=== PATIENT | male | born 1930 | race Caucasian/White ===

== ENCOUNTER 2017-12-05 19:42 | Inpatient (IN) | payer BC, MEDICARE ==
[2017-12-05] MEDS ORDERED: PANTOPRAZOLE 40 MG/10 ML VIAL IVP STA (20:02)
[2017-12-05] MEDS ORDERED: RX INFO: IV CONTRAST WAS GIVEN 1 EACH MISC MISCELLANE PRN (20:02)
[2017-12-05] MEDS ORDERED: ONDANSETRON 4 MG/2 ML VIAL IVP STA (20:02)
[2017-12-05] MEDS ORDERED: SODIUM CHLORIDE 0.9% 1,000 ML IV STA (20:02)
--- NOTE | 2017-12-05 20:20 | ED ---
General Adult HPI <Artemio Alves - Last Filed: 12/06/17 00:14> - General Source: patient, RN notes reviewed, old records reviewed Mode of arrival: EMS Limitations: no limitations <Joel Sanford - Last Filed: 12/09/17 17:50> - General Chief complaint: Abdominal Pain Stated complaint: abd pain Time Seen by Provider: 12/05/17 19:50 - History of Present Illness Initial comments: This is an 87-year-old male the ER for evaluation chest pain epigastric pain substernal pain right lower quadrant pain, pain under his right ribs. Patient has no history of prior pain. No fevers no cough congestion, denies shortness of breath. Patient does have history of CAD, states that this is not feeling his prior heart disease. He has mild nausea but no vomiting. No diarrhea ( Joel Sanford) - Related Data Home Medications Medication Instructions Recorded Confirmed Atorvastatin [Lipitor] 20 mg PO HS 12/06/17 12/06/17 Digoxin [Lanoxin] 125 mcg PO DAILY 12/06/17 12/06/17 Latanoprost [Xalatan 0.005%] 1 drop BOTH EYES HS 12/06/17 12/06/17 Losartan Potassium [Cozaar] 25 mg PO DAILY 12/06/17 12/06/17 Metoprolol Tartrate [Lopressor] 100 mg PO BID 12/06/17 12/06/17 Warfarin [Coumadin] 2 mg PO DAILY 12/06/17 12/06/17 Allergies Allergy/AdvReac Type Severity Reaction Status Date / Time No Known Allergies Allergy Verified 12/05/17 19:55 Review of Systems ROS Other: All systems not noted in ROS Statement are negative. <Artemio Alves - Last Filed: 12/06/17 00:14> ROS Other: All systems not noted in ROS Statement are negative. <Joel Sanford - Last Filed: 12/09/17 17:50> ROS Statement: Those systems with pertinent positive or pertinent negative responses have been documented in the HPI. Past Medical History Past Medical History: Coronary Artery Disease (CAD), Chest Pain / Angina History of Any Multi-Drug Resistant Organisms: None Reported Past Surgical History: Coronary Bypass/CABG Past Psychological History: No Psychological Hx Reported Smoking Status: Former smoker Past Alcohol Use History: None Reported Past Drug Use History: None Reported <Joel Sanford - Last Filed: 12/09/17 17:50> General Exam Limitations: no limitations General appearance: alert, in no apparent distress Head exam: Present: atraumatic, normocephalic, normal inspection Eye exam: Present: normal appearance, PERRL, EOMI. Absent: scleral icterus, conjunctival injection, periorbital swelling ENT exam: Present: normal exam, mucous membranes moist Neck exam: Present: normal inspection. Absent: tenderness, meningismus, lymphadenopathy Respiratory exam: Present: normal lung sounds bilaterally. Absent: respiratory distress, wheezes, rales, rhonchi, stridor Cardiovascular Exam: Present: regular rate, normal rhythm, normal heart sounds. Absent: systolic murmur, diastolic murmur, rubs, gallop, clicks GI/Abdominal exam: Present: soft, normal bowel sounds. Absent: distended, tenderness, guarding, rebound, rigid Extremities exam: Present: normal inspection, full ROM, normal capillary refill. Absent: tenderness, pedal edema, joint swelling, calf tenderness Back exam: Present: normal inspection Neurological exam: Present: alert, oriented X3, CN II-XII intact Psychiatric exam: Present: normal affect, normal mood Skin exam: Present: warm, dry, intact, normal color. Absent: rash <Joel Sanford - Last Filed: 12/09/17 17:50> Vital Signs 12/05/17 12/05/17 12/05/17 19:50 21:25 23:37 Temperature 98.7 F Pulse Rate 111 H 75 90 Respiratory 20 18 20 Rate Blood Pressure 162/74 123/57 122/63 O2 Sat by Pulse 97 98 97 Oximetry 12/06/17 01:07 Temperature Pulse Rate 93 Respiratory Rate Blood Pressure O2 Sat by Pulse Oximetry EKG Findings - EKG Comments: EKG Findings:: EKG shows sinus tach rate of 102, TX 200, QRS 94, QTC 422 <Joel Sanford - Last Filed: 12/09/17 17:50> Medical Decision Making - Lab Data Result diagrams: 12/05/17 20:08 12/05/17 20:08 <Artemio Alves - Last Filed: 12/06/17 00:14> - Lab Data Result diagrams: 12/05/17 20:08 04/07/18 20:08 - Radiology Data Radiology results: report reviewed (CT chest CT abdomen pelvis negative), image reviewed <Joel Sanford - Last Filed: 12/09/17 17:50> - Medical Decision Making I receive this patient as sign out, pending the results of his imaging studies, to have the patient admitted for further evaluation on the acute coronary syndrome pathway. (Artemio Alves) - Lab Data Lab Results 12/05/17 12/05/17 12/05/17 Range/Units 20:08 20:08 20:08 WBC 4.1 (3.8-10.6) k/uL RBC 2.73 L (4.30-5.90) m/uL Hgb 8.9 L (13.0-17.5) gm/dL Hct 27.2 L (39.0-53.0) % MCV 99.6 (80.0-100.0) fL MCH 32.5 (25.0-35.0) pg MCHC 32.6 (31.0-37.0) g/dL RDW 18.8 H (11.5-15.5) % Plt Count 128 L (150-450) k/uL Neutrophils % 82 % Lymphocytes % 9 % Monocytes % 4 % Eosinophils % 0 % Basophils % 0 % Neutrophils # 3.4 (1.3-7.7) k/uL Lymphocytes # 0.4 L (1.0-4.8) k/uL Monocytes # 0.2 (0-1.0) k/uL Eosinophils # 0.0 (0-0.7) k/uL Basophils # 0.0 (0-0.2) k/uL Manual Slide Review Performed Large Platelets Present Hypochromasia Slight Basophilic Stippling Present Anisocytosis Slight Macrocytosis Slight Ovalocytes Present Fragmented RBCs Present Sodium 143 (137-145) mmol/L Potassium 4.2 (3.5-5.1) mmol/L Chloride 106 (98-107) mmol/L Carbon Dioxide 26 (22-30) mmol/L Anion Gap 11 mmol/L BUN 12 (9-20) mg/dL Creatinine 0.60 L (0.66-1.25) mg/dL Est GFR (CKD-EPI)AfAm >90 (>60 ml/min/1.73 sqM) Est GFR (CKD-EPI)NonAf >90 (>60 ml/min/1.73 sqM) Glucose 137 H (74-99) mg/dL Calcium 8.7 (8.4-10.2) mg/dL Total Bilirubin 0.7 (0.2-1.3) mg/dL AST 13 L (17-59) U/L ALT 13 L (21-72) U/L Alkaline Phosphatase 117 (38-126) U/L Troponin I 0.064 H* (0.000-0.034) ng/mL Total Protein 5.9 L (6.3-8.2) g/dL Albumin 3.2 L (3.5-5.0) g/dL Amylase 61 (30-110) U/L Lipase 43 (23-300) U/L Critical Care Time Critical Care Time: Yes Total Critical Care Time: 31 <Joel Sanford - Last Filed: 12/09/17 17:50> Disposition <Artemio Alves - Last Filed: 12/06/17 00:14> <Joel Sanford - Last Filed: 12/09/17 17:50> Clinical Impression: Acute coronary syndrome Disposition: ADMITTED IP TO THIS HOSP Condition: Fair
[2017-12-05 20:22] LABS: Anisocytosis Slight; Basophils % (A) 0 %; Eosinophils % (A) 0 %; HCT 27.2 % (39.0-53.0); HGB 8.9 gm/dL (13.0-17.5); Hypochromasia Slight; Lymphocytes # (A) 0.4 k/uL (1.0-4.8); Lymphocytes % (A) 9 %; MCH 32.5 pg (25.0-35.0); MCHC 32.6 g/dL (31.0-37.0); MCV 99.6 fL (80.0-100.0); Macrocytosis Slight; Mean Platelet Volume 13.7; Monocytes # (A) 0.2 k/uL (0-1.0); Monocytes % (A) 4 %; Neutrophils # (A) 3.4 k/uL (1.3-7.7); Neutrophils % (A) 82 %; Platelet Count 128 k/uL (150-450); RBC 2.73 m/uL (4.30-5.90); RDW 18.8 % (11.5-15.5); WBC 4.1 k/uL (3.8-10.6)
[2017-12-05 20:34] LABS: Albumin 3.2 g/dL (3.5-5.0); Amylase 61 U/L (30-110); Chloride 106 mmol/L (98-107); Glucose 137 mg/dL (74-99); Potassium 4.2 mmol/L (3.5-5.1); Total Protein 5.9 g/dL (6.3-8.2)
[2017-12-05 20:35] LABS: ALT 13 U/L (21-72); AST 13 U/L (17-59); Alkaline Phosphatase 117 U/L (38-126); Anion Gap 11 mmol/L; Blood Urea Nitrogen 12 mg/dL (9-20); Calcium 8.7 mg/dL (8.4-10.2); Carbon Dioxide 26 mmol/L (22-30); Lipase 43 U/L (23-300); Sodium 143 mmol/L (137-145); Total Bilirubin 0.7 mg/dL (0.2-1.3)
[2017-12-05 21:06] LABS: RBC Fragments Present
[2017-12-05 21:08] LABS: Basophilic Stippling Present
[2017-12-05 21:09] LABS: Large Platelets Present; Ovalocytes Present
--- NOTE | 2017-12-05 21:29 | CT ---
EXAMINATION TYPE: CT angio chest DATE OF EXAM: 12/05/2017 COMPARISON: NONE HISTORY: chest pain rule out pulmonary embolism CT DLP: 1005 mGycm. Automated Exposure Control for Dose Reduction was Utilized. CONTRAST: CTA scan of the thorax is performed with IV Contrast, patient injected with 100 mL of Isovue 370, pul monary embolism protocol. MIP Images are created on CT scanner and reviewed. FINDINGS: LUNGS: Exam is suboptimal due to significant respiratory motion artifact limiting evaluation for subc entimeter nodularity. There is mild biapical pleural/parenchymal scarring. Moderate underlying emphys ematous change is present. There are patchy reticulonodular infiltrates predominantly in the lingula of the anterior left midlung. There are small bilateral pleural effusions. There is patchy bibasilar atelectasis and/or scarring. No suspicious masses evident. Mild central peribronchial wall thickening is seen. There is 8mm calcified right lower lobe nodule axial image 104. MEDIASTINUM: There is satisfactory enhancement of the pulmonary artery and its branches, there is no CT evidence for pulmonary embolism. There are no greater than 1 cm noncalcified hilar or mediastinal lymph nodes. There are prominent calcified subcarinal and right hilar lymph nodes. Findings consiste nt with old granulomatous disease given calcified right lower lobe nodule also. Post-CABG changes wit h mediastinal clips and sternal wires is seen. No significant pericardial effusion is seen. There is cardiomegaly with a right-sided dual-lead pacemaker/AICD. OTHER: Exaggerated thoracic kyphosis is seen. There is mild to moderate multilevel anterior and later al spurring. Please refer to same day CT abdomen report for complete details on the upper abdomen. Mo derate-sized hiatal hernia is noted. IMPRESSION: 1. No CT evidence for acute pulmonary embolism. 2. Correlate for CHF exacerbation as there is cardiomegaly with small bilateral pleural effusions. 3. Moderate underlying emphysematous change with suspicious reticulonodular lingular infiltrate. Wally elate for pneumonia.
--- NOTE | 2017-12-05 21:35 | CT ---
EXAMINATION TYPE: CT abdomen pelvis w con DATE OF EXAM: 12/05/2017 COMPARISON: NONE HISTORY: Chest and abdominal pain. CT DLP: 1005 mGycm, Automated Exposure Control for Dose Reduction was Utilized. CONTRAST: CT scan of the abdomen and pelvis is performed without oral but with IV Contrast, patient injected wi th 100 mL of Isovue 370. FINDINGS: LUNG BASES: Please refer to same day CTA chest report for complete details LIVER/GB: Cholecystectomy clips are present. PANCREAS: No significant abnormality is seen. SPLEEN: Numerous calcifications consistent with product of old granulomatous disease. ADRENALS: No significant abnormality is seen. KIDNEYS: Simple parapelvic cyst centrally in the left kidney are identified. There is 1.5 cm cyst med ially in the lower pole level left kidney. There is subcentimeter lesion posteriorly mid to lower ochoa e of the right kidney favoring simple cyst. There are renal calculi present bilaterally at upper pole level, largest right kidney measures 6 mm coronal image 61. There is lobulated contour to the bladde r with several outpouchings or diverticulum. BOWEL: Evaluation bowel suboptimal secondary to lack of enteric contrast. There is no suspicious smal l or large bowel dilatation. Moderate size hiatal hernia is noted. PROSTATE/SEMINAL VESICLES: Prostate gland is markedly heterogeneous and felt upper limits of normal i n size. Scattered pelvic phleboliths are seen. LYMPH NODES: No greater than 1cm abdominal or pelvic lymph nodes are appreciated. OSSEOUS STRUCTURES: There is exaggerated lumbar lordosis. There is grade 1 anterolisthesis L4 on L5. There is fairly moderate to advanced disc space narrowing and spurring L1-L2 level. There is prominen t facet arthropathy lower lumbar levels. OTHER: The abdominal aorta is ectatic measuring up to 2.8 cm in diameter. There is moderate periphera l calcified plaque extending into branch vessels. IMPRESSION: No bowel obstruction is seen. No significant acute finding is seen to account for patien t's clinical symptoms.
--- NOTE | 2017-12-05 21:59 | US ---
EXAMINATION TYPE: US gallbladder DATE OF EXAM: 12/05/2017 COMPARISON: CT abdomen and pelvis earlier today. CLINICAL HISTORY: Pain. Abdominal cramping, nausea, cholecystectomy 10 years ago EXAM MEASUREMENTS: Liver Length: 15.8 cm Gallbladder Wall: Surgically absent CBD: 0.6 cm Right Kidney: 10.8 x 4.4 x 5.6 cm Pancreas: Obscured by bowel gas Liver: appears wnl Gallbladder: Surgically absent Evidence for sonographic Jean-Baptiste's sign: no CBD: appears wnl Right Kidney: cystic area mid = 0.7 x 0.6 x 0.8cm. Dense echogenic area mid = 0.7cm, possible stone IMPRESSION: Postcholecystectomy changes. Redemonstration of nonobstructing right renal calculus.
[2017-12-06] MEDS ORDERED: NITROGLYCERIN SL TABS 0.4 MG TAB SUBLINGUAL PRN (00:09)
[2017-12-06] MEDS ORDERED: HEPARIN SODIUM,PORCINE 5,000 UNIT/ML 1 ML VIAL IV ONE (00:09)
[2017-12-06] MEDS: HEPARIN SOD,PORK IN 0.45% NACL 25,000 UNIT in 0.45% NACL 1 500ML.BAG IV SCH (00:45)
[2017-12-06 01:11] LABS: Glucose,Whole Blood 95 mg/dL (75-99)
[2017-12-06 02:34] LABS: Creatine Kinase MB 3.8 ng/mL (0.0-2.4); Troponin I 1.19 ng/mL (0.000-0.034)
[2017-12-06 03:55] LABS: Appearance,Urine Clear (Clear); Bilirubin,Urine Negative (Negative); Blood,Urine Negative (Negative); Color,Urine Yellow; Glucose,Urine (UA) Negative (Negative); Ketones,Urine Negative (Negative); Leukocyte Esterase,Urine Negative (Negative); Nitrite,Urine Negative (Negative); PH, Urine 5.5 (5.0-8.0); Protein,Urine Trace (Negative); Specific Gravity,Urine 1.041 (1.001-1.035)
[2017-12-06] MEDS: ASPIRIN 325 MG TAB PO SCH (08:06)
[2017-12-06 09:03] LABS: Creatine Kinase MB 5.4 ng/mL (0.0-2.4); Troponin I 2.93 ng/mL (0.000-0.034)
--- NOTE | 2017-12-06 12:48 | P.CRDCN ---
History of Present Illness Consult date: 12/06/17 Chief complaint: Chest pain History of present illness: This is a pleasant 87-year-old gentleman who states that he follows with Dr. HAYDER Gilliland in the office as an outpatient with history of coronary artery disease and status post coronary artery bypass grafting with unknown details about the anatomy and the timing of the surgery at this point, obviously severe cardiomyopathy, status post AICD, hypertension, dyslipidemia presented to the emergency room complaining of chest discomfort. The patient was in his usual state of health when he was at home when he suddenly developed chest discomfort and epigastric discomfort as a sharp kind of discomfort with radiation to the left arm and associated shortness of breath with it. No sweating. No dizziness or lightheadedness. And no syncope. The patient was ruled in for acute coronary syndrome. The EKG showed nonspecific changes but the troponin came in to be elevated and continues to be trending up. He has been pain free since he was admitted to the hospital. Currently he is on heparin IV. Also he is on aspirin. Past Medical History Past Medical History: Coronary Artery Disease (CAD), Chest Pain / Angina History of Any Multi-Drug Resistant Organisms: None Reported Past Surgical History: Coronary Bypass/CABG Past Psychological History: No Psychological Hx Reported Smoking Status: Former smoker Past Alcohol Use History: None Reported Past Drug Use History: None Reported Medications and Allergies Home Medications Medication Instructions Recorded Confirmed Type Atorvastatin [Lipitor] 20 mg PO HS 12/06/17 12/06/17 History Digoxin [Lanoxin] 125 mcg PO DAILY 12/06/17 12/06/17 History Latanoprost [Xalatan 0.005%] 1 drop BOTH EYES HS 12/06/17 12/06/17 History Losartan Potassium [Cozaar] 25 mg PO DAILY 12/06/17 12/06/17 History Metoprolol Tartrate [Lopressor] 100 mg PO BID 12/06/17 12/06/17 History Warfarin [Coumadin] 2 mg PO DAILY 12/06/17 12/06/17 History Allergies Allergy/AdvReac Type Severity Reaction Status Date / Time No Known Allergies Allergy Verified 12/05/17 19:55 Physical Exam Vitals: Vital Signs Temp Pulse Resp BP Pulse Ox 12/06/17 08:00 97.7 F 83 16 118/51 99 12/06/17 07:00 85 15 125/66 98 12/06/17 06:00 79 16 125/66 100 12/06/17 05:00 84 16 141/67 97 12/06/17 04:00 98.1 F 84 16 141/67 83 L 12/06/17 03:00 83 15 115/61 98 12/06/17 02:00 81 16 115/61 95 12/06/17 01:07 93 12/05/17 23:37 90 20 122/63 97 12/05/17 21:25 75 18 123/57 98 12/05/17 19:50 98.7 F 111 H 20 162/74 97 Intake and Output 12/05/17 12/06/17 12/06/17 22:59 06:59 14:59 Intake Total 1240 Output Total 650 3200 Balance 590 -3200 Intake: IV 40 Sodium Chloride 0.9% 1, 40 000 ml @ 999 mls/hr IV . Q1H1M STA Rx#:[id number] Amount of Fluid Infused ( 1200 ml) Output: Urine 650 2400 Straight 800 Post Void Residual 800 Other: Voiding Method Bedpan Bedpan Urinal Urinal Weight 65.771 kg 66.7 kg - Constitutional General appearance: no acute distress - Respiratory Respiratory: bilateral: CTA - Cardiovascular Rhythm: regular Heart sounds: normal: S1, S2 Results 12/05/17 20:08 12/05/17 20:08 Cardiac Enzymes 12/05/17 12/05/17 12/06/17 Range/Units 20:08 20:08 01:33 AST 13 L (17-59) U/L CK-MB (CK-2) 3.8 H* (0.0-2.4) ng/mL Troponin I 0.064 H* 1.190 H* (0.000-0.034) ng/mL 12/06/17 Range/Units 07:54 AST (17-59) U/L CK-MB (CK-2) 5.4 H* (0.0-2.4) ng/mL Troponin I 2.930 H* (0.000-0.034) ng/mL Coagulation 12/06/17 Range/Units 07:54 APTT 60.9 H (22.0-30.0) sec CBC 12/05/17 Range/Units 20:08 WBC 4.1 (3.8-10.6) k/uL RBC 2.73 L (4.30-5.90) m/uL Hgb 8.9 L (13.0-17.5) gm/dL Hct 27.2 L (39.0-53.0) % Plt Count 128 L (150-450) k/uL Comprehensive Metabolic Panel 12/05/17 Range/Units 20:08 Sodium 143 (137-145) mmol/L Potassium 4.2 (3.5-5.1) mmol/L Chloride 106 (98-107) mmol/L Carbon Dioxide 26 (22-30) mmol/L BUN 12 (9-20) mg/dL Creatinine 0.60 L (0.66-1.25) mg/dL Glucose 137 H (74-99) mg/dL Calcium 8.7 (8.4-10.2) mg/dL AST 13 L (17-59) U/L ALT 13 L (21-72) U/L Alkaline Phosphatase 117 (38-126) U/L Total Protein 5.9 L (6.3-8.2) g/dL Albumin 3.2 L (3.5-5.0) g/dL Current Medications Generic Name Dose Route Start Last Admin Trade Name Freq PRN Reason Stop Dose Admin Aspirin 325 mg 12/06/17 09:00 12/06/17 08:06 Aspirin PO Not Given DAILY MARCIA Heparin Sodium/Sodium Chloride 500 mls @ 15.78 mls/hr 12/06/17 00:15 00:45 25,000 unit/ Sodium Chloride IV 12 units/kg/hr .Q24H MARCIA 15.78 mls/hr Protocol Administration 12 UNITS/KG/HR Miscellaneous Information 1 each 12/05/17 20:02 Rx Info: Iv Contrast Was Given MISCELLANE 12/07/17 20:03 DAILY PRN Per Protocol Nitroglycerin 0.4 mg 12/06/17 00:09 Nitrostat SUBLINGUAL Q5M PRN Chest Pain Intake and Output 12/05/17 12/06/17 12/06/17 22:59 06:59 14:59 Intake Total 1240 Output Total 650 3200 Balance 590 -3200 Intake: IV 40 Sodium Chloride 0.9% 1, 40 000 ml @ 999 mls/hr IV . Q1H1M STA Rx#:[id number] Amount of Fluid Infused ( 1200 ml) Output: Urine 650 2400 Straight 800 Post Void Residual 800 Other: Voiding Method Bedpan Bedpan Urinal Urinal Weight 65.771 kg 66.7 kg 12/05/17 20:08 12/05/17 20:08 Assessment and Plan Assessment: Assessment #1 acute non-ST elevation myocardial infarction #2 known CAD and status post CABG #3 status post AICD #4 hypertension #5 dyslipidemia Plan #1 continue the aspirin and heparin #2 restart the patient back on beta dacia, NASIMA inhibitor, and statin #3 I will check the AICD #4 obtained the previous medical records from the office #5 obtain an echocardiogram was Doppler #6 follow-up with the patient Thank you for allowing us participate in his care and we'll continue following up with the patient
[2017-12-06 15:07] LABS: INR 2.3 (<1.2); Prothrombin Time 20.9 sec (9.0-12.0)
[2017-12-06] MEDS ORDERED: HEPARIN SODIUM,PORCINE 5,000 UNIT/ML 1 ML VIAL IV PRN (15:47)
--- NOTE | 2017-12-06 17:02 | P.HPIM ---
History of Present Illness H&P Date: 12/06/17 Chief Complaint: Chest pain This is a pleasant 87-year-old gentleman who states that he follows with Dr. HAYDER Gilliland in the office as an outpatient with history of coronary artery disease and status post coronary artery bypass grafting with unknown details about the anatomy and the timing of the surgery at this point, obviously severe cardiomyopathy, status post AICD, hypertension, dyslipidemia presented to the emergency room complaining of chest discomfort. The patient was in his usual state of health when he was at home when he suddenly developed chest discomfort and epigastric discomfort as a sharp kind of discomfort with radiation to the left arm and associated shortness of breath with it. No sweating. No dizziness or lightheadedness. And no syncope. The patient was ruled in for acute coronary syndrome. The EKG showed nonspecific changes but the troponin came in to be elevated and continues to be trending up. He has been pain free since he was admitted to the hospital. Currently he is on heparin IV. Also he is on aspirin. Review of Systems Constitutional: Denies as per HPI, Denies anorexia, Denies chills, Denies chronic headaches, Denies chronic pain, Denies daytime sleepiness, Denies fatigue, Denies fever, Denies lethargy, Denies malaise, Denies night sweats, Denies poor appetite, Denies sweats, Denies weakness, Denies weight gain, Denies weight loss Eyes: denies blurred vision, denies decreased vision, denies loss of vision Ears: deny: decreased hearing Ears, nose, mouth and throat: Denies dysphagia, Denies headache, Denies nasal congestion Cardiovascular: Reports chest pain, Reports palpitations, Reports shortness of breath Respiratory: Reports dyspnea, Denies cough, Denies hemoptysis, Denies snoring, Denies wheezing Gastrointestinal: Denies abdominal pain, Denies diarrhea, Denies nausea, Denies vomiting Genitourinary: Denies dysuria, Denies hematuria, Denies polyuria Musculoskeletal: Denies frequent falls, Denies gait dysfunction, Denies leg numbness/tingling Integumentary: Denies darkening of skin, Denies depigmentation, Denies rash, Denies wounds Neurological: Denies double vision, Denies headaches, Denies syncope, Denies visual changes Psychiatric: Denies anxiety, Denies depression Endocrine: Denies cold intolerance, Denies heat intolerance, Denies polydipsia, Denies polyuria Hematologic/Lymphatic: Denies easy bleeding, Denies easy bruising, Denies lymphedema Past Medical History Past Medical History: Coronary Artery Disease (CAD), Chest Pain / Angina Additional Past Medical History / Comment(s): [place] in 1991 with two stents placed. Last Myocardial Infarction Date:: 1991 History of Any Multi-Drug Resistant Organisms: None Reported Past Surgical History: Coronary Bypass/CABG Additional Past Surgical History / Comment(s): CABG x3. Past Anesthesia/Blood Transfusion Reactions: No Reported Reaction Past Psychological History: No Psychological Hx Reported Smoking Status: Former smoker Past Alcohol Use History: None Reported Past Drug Use History: None Reported Medications and Allergies Home Medications Medication Instructions Recorded Confirmed Type Atorvastatin [Lipitor] 20 mg PO HS 12/06/17 12/06/17 History Digoxin [Lanoxin] 125 mcg PO DAILY 12/06/17 12/06/17 History Latanoprost [Xalatan 0.005%] 1 drop BOTH EYES HS 12/06/17 12/06/17 History Losartan Potassium [Cozaar] 25 mg PO DAILY 12/06/17 12/06/17 History Metoprolol Tartrate [Lopressor] 100 mg PO BID 12/06/17 12/06/17 History Warfarin [Coumadin] 2 mg PO DAILY 12/06/17 12/06/17 History Allergies Allergy/AdvReac Type Severity Reaction Status Date / Time No Known Allergies Allergy Verified 12/05/17 19:55 Physical Exam Vitals: Vital Signs Temp Pulse Resp BP Pulse Ox 12/06/17 16:00 98.4 F 88 14 99/50 99 12/06/17 12:00 97.9 F 84 14 114/62 100 12/06/17 08:00 97.7 F 83 16 118/51 99 12/06/17 07:00 85 15 125/66 98 12/06/17 06:00 79 16 125/66 100 12/06/17 05:00 84 16 141/67 97 12/06/17 04:00 98.1 F 84 16 141/67 83 L 12/06/17 03:00 83 15 115/61 98 12/06/17 02:00 81 16 115/61 95 12/06/17 01:07 93 12/05/17 23:37 90 20 122/63 97 12/05/17 21:25 75 18 123/57 98 12/05/17 19:50 98.7 F 111 H 20 162/74 97 Intake and Output 12/06/17 12/06/17 12/06/17 06:59 14:59 22:59 Intake Total 1240 Output Total 650 3200 Balance 590 -3200 Intake: IV 40 Sodium Chloride 0.9% 1, 40 000 ml @ 999 mls/hr IV . Q1H1M STA Rx#:[id number] Amount of Fluid Infused ( 1200 ml) Output: Urine 650 2400 Straight 800 Post Void Residual 800 Other: Voiding Method Bedpan Bedpan Bedpan Urinal Urinal Urinal Weight 66.7 kg Results CBC & Chem 7: 12/05/17 20:08 12/05/17 20:08 Labs: Abnormal Lab Results - Last 24 Hours (Table) 12/05/17 12/05/17 12/05/17 Range/Units 20:08 20:08 20:08 RBC 2.73 L (4.30-5.90) m/uL Hgb 8.9 L (13.0-17.5) gm/dL Hct 27.2 L (39.0-53.0) % RDW 18.8 H (11.5-15.5) % Plt Count 128 L (150-450) k/uL Lymphocytes # 0.4 L (1.0-4.8) k/uL PT (9.0-12.0) sec INR (<1.2) APTT (22.0-30.0) sec Creatinine 0.60 L (0.66-1.25) mg/dL Glucose 137 H (74-99) mg/dL AST 13 L (17-59) U/L ALT 13 L (21-72) U/L Total Creatine Kinase (55-170) U/L CK-MB (CK-2) (0.0-2.4) ng/mL Troponin I 0.064 H* (0.000-0.034) ng/mL Total Protein 5.9 L (6.3-8.2) g/dL Albumin 3.2 L (3.5-5.0) g/dL Ur Specific Alexander (1.001-1.035) Urine Protein (Negative) 12/06/17 12/06/17 12/06/17 Range/Units 01:33 03:40 07:54 RBC (4.30-5.90) m/uL Hgb (13.0-17.5) gm/dL Hct (39.0-53.0) % RDW (11.5-15.5) % Plt Count (150-450) k/uL Lymphocytes # (1.0-4.8) k/uL PT (9.0-12.0) sec INR (<1.2) APTT (22.0-30.0) sec Creatinine (0.66-1.25) mg/dL Glucose (74-99) mg/dL AST (17-59) U/L ALT (21-72) U/L Total Creatine Kinase 200 H 311 H (55-170) U/L CK-MB (CK-2) 3.8 H* 5.4 H* (0.0-2.4) ng/mL Troponin I 1.190 H* 2.930 H* (0.000-0.034) ng/mL Total Protein (6.3-8.2) g/dL Albumin (3.5-5.0) g/dL Ur Specific Alexander 1.041 H (1.001-1.035) Urine Protein Trace H (Negative) 12/06/17 12/06/17 12/06/17 Range/Units 07:54 13:56 14:27 RBC (4.30-5.90) m/uL Hgb (13.0-17.5) gm/dL Hct (39.0-53.0) % RDW (11.5-15.5) % Plt Count (150-450) k/uL Lymphocytes # (1.0-4.8) k/uL PT 20.9 H (9.0-12.0) sec INR 2.3 H (<1.2) APTT 60.9 H (22.0-30.0) sec Creatinine (0.66-1.25) mg/dL Glucose (74-99) mg/dL AST (17-59) U/L ALT (21-72) U/L Total Creatine Kinase (55-170) U/L CK-MB (CK-2) (0.0-2.4) ng/mL Troponin I 1.920 H* (0.000-0.034) ng/mL Total Protein (6.3-8.2) g/dL Albumin (3.5-5.0) g/dL Ur Specific Alexander (1.001-1.035) Urine Protein (Negative) Microbiology - Last 24 Hours (Table) 12/06/17 03:40 Urine Culture - Preliminary Urine,Catheterized Thrombosis Risk Factor Assmnt - Choose All That Apply Any of the Below Risk Factors Present?: No Other Risk Factors: Yes Each Risk Factor Represents 2 Points: Age 61-74 years Other congenital or acquired thrombophilia - If yes, enter type in comment: No Thrombosis Risk Factor Assessment Total Risk Factor Score: 2 Thrombosis Risk Factor Assessment Level: Low Risk Assessment and Plan Assessment: 1. Acute non-STEMI - We will admit the patient to ICU - Monitor EKG and trend troponins closely - She does started on IV heparin we will continue per protocol - Patient is started on aspirin and beta blockers and rufina inhibitors along with statin - We will obtain 2-D echocardiogram - Consult cardiology; we appreciate their expertise in management of this patient 2. Coronary artery disease status post CABG; as above 3. Status post AICD; cardiology is consulted and will order AICD check 4. Hypertension - Continue with current home medications - Monitor blood pressure closely and adjust medications as needed 5. Hyperlipidemia - Patient remains on statins and tolerating well DVT prophylaxis; SCDs/IV heparin CODE STATUS; full code Time with Patient: Greater than 30
[2017-12-06] MEDS: LATANOPROST 0.005% OPHTH DROPS 2.5 ML BTL BOTH EYES SCH (21:06)
[2017-12-06] MEDS: METOPROLOL TARTRATE 50 MG TAB PO SCH (21:06)
[2017-12-06] MEDS: ATORVASTATIN 20 MG TAB PO SCH (21:06)
[2017-12-07 07:06] LABS: Cholesterol 61 mg/dL (<200); HDL Cholesterol 28 mg/dL (40-60); LDL Cholesterol,Calculated 19 mg/dL (0-99); Triglycerides 68 mg/dL (<150)
[2017-12-07] MEDS: HEPARIN SOD,PORK IN 0.45% NACL 25,000 UNIT in 0.45% NACL 1 500ML.BAG IV SCH (08:30)
[2017-12-07] MEDS: DIGOXIN 125 MCG TAB PO SCH (08:34)
[2017-12-07] MEDS: LOSARTAN 25 MG TAB PO SCH (08:34)
[2017-12-07] MEDS: METOPROLOL TARTRATE 50 MG TAB PO SCH ×2 (08:34→21:16)
[2017-12-07] MEDS: ASPIRIN 325 MG TAB PO SCH (08:34)
[2017-12-07] MEDS ORDERED: WARFARIN 2 MG TAB PO SCH (09:00)
--- NOTE | 2017-12-07 10:38 | P.PN ---
Subjective Progress Note Date: 12/07/17 This is a pleasant 87-year-old gentleman who follows regularly with Dr. Enrike Gilliland in the office. He has a known history of coronary artery disease with prior bypass surgery, prior PCI's, ischemic cardiomyopathy prior AICD, paroxysmal atrial fibrillation, on Coumadin for anticoagulation, hypertension, hyperlipidemia, who presented to the hospital with symptoms of chest and epigastric discomfort. Patient ruled in for acute coronary syndrome, EKG showed nonspecific changes but troponin came back to be abnormal. Troponins 1.9 , 1.2, 0.9. Since the patient was admitted to the hospital, he has had no further symptoms of chest discomfort. CTA of the chest was performed which did not reveal a pulmonary embolism, it did show small bilateral pleural effusions. Echocardiogram with Doppler study has been performed but is yet pending. Patient was seen and examined this morning, denies any chest discomfort, breathing overall is stable. We did have the AICD. Interrogated this morning, functioning appropriately. Blood pressure this morning 104/50 with a heart rate in the 80s to 90s, afebrile, 95% on room air. INR yesterday 2.3. We will decrease the aspirin 81 mg daily today, discontinue IV heparin. Continue losartan, Lanoxin and metoprolol. Objective - Vital Signs Vital signs: Vital Signs Temp 97.6 F 12/07/17 08:00 Pulse 87 12/07/17 08:00 Resp 18 12/07/17 08:00 BP 104/51 12/07/17 08:00 Pulse Ox 95 12/07/17 08:00 Intake & Output 12/06/17 12/07/17 12/07/17 18:59 06:59 18:59 Output Total 3200 Balance -3200 Weight 71.5 kg Output: Urine 2400 Straight 800 Post Void Residual 800 Other: Voiding Method Bedpan Indwelling Catheter Indwelling Catheter Urinal - Exam PHYSICAL EXAMINATION: HEENT: Head is atraumatic, normocephalic. Pupils equal, round. Neck is supple. There is no elevated jugular venous pressure. HEART EXAMINATION: Heart S1, S2 normal. No murmur or gallop heard. CHEST EXAMINATION: Lungs are clear to auscultation and precussion. No chest wall tenderness is noted on palpation or with deep breathing. ABDOMEN: Soft, nontender. Bowel sounds are heard. No organomegaly noted. EXTREMITIES: 2+ peripheral pulses with no evidence of peripheral edema and no calf tenderness noted. NEUROLOGIC patient is awake, alert and oriented -3. . - Labs CBC & Chem 7: 12/05/17 20:08 12/05/17 20:08 Labs: Abnormal Lab Results - Last 24 Hours (Table) 12/06/17 12/06/17 12/06/17 Range/Units 13:56 14:27 20:19 PT 20.9 H (9.0-12.0) sec INR 2.3 H (<1.2) APTT (22.0-30.0) sec Troponin I 1.920 H* 1.220 H* (0.000-0.034) ng/mL HDL Cholesterol (40-60) mg/dL 12/07/17 12/07/17 12/07/17 Range/Units 01:20 06:25 06:25 PT (9.0-12.0) sec INR (<1.2) APTT 52.8 H (22.0-30.0) sec Troponin I 0.970 H* (0.000-0.034) ng/mL HDL Cholesterol 28 L (40-60) mg/dL Microbiology - Last 24 Hours (Table) 12/06/17 03:40 Urine Culture - Preliminary Urine,Catheterized Assessment and Plan Plan: Assessment and plan #1 non-ST elevation CA, continue maximal medical therapy. #2 known history of coronary artery disease with prior bypass surgery and PCI's. #3 ischemic cardio myopathy status post AICD implant. AICD was interrogated this morning, functioning appropriately. #4 hypertension #5 hyperlipidemia Plan We will review the echocardiogram with Doppler study. Decrease aspirin to 81 mg daily, discontinue IV heparin. Continue Lanoxin, beta dacia, and angiotensin dacia. Further recommendations to follow. DNP note has been reviewed, I agree with a documented findings and plan of care. Patient was seen and examined.
[2017-12-07 11:57] LABS: INR 2.1 (<1.2); Prothrombin Time 18.6 sec (9.0-12.0)
--- NOTE | 2017-12-07 18:40 | ECHOF ---
Referral Reason:acs MEASUREMENTS -------- HEIGHT: 182.9 cm WEIGHT: 71.2 kg BP: 102/52 IVSd: 0.8 cm (0.6 - 1.1) LVIDd: 4.7 cm (3.9 - 5.3) LVPWd: 1.0 cm (0.6 - 1.1) IVSs: 0.8 cm LVIDs: 4.6 cm LVPWs: 1.7 cm LAESV Index (A-L): 30.20 ml/m Ao Diam: 3.3 cm (2.0 - 3.7) LA Diam: 3.3 cm (2.7 - 3.8) AV Cusp: 1.5 cm (1.5 - 2.6) EPSS: 2.0 cm MV E Yoni: 0.54 m/s MV DecT: 174 ms MV A Yoni: 0.72 m/s MV E/A Ratio: 0.75 AR PHT: 1167 ms RAP: 5.00 mmHg RVSP: 21.57 mmHg MV EF SLOPE: 52.94 mm/s (70 - 150) MV EXCURSION: 14.58 mm (> 18.000) FINDINGS -------- Sinus rhythm. Pacerwire seen in RV and RA. This was a technically difficult study with suboptimal views. The left ventricular size is normal. Left ventricular wall thickness is normal. There is severe g lobal hypokinesis of LV . Overall left ventricular systolic function is severely impaired with, an EF between 20 - 25 %. The right ventricle is normal in size and function. The left atrium is normal in size. The right atrium is normal in size. Aortic valve is trileaflet and is mildly thickened. Trace amount of aortic regurgitation. The mitral valve leaflets are mildly thickened. Mild mitral regurgitation is present. Mild tricuspid regurgitation present. The right ventricular systolic pressure, as measured by Doppl er, is 21.57mmHg. Pulmonic valve appears structurally normal. The aortic root size is normal. The pericardium is normal. CONCLUSIONS -------- 1. Sinus rhythm. 2. Pacerwire seen in RV and RA. 3. This was a technically difficult study with suboptimal views. 4. The left ventricular size is normal. 5. Left ventricular wall thickness is normal. 6. There is severe global hypokinesis of LV . 7. Overall left ventricular systolic function is severely impaired with, an EF between 20 - 25 %. 8. The right ventricle is normal in size and function. 9. The left atrium is normal in size. 10. The right atrium is normal in size. 11. Aortic valve is trileaflet and is mildly thickened. 12. Trace amount of aortic regurgitation. 13. The mitral valve leaflets are mildly thickened. 14. Mild mitral regurgitation is present. 15. Mild tricuspid regurgitation present. 16. The right ventricular systolic pressure, as measured by Doppler, is 21.57mmHg. 17. Pulmonic valve appears structurally normal. 18. The aortic root size is normal. 19. The pericardium is normal. SURGERY NURSE: Carmen Cardenas RDCS
[2017-12-07] MEDS: ATORVASTATIN 20 MG TAB PO SCH (21:15)
[2017-12-07] MEDS: LATANOPROST 0.005% OPHTH DROPS 2.5 ML BTL BOTH EYES SCH (21:15)
[2017-12-08 06:42] LABS: INR 1.7 (<1.2)
[2017-12-08] MEDS: ASPIRIN 81 MG PO SCH (08:32)
[2017-12-08] MEDS: DIGOXIN 125 MCG TAB PO SCH (08:32)
[2017-12-08] MEDS: METOPROLOL TARTRATE 50 MG TAB PO SCH ×2 (08:41→21:15)
[2017-12-08] MEDS: LOSARTAN 25 MG TAB PO SCH (12:32)
--- NOTE | 2017-12-08 14:25 | P.PN ---
Subjective Progress Note Date: 12/08/17 This is a pleasant 87-year-old gentleman who follows regularly with Dr. Enrike Gilliland in the office. He has a known history of coronary artery disease with prior bypass surgery, prior PCI's, ischemic cardiomyopathy prior AICD, paroxysmal atrial fibrillation, on Coumadin for anticoagulation, hypertension, hyperlipidemia, who presented to the hospital with symptoms of chest and epigastric discomfort. Patient ruled in for acute coronary syndrome, EKG showed nonspecific changes but troponin came back to be abnormal. Troponins 1.9 , 1.2, 0.9. Since the patient was admitted to the hospital, he has had no further symptoms of chest discomfort. CTA of the chest was performed which did not reveal a pulmonary embolism, it did show small bilateral pleural effusions. Echocardiogram with Doppler study has been performed but is yet pending. Patient was seen and examined this morning, denies any chest discomfort, breathing overall is stable. We did have the AICD. Interrogated this morning, functioning appropriately. Blood pressure this morning 104/50 with a heart rate in the 80s to 90s, afebrile, 95% on room air. INR yesterday 2.3. We will decrease the aspirin 81 mg daily today, discontinue IV heparin. Continue losartan, Lanoxin and metoprolol. 12/08/2017 Patient seen and examined this morning, blood pressure this morning 88/43, heart rate in the 90s, 94% on room air. Patient was on 100 mg of metoprolol twice a day, we'll decrease this to 50 twice a day today. INR is 1.6. We will give the patient 5 mg of Coumadin today, from tomorrow resume home dose of 2 mg daily Objective - Vital Signs Vital signs: Vital Signs Temp 97.3 F L 12/08/17 12:00 Pulse 95 12/08/17 12:00 Resp 18 12/08/17 12:00 BP 129/59 12/08/17 12:00 Pulse Ox 97 12/08/17 12:00 Intake & Output 12/07/17 12/08/17 12/08/17 18:59 06:59 18:59 Intake Total 240 360 Output Total 425 650 Balance -185 -650 360 Weight 72.5 kg Intake: Oral 240 360 Output: Urine 425 650 Other: Voiding Method Indwelling Catheter Indwelling Catheter Indwelling Catheter # Voids 1 - Exam PHYSICAL EXAMINATION: HEENT: Head is atraumatic, normocephalic. Pupils equal, round. Neck is supple. There is no elevated jugular venous pressure. HEART EXAMINATION: Heart S1, S2 normal. No murmur or gallop heard. CHEST EXAMINATION: Lungs are clear to auscultation and precussion. No chest wall tenderness is noted on palpation or with deep breathing. ABDOMEN: Soft, nontender. Bowel sounds are heard. No organomegaly noted. EXTREMITIES: 2+ peripheral pulses with no evidence of peripheral edema and no calf tenderness noted. NEUROLOGIC patient is awake, alert and oriented -3. . - Labs CBC & Chem 7: 12/05/17 20:08 12/05/17 20:08 Labs: Abnormal Lab Results - Last 24 Hours (Table) 12/08/17 Range/Units 05:41 PT 16.0 H (9.0-12.0) sec INR 1.7 H (<1.2) Microbiology - Last 24 Hours (Table) 12/06/17 03:40 Urine Culture - Final Urine,Catheterized Assessment and Plan Plan: Assessment and plan #1 non-ST elevation ND, continue maximal medical therapy. #2 known history of coronary artery disease with prior bypass surgery and PCI's. #3 ischemic cardio myopathy status post AICD implant. AICD was interrogated this morning, functioning appropriately. #4 hypertension #5 hyperlipidemia Plan Echocardiogram with Doppler study revealed an ejection fraction of 20-25%. Because of low blood pressure this morning we will decrease the dose of beta dacia to 50 mg twice a day, add Aldactone to the patient's medication regime , continue losartan, Lipitor, baby aspirin, and Lanoxin. DNP note has been reviewed, I agree with a documented findings and plan of care. Patient was seen and examined.
[2017-12-08] MEDS: SPIRONOLACTONE 25 MG TAB PO SCH (16:35)
[2017-12-08] MEDS ORDERED: WARFARIN 2 MG TAB PO SCH (18:00)
[2017-12-08] MEDS: ATORVASTATIN 20 MG TAB PO SCH (21:15)
[2017-12-08] MEDS: LATANOPROST 0.005% OPHTH DROPS 2.5 ML BTL BOTH EYES SCH (21:15)
[2017-12-09] MEDS: ASPIRIN 81 MG PO SCH (08:40)
[2017-12-09] MEDS: DIGOXIN 125 MCG TAB PO SCH (08:40)
[2017-12-09] MEDS: METOPROLOL TARTRATE 50 MG TAB PO SCH ×2 (08:40→21:17)
[2017-12-09] MEDS: SPIRONOLACTONE 25 MG TAB PO SCH (08:40)
[2017-12-09 11:31] LABS: INR 1.5 (<1.2); Prothrombin Time 13.6 sec (9.0-12.0)
--- NOTE | 2017-12-09 12:24 | P.PN ---
Subjective Progress Note Date: 12/09/17 This is a pleasant 87-year-old gentleman who follows regularly with Dr. Enrike Gilliland in the office. He has a known history of coronary artery disease with prior bypass surgery, prior PCI's, ischemic cardiomyopathy prior AICD, paroxysmal atrial fibrillation, on Coumadin for anticoagulation, hypertension, hyperlipidemia, who presented to the hospital with symptoms of chest and epigastric discomfort. Patient ruled in for acute coronary syndrome, EKG showed nonspecific changes but troponin came back to be abnormal. Troponins 1.9 , 1.2, 0.9. Since the patient was admitted to the hospital, he has had no further symptoms of chest discomfort. CTA of the chest was performed which did not reveal a pulmonary embolism, it did show small bilateral pleural effusions. Echocardiogram with Doppler study has been performed but is yet pending. Patient was seen and examined this morning, denies any chest discomfort, breathing overall is stable. We did have the AICD. Interrogated this morning, functioning appropriately. Blood pressure this morning 104/50 with a heart rate in the 80s to 90s, afebrile, 95% on room air. INR yesterday 2.3. We will decrease the aspirin 81 mg daily today, discontinue IV heparin. Continue losartan, Lanoxin and metoprolol. 12/08/2017 Patient seen and examined this morning, blood pressure this morning 88/43, heart rate in the 90s, 94% on room air. Patient was on 100 mg of metoprolol twice a day, we'll decrease this to 50 twice a day today. INR is 1.6. We will give the patient 5 mg of Coumadin today, from tomorrow resume home dose of 2 mg daily. 12/09/2017 Patient seen and examined this morning, feeling well overall, eager to get up ambulating. Blood pressure 112/50, heart rate in the 90s. Objective - Vital Signs Vital signs: Vital Signs Temp 99.4 F 12/09/17 08:00 Pulse 102 H 12/09/17 08:00 Resp 18 12/09/17 08:00 BP 94/50 12/09/17 08:00 Pulse Ox 94 L 12/09/17 08:00 Intake & Output 12/08/17 12/09/17 12/09/17 18:59 06:59 18:59 Intake Total 360 300 240 Output Total 300 475 Balance 60 -175 240 Weight 72.5 kg Intake: IV 60 .9 60 Oral 360 240 240 Output: Urine 300 475 Other: Voiding Method Indwelling Catheter - Exam PHYSICAL EXAMINATION: HEENT: Head is atraumatic, normocephalic. Pupils equal, round. Neck is supple. There is no elevated jugular venous pressure. HEART EXAMINATION: Heart S1, S2 normal. No murmur or gallop heard. CHEST EXAMINATION: Lungs are clear to auscultation and precussion. No chest wall tenderness is noted on palpation or with deep breathing. ABDOMEN: Soft, nontender. Bowel sounds are heard. No organomegaly noted. EXTREMITIES: 2+ peripheral pulses with no evidence of peripheral edema and no calf tenderness noted. NEUROLOGIC patient is awake, alert and oriented -3. . - Labs CBC & Chem 7: 12/05/17 20:08 12/05/17 20:08 Labs: Abnormal Lab Results - Last 24 Hours (Table) 12/09/17 Range/Units 10:20 PT 13.6 H (9.0-12.0) sec INR 1.5 H (<1.2)
[2017-12-09] MEDS: LOSARTAN 25 MG TAB PO SCH (12:54)
--- NOTE | 2017-12-09 17:40 | P.PN ---
Subjective Progress Note Date: 12/07/17 Principal diagnosis: Acute non-ST elevated [place] This is a pleasant 87-year-old gentleman who states that he follows with Dr. HAYDER Gilliland in the office as an outpatient with history of coronary artery disease and status post coronary artery bypass grafting with unknown details about the anatomy and the timing of the surgery at this point, obviously severe cardiomyopathy, status post AICD, hypertension, dyslipidemia presented to the emergency room complaining of chest discomfort. The patient was in his usual state of health when he was at home when he suddenly developed chest discomfort and epigastric discomfort as a sharp kind of discomfort with radiation to the left arm and associated shortness of breath with it. No sweating. No dizziness or lightheadedness. And no syncope. The patient was ruled in for acute coronary syndrome. The EKG showed nonspecific changes but the troponin came in to be elevated and continues to be trending up. He has been pain free since he was admitted to the hospital. Currently he is on heparin IV. Also he is on aspirin. 12/07/2017 Patient denied any complaints of chest discomfort or shortness of breath. Patient did have AICD interrogation this morning. Otherwise blood pressure is slightly low with SBP and 100s. CT chest showed no evidence of pulmonary embolism. 2-D echo was done and report is pending. Aspirin has been discontinued. Patient is being continued on metoprolol and Lanoxin and losartan. Otherwise patient is a poor historian. No fever no chills. No commerce of nausea vomiting or abdominal pain. Discussed with Family at bedside. All other review of systems negative except the above Current medications reviewed. Objective - Vital Signs Vital signs: Vital Signs Temp 97.6 F 12/07/17 12:00 Pulse 87 12/07/17 12:00 Resp 18 12/07/17 12:00 BP 89/43 12/07/17 12:00 Pulse Ox 97 12/07/17 12:00 Intake & Output 12/06/17 12/07/17 12/07/17 18:59 06:59 18:59 Output Total 3200 Balance -3200 Weight 71.5 kg Output: Urine 2400 Straight 800 Post Void Residual 800 Other: Voiding Method Bedpan Indwelling Catheter Indwelling Catheter Urinal - Exam PHYSICAL EXAMINATION: Patient is lying in the bed comfortably, no acute distress, awake alert and oriented 1 with underlying dementia.. HEENT: Normocephalic. Neck is supple. Pupils reactive. Nostrils clear. Oral cavity is moist. Ears reveal no drainage. Neck reveals no JVD, carotid bruits, or thyromegaly. CHEST EXAMINATION: Trachea is central. Symmetrical expansion. Lung salter clear to auscultation and percussion. CARDIAC: Normal S1, S2 with no gallops. No murmurs ABDOMEN: Soft. Bowel sounds normal. No organomegaly. No abdominal bruits. Extremities: reveal no edema. No clubbing or cyanosis Neurologically awake, alert, with well-coordinated movements. No focal deficits noted Skin: No rash or skin lesions. Psychiatric: Cooperative. Could not be assessed completely Musculoskeletal: No joint swelling or deformity. Normal range of motion. - Labs CBC & Chem 7: 12/05/17 20:08 12/05/17 20:08 Labs: Abnormal Lab Results - Last 24 Hours (Table) 12/06/17 12/07/17 12/07/17 Range/Units 20:19 01:20 06:25 PT (9.0-12.0) sec INR (<1.2) APTT (22.0-30.0) sec Troponin I 1.220 H* 0.970 H* (0.000-0.034) ng/mL HDL Cholesterol 28 L (40-60) mg/dL 12/07/17 12/07/17 Range/Units 06:25 06:25 PT 18.6 H (9.0-12.0) sec INR 2.1 H (<1.2) APTT 52.8 H (22.0-30.0) sec Troponin I (0.000-0.034) ng/mL HDL Cholesterol (40-60) mg/dL Microbiology - Last 24 Hours (Table) 12/06/17 03:40 Urine Culture - Final Urine,Catheterized Assessment and Plan Assessment: 1. Acute non-STEMI. Troponin is trending down 2. Coronary artery disease status post CABG; as above 3. Ischemic cardiopathy Status post AICD; interrogation 4. Hypertension 5. Hyperlipidemia DVT prophylaxis; SC heparin CODE STATUS; full code Plan: Patient be continued on aspirin and statin and metoprolol. IV heparin has been discontinued. Awaiting 2-D echo report. Otherwise patient is improving clinically, chest pain. cardiology is following. recommended conservative management. further recommendations based on the clinical course. Time with Patient: Greater than 30
--- NOTE | 2017-12-09 17:42 | P.PN ---
Subjective Progress Note Date: 12/08/17 Principal diagnosis: Acute non-ST elevated [place] This is a pleasant 87-year-old gentleman who states that he follows with Dr. HAYDER Gilliland in the office as an outpatient with history of coronary artery disease and status post coronary artery bypass grafting with unknown details about the anatomy and the timing of the surgery at this point, obviously severe cardiomyopathy, status post AICD, hypertension, dyslipidemia presented to the emergency room complaining of chest discomfort. The patient was in his usual state of health when he was at home when he suddenly developed chest discomfort and epigastric discomfort as a sharp kind of discomfort with radiation to the left arm and associated shortness of breath with it. No sweating. No dizziness or lightheadedness. And no syncope. The patient was ruled in for acute coronary syndrome. The EKG showed nonspecific changes but the troponin came in to be elevated and continues to be trending up. He has been pain free since he was admitted to the hospital. Currently he is on heparin IV. Also he is on aspirin. 12/07/2017 Patient denied any complaints of chest discomfort or shortness of breath. Patient did have AICD interrogation this morning. Otherwise blood pressure is slightly low with SBP and 100s. CT chest showed no evidence of pulmonary embolism. 2-D echo was done and report is pending. Aspirin has been discontinued. Patient is being continued on metoprolol and Lanoxin and losartan. Otherwise patient is a poor historian. No fever no chills. No complaints of nausea vomiting or abdominal pain. Discussed with Family at bedside. 12/08/2017 Patient denied any, soft chest pain or shortness of breath. Blood pressure is low and beta dacia dose has been decreased. 2-D echo showed ejection fraction 20%. Patient is being continued on current management and cardiology is following. All other review of systems negative except the above Current medications reviewed. Objective - Vital Signs Vital signs: Vital Signs Temp 99.1 F 12/08/17 20:00 Pulse 91 12/08/17 20:00 Resp 18 12/08/17 20:00 BP 124/65 12/08/17 20:00 Pulse Ox 97 12/08/17 20:00 Intake & Output 12/08/17 12/08/17 12/09/17 06:59 18:59 06:59 Intake Total 360 240 Output Total 650 300 Balance -650 60 240 Weight 72.5 kg Intake: Oral 360 240 Output: Urine 650 300 Other: Voiding Method Indwelling Catheter Indwelling Catheter Indwelling Catheter - Exam PHYSICAL EXAMINATION: Patient is lying in the bed comfortably, no acute distress, awake alert and oriented 1 with underlying dementia.. HEENT: Normocephalic. Neck is supple. Pupils reactive. Nostrils clear. Oral cavity is moist. Ears reveal no drainage. Neck reveals no JVD, carotid bruits, or thyromegaly. CHEST EXAMINATION: Trachea is central. Symmetrical expansion. Lung salter clear to auscultation and percussion. CARDIAC: Normal S1, S2 with no gallops. No murmurs ABDOMEN: Soft. Bowel sounds normal. No organomegaly. No abdominal bruits. Extremities: reveal no edema. No clubbing or cyanosis Neurologically awake, alert, with well-coordinated movements. No focal deficits noted Skin: No rash or skin lesions. Psychiatric: Cooperative. Could not be assessed completely Musculoskeletal: No joint swelling or deformity. Normal range of motion. - Labs CBC & Chem 7: 12/05/17 20:08 12/05/17 20:08 Labs: Abnormal Lab Results - Last 24 Hours (Table) 12/08/17 Range/Units 05:41 PT 16.0 H (9.0-12.0) sec INR 1.7 H (<1.2) Assessment and Plan Assessment: 1. Acute non-STEMI. Troponin is trending down 2. Coronary artery disease with history of CABG and PCI; 3. Ischemic cardiopathy Status post AICD; interrogation . Ejection fraction 20 -20% 4. Hypertension 5. Hyperlipidemia 6. Dementia DVT prophylaxis; SC heparin CODE STATUS; full code Plan: Patient be continued on aspirin and statin and metoprolol. IV heparin has been discontinued. Reviewed 2-D echo report. Otherwise patient is improving clinically, chest pain. cardiology is following. recommended conservative management. further recommendations based on the clinical course. Time with Patient: Greater than 30
--- NOTE | 2017-12-09 17:45 | P.PN ---
Subjective Progress Note Date: 12/09/17 Principal diagnosis: Acute non-ST elevated [place] This is a pleasant 87-year-old gentleman who states that he follows with Dr. HAYDER Gilliland in the office as an outpatient with history of coronary artery disease and status post coronary artery bypass grafting with unknown details about the anatomy and the timing of the surgery at this point, obviously severe cardiomyopathy, status post AICD, hypertension, dyslipidemia presented to the emergency room complaining of chest discomfort. The patient was in his usual state of health when he was at home when he suddenly developed chest discomfort and epigastric discomfort as a sharp kind of discomfort with radiation to the left arm and associated shortness of breath with it. No sweating. No dizziness or lightheadedness. And no syncope. The patient was ruled in for acute coronary syndrome. The EKG showed nonspecific changes but the troponin came in to be elevated and continues to be trending up. He has been pain free since he was admitted to the hospital. Currently he is on heparin IV. Also he is on aspirin. 12/07/2017 Patient denied any complaints of chest discomfort or shortness of breath. Patient did have AICD interrogation this morning. Otherwise blood pressure is slightly low with SBP and 100s. CT chest showed no evidence of pulmonary embolism. 2-D echo was done and report is pending. Aspirin has been discontinued. Patient is being continued on metoprolol and Lanoxin and losartan. Otherwise patient is a poor historian. No fever no chills. No complaints of nausea vomiting or abdominal pain. Discussed with Family at bedside. 12/08/2017 Patient denied any complaints of chest pain or shortness of breath. Blood pressure is low and beta dacia dose has been decreased. 2-D echo showed ejection fraction 20%. Patient is being continued on current management and cardiology is following. 12/09/2017 Patient denied any complains of chest pain or worsening shortness of breath. Otherwise patient is able to ambulate but is desaturating on room air. Blood pressure is fairly controlled today. Otherwise PT OT is following. Coumadin has been restarted. No fever no chills. No cough or sputum production. All other review of systems negative except the above Current medications reviewed. Active Medications Generic Name Dose Route Start Last Admin Trade Name Freq PRN Reason Stop Dose Admin Aspirin 81 mg 12/08/17 09:00 12/09/17 08:40 Aspirin PO 81 mg DAILY MARCIA Administration Atorvastatin Calcium 20 mg 12/06/17 21:00 12/08/17 21:15 Lipitor PO 20 mg HS MARCIA Administration Digoxin 125 mcg 12/07/17 09:00 12/09/17 08:40 Lanoxin PO 125 mcg DAILY MARCIA Administration Latanoprost 1 drops 12/06/17 21:00 12/08/17 21:15 Xalatan 0.005% BOTH EYES 1 drops HS MARCIA Administration Losartan Potassium 25 mg 12/07/17 09:00 12/09/17 12:54 Cozaar PO 25 mg DAILY MARCIA Administration Metoprolol Tartrate 50 mg 12/08/17 09:00 12/09/17 08:40 Lopressor PO 50 mg BID MARCIA Administration Nitroglycerin 0.4 mg 12/06/17 00:09 Nitrostat SUBLINGUAL Q5M PRN Chest Pain Spironolactone 25 mg 12/08/17 14:30 12/09/17 08:40 Aldactone PO 25 mg DAILY MARCIA Administration Warfarin Sodium 5 mg 12/09/17 18:00 12/09/17 17:35 Coumadin PO 12/09/17 18:01 5 mg ONCE@1800 ONE Administration Objective - Vital Signs Vital signs: Vital Signs Temp 98.9 F 12/09/17 16:00 Pulse 106 H 12/09/17 16:05 Resp 22 12/09/17 16:05 BP 111/46 12/09/17 16:05 Pulse Ox 78 L 12/09/17 16:05 Intake & Output 12/08/17 12/09/17 12/09/17 18:59 06:59 18:59 Intake Total 360 300 640 Output Total 300 475 Balance 60 -175 640 Weight 72.5 kg Intake: IV 60 .9 60 Oral 360 240 640 Output: Urine 300 475 Other: Voiding Method Indwelling Catheter Indwelling Catheter - Exam PHYSICAL EXAMINATION: Patient is lying in the bed comfortably, no acute distress, awake alert and oriented 1 with underlying dementia.. HEENT: Normocephalic. Neck is supple. Pupils reactive. Nostrils clear. Oral cavity is moist. Ears reveal no drainage. Neck reveals no JVD, carotid bruits, or thyromegaly. CHEST EXAMINATION: Trachea is central. Symmetrical expansion. Lung salter clear to auscultation and percussion. CARDIAC: Normal S1, S2 with no gallops. No murmurs ABDOMEN: Soft. Bowel sounds normal. No organomegaly. No abdominal bruits. Extremities: reveal no edema. No clubbing or cyanosis Neurologically awake, alert, with well-coordinated movements. No focal deficits noted Skin: No rash or skin lesions. Psychiatric: Cooperative. Could not be assessed completely Musculoskeletal: No joint swelling or deformity. Normal range of motion. - Labs CBC & Chem 7: 12/05/17 20:08 12/05/17 20:08 Labs: Abnormal Lab Results - Last 24 Hours (Table) 12/09/17 Range/Units 10:20 PT 13.6 H (9.0-12.0) sec INR 1.5 H (<1.2) Assessment and Plan Assessment: 1. Acute non-STEMI. Troponin is trending down 2. Coronary artery disease with history of CABG and PCI; 3. Ischemic cardiopathy Status post AICD; interrogation . Ejection fraction 20 -20% 4. Hypertension 5. Hyperlipidemia 6. Dementia 7. Paroxysmal atrial fibrillation on anticoagulation. Coumadin has been restarted. DVT prophylaxis; on Coumadin CODE STATUS; full code Plan: Patient be continued on aspirin and statin and metoprolol. IV heparin has been discontinued. Reviewed 2-D echo report. Coumadin dosing. Otherwise patient is improving clinically. cardiology is following. recommended conservative management. further recommendations based on the clinical course. Time with Patient: Greater than 30
[2017-12-09] MEDS ORDERED: WARFARIN 5 MG TAB PO ONE (18:00)
[2017-12-09] MEDS: LATANOPROST 0.005% OPHTH DROPS 2.5 ML BTL BOTH EYES SCH (21:17)
[2017-12-09] MEDS: ATORVASTATIN 20 MG TAB PO SCH (21:17)
[2017-12-10 06:06] LABS: INR 1.6 (<1.2); Prothrombin Time 14.4 sec (9.0-12.0)
[2017-12-10] MEDS: METOPROLOL TARTRATE 50 MG TAB PO SCH ×2 (07:54→20:26)
[2017-12-10] MEDS: ASPIRIN 81 MG PO SCH (07:54)
[2017-12-10] MEDS: SPIRONOLACTONE 25 MG TAB PO SCH (07:55)
[2017-12-10] MEDS: LOSARTAN 25 MG TAB PO SCH (07:55)
[2017-12-10] MEDS: DIGOXIN 125 MCG TAB PO SCH (07:55)
--- NOTE | 2017-12-10 12:48 | P.PN ---
Subjective Progress Note Date: 12/10/17 This is a pleasant 87-year-old gentleman who follows regularly with Dr. Enrike Gilliland in the office. He has a known history of coronary artery disease with prior bypass surgery, prior PCI's, ischemic cardiomyopathy prior AICD, paroxysmal atrial fibrillation, on Coumadin for anticoagulation, hypertension, hyperlipidemia, who presented to the hospital with symptoms of chest and epigastric discomfort. Patient ruled in for acute coronary syndrome, EKG showed nonspecific changes but troponin came back to be abnormal. Troponins 1.9 , 1.2, 0.9. Since the patient was admitted to the hospital, he has had no further symptoms of chest discomfort. CTA of the chest was performed which did not reveal a pulmonary embolism, it did show small bilateral pleural effusions. Echocardiogram with Doppler study has been performed but is yet pending. Patient was seen and examined this morning, denies any chest discomfort, breathing overall is stable. We did have the AICD. Interrogated this morning, functioning appropriately. Blood pressure this morning 104/50 with a heart rate in the 80s to 90s, afebrile, 95% on room air. INR yesterday 2.3. We will decrease the aspirin 81 mg daily today, discontinue IV heparin. Continue losartan, Lanoxin and metoprolol. 12/08/2017 Patient seen and examined this morning, blood pressure this morning 88/43, heart rate in the 90s, 94% on room air. Patient was on 100 mg of metoprolol twice a day, we'll decrease this to 50 twice a day today. INR is 1.6. We will give the patient 5 mg of Coumadin today, from tomorrow resume home dose of 2 mg daily. 12/09/2017 Patient seen and examined this morning, feeling well overall, eager to get up ambulating. Blood pressure 112/50, heart rate in the 90s. 12/10/2017 Patient seen and examined this morning, blood pressure 122/57 after he received his medications, at noon today blood pressure 86/40. Asymptomatic, not dizzy or lightheaded. PT 14.4, INR 1.6. We will give an additional Coumadin 5 today. Objective - Vital Signs Vital signs: Vital Signs Temp 97.7 F 12/10/17 11:53 Pulse 82 12/10/17 11:53 Resp 18 12/10/17 11:53 BP 86/49 12/10/17 11:53 Pulse Ox 94 L 12/10/17 11:53 Intake & Output 12/09/17 12/10/17 12/10/17 18:59 06:59 18:59 Intake Total 740 180 180 Output Total 1032 Balance 740 -852 180 Weight 61 kg Intake: IV 180 .9 180 Oral 740 180 Output: Urine 600 Straight 600 Post Void Residual 432 Other: Voiding Method Indwelling Catheter Incontinent Incontinent - Exam PHYSICAL EXAMINATION: HEENT: Head is atraumatic, normocephalic. Pupils equal, round. Neck is supple. There is no elevated jugular venous pressure. HEART EXAMINATION: Heart S1, S2 normal. No murmur or gallop heard. CHEST EXAMINATION: Lungs are clear to auscultation and precussion. No chest wall tenderness is noted on palpation or with deep breathing. ABDOMEN: Soft, nontender. Bowel sounds are heard. No organomegaly noted. EXTREMITIES: 2+ peripheral pulses with no evidence of peripheral edema and no calf tenderness noted. NEUROLOGIC patient is awake, alert and oriented -3. . - Labs CBC & Chem 7: 12/05/17 20:08 12/05/17 20:08 Labs: Abnormal Lab Results - Last 24 Hours (Table) 12/10/17 Range/Units 05:36 PT 14.4 H (9.0-12.0) sec INR 1.6 H (<1.2) Assessment and Plan Plan: Assessment and plan #1 non-ST elevation CT, continue maximal medical therapy. #2 known history of coronary artery disease with prior bypass surgery and PCI's. #3 ischemic cardio myopathy status post AICD implant. AICD was interrogated this morning, functioning appropriately. #4 hypertension #5 hyperlipidemia Plan We will continue current medications, we will change the dose time of the Cozaar to noon daily. Arrangements are being made for possible discharge to [facility]. We will make a follow-up appointment on discharge. DNP note has been reviewed, I agree with a documented findings and plan of care. Patient was seen and examined.
[2017-12-10 15:59] LABS: Glucose,Whole Blood 101 mg/dL (75-99)
[2017-12-10] MEDS ORDERED: WARFARIN 5 MG TAB PO ONE (18:00)
[2017-12-10] MEDS: ATORVASTATIN 20 MG TAB PO SCH (20:26)
[2017-12-10] MEDS: LATANOPROST 0.005% OPHTH DROPS 2.5 ML BTL BOTH EYES SCH (20:26)
--- NOTE | 2017-12-10 23:13 | P.PN ---
Subjective Progress Note Date: 12/10/17 Principal diagnosis: Acute non-ST elevated [place] This is a pleasant 87-year-old gentleman who states that he follows with Dr. HAYDER Gilliland in the office as an outpatient with history of coronary artery disease and status post coronary artery bypass grafting with unknown details about the anatomy and the timing of the surgery at this point, obviously severe cardiomyopathy, status post AICD, hypertension, dyslipidemia presented to the emergency room complaining of chest discomfort. The patient was in his usual state of health when he was at home when he suddenly developed chest discomfort and epigastric discomfort as a sharp kind of discomfort with radiation to the left arm and associated shortness of breath with it. No sweating. No dizziness or lightheadedness. And no syncope. The patient was ruled in for acute coronary syndrome. The EKG showed nonspecific changes but the troponin came in to be elevated and continues to be trending up. He has been pain free since he was admitted to the hospital. Currently he is on heparin IV. Also he is on aspirin. 12/07/2017 Patient denied any complaints of chest discomfort or shortness of breath. Patient did have AICD interrogation this morning. Otherwise blood pressure is slightly low with SBP and 100s. CT chest showed no evidence of pulmonary embolism. 2-D echo was done and report is pending. Aspirin has been discontinued. Patient is being continued on metoprolol and Lanoxin and losartan. Otherwise patient is a poor historian. No fever no chills. No complaints of nausea vomiting or abdominal pain. Discussed with Family at bedside. 12/08/2017 Patient denied any complaints of chest pain or shortness of breath. Blood pressure is low and beta dacia dose has been decreased. 2-D echo showed ejection fraction 20%. Patient is being continued on current management and cardiology is following. 12/09/2017 Patient denied any complains of chest pain or worsening shortness of breath. Otherwise patient is able to ambulate but is desaturating on room air. Blood pressure is fairly controlled today. Otherwise PT OT is following. Coumadin has been restarted. No fever no chills. No cough or sputum production. 12/10/2017 Patient denied any complaints of chest pain or shortness of breath. Saturating well with nausea cannula. Blood pressure is stable today. PT OT is following. Patient was given another 5 mg of Coumadin today. No fever no chills. Patient has been retaining urine and was placed back on Escudero catheter. All other review of systems negative except the above Current medications reviewed. Active Medications Generic Name Dose Route Start Last Admin Trade Name Rachel PRN Reason Stop Dose Admin Aspirin 81 mg 12/08/17 09:00 12/09/17 08:40 Aspirin PO 81 mg DAILY MARCIA Administration Atorvastatin Calcium 20 mg 12/06/17 21:00 12/08/17 21:15 Lipitor PO 20 mg HS MARCIA Administration Digoxin 125 mcg 12/07/17 09:00 12/09/17 08:40 Lanoxin PO 125 mcg DAILY MARCIA Administration Latanoprost 1 drops 12/06/17 21:00 12/08/17 21:15 Xalatan 0.005% BOTH EYES 1 drops HS MARCIA Administration Losartan Potassium 25 mg 12/07/17 09:00 12/09/17 12:54 Cozaar PO 25 mg DAILY MARCIA Administration Metoprolol Tartrate 50 mg 12/08/17 09:00 12/09/17 08:40 Lopressor PO 50 mg BID MARCIA Administration Nitroglycerin 0.4 mg 12/06/17 00:09 Nitrostat SUBLINGUAL Q5M PRN Chest Pain Spironolactone 25 mg 12/08/17 14:30 12/09/17 08:40 Aldactone PO 25 mg DAILY MARCIA Administration Warfarin Sodium 5 mg 12/09/17 18:00 12/09/17 17:35 Coumadin PO 12/09/17 18:01 5 mg ONCE@1800 ONE Administration Objective - Vital Signs Vital signs: Vital Signs Temp 97.6 F 12/10/17 17:00 Pulse 111 H 12/10/17 17:00 Resp 18 12/10/17 17:00 BP 126/56 12/10/17 17:00 Pulse Ox 93 L 12/10/17 17:00 Intake & Output 12/09/17 12/10/17 12/10/17 18:59 06:59 18:59 Intake Total 740 180 402 Output Total 1032 400 Balance 740 -852 2 Weight 61 kg Intake: IV 180 .9 180 Oral 740 402 Output: Urine 600 400 Straight 600 Post Void Residual 432 Other: Voiding Method Indwelling Catheter Incontinent Indwelling Catheter # Voids 0 - Exam PHYSICAL EXAMINATION: Patient is lying in the bed comfortably, no acute distress, awake alert and oriented 1 with underlying dementia.. HEENT: Normocephalic. Neck is supple. Pupils reactive. Nostrils clear. Oral cavity is moist. Ears reveal no drainage. Neck reveals no JVD, carotid bruits, or thyromegaly. CHEST EXAMINATION: Trachea is central. Symmetrical expansion. Lung salter clear to auscultation and percussion. CARDIAC: Normal S1, S2 with no gallops. No murmurs ABDOMEN: Soft. Bowel sounds normal. No organomegaly. No abdominal bruits. Extremities: reveal no edema. No clubbing or cyanosis Neurologically awake, alert, with well-coordinated movements. No focal deficits noted Skin: No rash or skin lesions. Psychiatric: Cooperative. Could not be assessed completely Musculoskeletal: No joint swelling or deformity. Normal range of motion. - Labs CBC & Chem 7: 12/05/17 20:08 12/05/17 20:08 Labs: Abnormal Lab Results - Last 24 Hours (Table) 12/10/17 12/10/17 Range/Units 05:36 15:38 PT 14.4 H (9.0-12.0) sec INR 1.6 H (<1.2) POC Glucose (mg/dL) 101 H (75-99) mg/dL Assessment and Plan Assessment: 1. Acute non-STEMI. Troponin is trending down. Continue with medical management as per cardiology. 2. Coronary artery disease with history of CABG and PCI; 3. Ischemic cardiopathy Status post AICD; interrogation . Ejection fraction 20 -20% 4. Hypertension 5. Hyperlipidemia 6. Dementia 7. Paroxysmal atrial fibrillation on anticoagulation. Coumadin has been restarted. DVT prophylaxis; on Coumadin CODE STATUS; full code Plan: Patient be continued on aspirin and statin and metoprolol. IV heparin has been discontinued. Reviewed 2-D echo report. Coumadin dosing. Otherwise patient is improving clinically. cardiology is following. recommended conservative management. further recommendations based on the clinical course. Time with Patient: Greater than 30
[2017-12-11] MEDS: SPIRONOLACTONE 25 MG TAB PO SCH (08:02)
[2017-12-11] MEDS: METOPROLOL TARTRATE 50 MG TAB PO SCH ×2 (08:02→21:43)
[2017-12-11] MEDS: ASPIRIN 81 MG PO SCH (08:02)
[2017-12-11] MEDS: DIGOXIN 125 MCG TAB PO SCH (08:02)
[2017-12-11 11:30] LABS: Calcium 8.2 mg/dL (8.4-10.2); Potassium 4.4 mmol/L (3.5-5.1)
[2017-12-11 11:40] LABS: Anisocytosis Slight; HCT 21.9 % (39.0-53.0); Hypochromasia Slight; MCH 32.7 pg (25.0-35.0); MCHC 32.8 g/dL (31.0-37.0); MCV 99.6 fL (80.0-100.0); Macrocytosis Slight; Mean Platelet Volume 13.4; Poikilocytosis Slight; RDW 18.7 % (11.5-15.5); WBC 2.3 k/uL (3.8-10.6)
[2017-12-11 11:41] LABS: HGB 7.2 gm/dL (13.0-17.5)
[2017-12-11] MEDS: LOSARTAN 25 MG TAB PO SCH (12:01)
[2017-12-11 12:26] LABS: Lymphocytes # (M) 0.25 k/uL (1.0-4.8); Monocytes # (M) 0.07 k/uL (0-1.0); Neutrophils # (M) 1.98 k/uL (1.3-7.7); Neutrophils % (M) 86 %; Nucleated Red Blood Cells 0 /100 WBC (0-0); Total Cells Counted 100
[2017-12-11 12:27] LABS: Ovalocytes Present; RBC Fragments Present
[2017-12-11 12:28] LABS: Large Platelets Present; Platelet Count 80 k/uL (150-450); Spherocytes Present
[2017-12-11] MEDS: DOCUSATE 100 MG CAP PO SCH ×2 (16:37→21:43)
[2017-12-11 19:34] LABS: Appearance,Urine Turbid (Clear); Bacteria,Urine Many /hpf; Bilirubin,Urine Negative (Negative); Blood,Urine Trace (Negative); Color,Urine Light Red; Glucose,Urine (UA) Negative (Negative); Ketones,Urine Negative (Negative); Leukocyte Esterase,Urine Large (Negative); Mucus,Urine Many /hpf; Nitrite,Urine Positive (Negative); PH, Urine 8.5 (5.0-8.0); Protein,Urine 4+ (Negative); RBC,Urine 182 /hpf (0-5); Triple Phosphate Crystal,Urine Few /hpf; WBC,Urine 51 /hpf (0-5)
[2017-12-11 20:02] LABS: INR 2.2 (<1.2); Prothrombin Time 20.1 sec (9.0-12.0)
[2017-12-11] MEDS ORDERED: WARFARIN 3 MG TAB PO ONE ×2 (20:45→21:00)
[2017-12-11] MEDS: ATORVASTATIN 20 MG TAB PO SCH (21:43)
[2017-12-11] MEDS: LATANOPROST 0.005% OPHTH DROPS 2.5 ML BTL BOTH EYES SCH (21:44)
[2017-12-11] MEDS: cefTRIAXone IN SWFI 1,000 MG/10 ML SYRINGE IVP SCH (22:35)
[2017-12-12 06:36] LABS: Anisocytosis Slight; HCT 22.5 % (39.0-53.0); HGB 7.1 gm/dL (13.0-17.5); Hypochromasia Moderate; MCH 31.5 pg (25.0-35.0); MCHC 31.4 g/dL (31.0-37.0); MCV 100.1 fL (80.0-100.0); Macrocytosis Slight; Mean Platelet Volume 15.3; Poikilocytosis Slight; RBC 2.24 m/uL (4.30-5.90); WBC 2.2 k/uL (3.8-10.6)
[2017-12-12 06:40] LABS: INR 2.6 (<1.2); Prothrombin Time 23.2 sec (9.0-12.0)
[2017-12-12 06:46] LABS: Anion Gap 8 mmol/L; Blood Urea Nitrogen 21 mg/dL (9-20); Carbon Dioxide 27 mmol/L (22-30); Chloride 102 mmol/L (98-107); Glucose 86 mg/dL (74-99); Sodium 137 mmol/L (137-145)
[2017-12-12 06:53] LABS: Platelet Count 75 k/uL (150-450)
[2017-12-12 07:10] LABS: Large Platelets Present; Lymphocytes # (M) 0.22 k/uL (1.0-4.8); Monocytes # (M) 0.07 k/uL (0-1.0); Neutrophils # (M) 1.91 k/uL (1.3-7.7); Neutrophils % (M) 87 %; Nucleated Red Blood Cells 0 /100 WBC (0-0); Total Cells Counted 100
[2017-12-12 07:11] LABS: Ovalocytes Present; RBC Fragments Present
[2017-12-12 07:12] LABS: Target Cells Present
[2017-12-12] MEDS: METOPROLOL TARTRATE 50 MG TAB PO SCH (08:06)
[2017-12-12] MEDS: DOCUSATE 100 MG CAP PO SCH ×2 (08:06→19:31)
[2017-12-12] MEDS: DIGOXIN 125 MCG TAB PO SCH (08:06)
[2017-12-12] MEDS: SPIRONOLACTONE 25 MG TAB PO SCH (08:06)
[2017-12-12] MEDS: ASPIRIN 81 MG PO SCH (08:06)
[2017-12-12] MEDS: cefTRIAXone IN SWFI 1,000 MG/10 ML SYRINGE IVP SCH (11:21)
[2017-12-12] MEDS: LOSARTAN 25 MG TAB PO SCH (11:27)
--- NOTE | 2017-12-12 13:59 | P.PN ---
Subjective Progress Note Date: 12/12/17 This is a pleasant 87-year-old gentleman who follows regularly with Dr. Enrike Gilliland in the office. He has a known history of coronary artery disease with prior bypass surgery, prior PCI's, ischemic cardiomyopathy prior AICD, paroxysmal atrial fibrillation, on Coumadin for anticoagulation, hypertension, hyperlipidemia, who presented to the hospital with symptoms of chest and epigastric discomfort. Patient ruled in for acute coronary syndrome, EKG showed nonspecific changes but troponin came back to be abnormal. Troponins 1.9 , 1.2, 0.9. Since the patient was admitted to the hospital, he has had no further symptoms of chest discomfort. CTA of the chest was performed which did not reveal a pulmonary embolism, it did show small bilateral pleural effusions. Echocardiogram with Doppler study has been performed but is yet pending. Patient was seen and examined this morning, denies any chest discomfort, breathing overall is stable. We did have the AICD. Interrogated this morning, functioning appropriately. Blood pressure this morning 104/50 with a heart rate in the 80s to 90s, afebrile, 95% on room air. INR yesterday 2.3. We will decrease the aspirin 81 mg daily today, discontinue IV heparin. Continue losartan, Lanoxin and metoprolol. 12/08/2017 Patient seen and examined this morning, blood pressure this morning 88/43, heart rate in the 90s, 94% on room air. Patient was on 100 mg of metoprolol twice a day, we'll decrease this to 50 twice a day today. INR is 1.6. We will give the patient 5 mg of Coumadin today, from tomorrow resume home dose of 2 mg daily. 12/09/2017 Patient seen and examined this morning, feeling well overall, eager to get up ambulating. Blood pressure 112/50, heart rate in the 90s. 12/10/2017 Patient seen and examined this morning, blood pressure 122/57 after he received his medications, at noon today blood pressure 86/40. Asymptomatic, not dizzy or lightheaded. PT 14.4, INR 1.6. We will give an additional Coumadin 5 today. 09/13/2017 Patient was seen and examined this morning, had significant drop in blood pressure orthostatically. Hemoglobin down to 7.1 today. INR 2.6. Coumadin is currently on hold. We will decrease the dose of beta dacia and angiotensin dacia. Continue his other medications. Patient may require blood transfusion. We will continue to follow. Objective - Vital Signs Vital signs: Vital Signs Temp 97.0 F L 12/12/17 11:24 Pulse 82 12/12/17 11:36 Resp 18 12/12/17 11:24 BP 98/54 12/12/17 11:24 Pulse Ox 95 12/12/17 11:24 Intake & Output 12/11/17 12/12/17 12/12/17 18:59 06:59 18:59 Intake Total 582 60 Output Total 1200 450 Balance -618 -450 60 Weight 72.5 kg 72.5 kg Intake: Oral 582 60 Output: Urine 1200 450 Other: Voiding Method Indwelling Catheter Indwelling Catheter Indwelling Catheter # Bowel Movements 1 - Exam PHYSICAL EXAMINATION: HEENT: Head is atraumatic, normocephalic. Pupils equal, round. Neck is supple. There is no elevated jugular venous pressure. HEART EXAMINATION: Heart S1, S2 normal. No murmur or gallop heard. CHEST EXAMINATION: Lungs are clear to auscultation and precussion. No chest wall tenderness is noted on palpation or with deep breathing. ABDOMEN: Soft, nontender. Bowel sounds are heard. No organomegaly noted. EXTREMITIES: 2+ peripheral pulses with no evidence of peripheral edema and no calf tenderness noted. NEUROLOGIC patient is awake, alert and oriented -3. . - Labs CBC & Chem 7: 12/12/17 06:09 12/12/17 06:09 Labs: Abnormal Lab Results - Last 24 Hours (Table) 12/11/17 12/11/17 12/12/17 Range/Units 17:00 19:38 06:09 WBC (3.8-10.6) k/uL RBC (4.30-5.90) m/uL Hgb (13.0-17.5) gm/dL Hct (39.0-53.0) % MCV (80.0-100.0) fL RDW (11.5-15.5) % Plt Count (150-450) k/uL Lymphocytes # (Manual) (1.0-4.8) k/uL PT 20.1 H 23.2 H (9.0-12.0) sec INR 2.2 H 2.6 H (<1.2) BUN (9-20) mg/dL Calcium (8.4-10.2) mg/dL Urine pH 8.5 H (5.0-8.0) Urine Protein 4+ H (Negative) Urine Blood Trace H (Negative) Ur Leukocyte Esterase Large H (Negative) Urine RBC 182 H (0-5) /hpf Urine WBC 51 H (0-5) /hpf Triple Phos Crystals Few H (None) /hpf Urine Bacteria Many H (None) /hpf Urine Mucus Many H (None) /hpf 12/12/17 12/12/17 Range/Units 06:09 06:09 WBC 2.2 L (3.8-10.6) k/uL RBC 2.24 L (4.30-5.90) m/uL Hgb 7.1 L (13.0-17.5) gm/dL Hct 22.5 L (39.0-53.0) % MCV 100.1 H (80.0-100.0) fL RDW 19.0 H (11.5-15.5) % Plt Count 75 L (150-450) k/uL Lymphocytes # (Manual) 0.22 L (1.0-4.8) k/uL PT (9.0-12.0) sec INR (<1.2) BUN 21 H (9-20) mg/dL Calcium 8.0 L (8.4-10.2) mg/dL Urine pH (5.0-8.0) Urine Protein (Negative) Urine Blood (Negative) Ur Leukocyte Esterase (Negative) Urine RBC (0-5) /hpf Urine WBC (0-5) /hpf Triple Phos Crystals (None) /hpf Urine Bacteria (None) /hpf Urine Mucus (None) /hpf Microbiology - Last 24 Hours (Table) 12/12/17 01:53 Urine Culture - Preliminary Urine,Catheterized Assessment and Plan Plan: Assessment and plan #1 non-ST elevation NE, continue maximal medical therapy. #2 known history of coronary artery disease with prior bypass surgery and PCI's. #3 ischemic cardio myopathy status post AICD implant. AICD was interrogated this morning, functioning appropriately. #4 hypertension #5 hyperlipidemia #6 anemia with evidence of melena stool Plan Coumadin is currently on hold because of the anemia and black stool this morning. We will decrease the dose of beta dacia to 25 mg twice a day, decrease Cozaar to 12-1/2 mg daily. Continue to monitor blood pressure and heart rate. DNP note has been reviewed, I agree with a documented findings and plan of care. Patient was seen and examined.
[2017-12-12] MEDS: ATORVASTATIN 20 MG TAB PO SCH (19:31)
[2017-12-12] MEDS: LATANOPROST 0.005% OPHTH DROPS 2.5 ML BTL BOTH EYES SCH (19:31)
[2017-12-12] MEDS: METOPROLOL TARTRATE 25 MG TAB PO SCH (19:32)
[2017-12-12 20:58] LABS: Glucose,Whole Blood 100 mg/dL (75-99)
--- NOTE | 2017-12-13 00:11 | P.PN ---
Subjective Progress Note Date: 12/11/17 Principal diagnosis: Acute non-ST elevated [place] This is a pleasant 87-year-old gentleman who states that he follows with Dr. HAYDER Gilliland in the office as an outpatient with history of coronary artery disease and status post coronary artery bypass grafting with unknown details about the anatomy and the timing of the surgery at this point, obviously severe cardiomyopathy, status post AICD, hypertension, dyslipidemia presented to the emergency room complaining of chest discomfort. The patient was in his usual state of health when he was at home when he suddenly developed chest discomfort and epigastric discomfort as a sharp kind of discomfort with radiation to the left arm and associated shortness of breath with it. No sweating. No dizziness or lightheadedness. And no syncope. The patient was ruled in for acute coronary syndrome. The EKG showed nonspecific changes but the troponin came in to be elevated and continues to be trending up. He has been pain free since he was admitted to the hospital. Currently he is on heparin IV. Also he is on aspirin. 12/07/2017 Patient denied any complaints of chest discomfort or shortness of breath. Patient did have AICD interrogation this morning. Otherwise blood pressure is slightly low with SBP and 100s. CT chest showed no evidence of pulmonary embolism. 2-D echo was done and report is pending. Aspirin has been discontinued. Patient is being continued on metoprolol and Lanoxin and losartan. Otherwise patient is a poor historian. No fever no chills. No complaints of nausea vomiting or abdominal pain. Discussed with Family at bedside. 12/08/2017 Patient denied any complaints of chest pain or shortness of breath. Blood pressure is low and beta dacia dose has been decreased. 2-D echo showed ejection fraction 20%. Patient is being continued on current management and cardiology is following. 12/09/2017 Patient denied any complains of chest pain or worsening shortness of breath. Otherwise patient is able to ambulate but is desaturating on room air. Blood pressure is fairly controlled today. Otherwise PT OT is following. Coumadin has been restarted. No fever no chills. No cough or sputum production. 12/10/2017 Patient denied any complaints of chest pain or shortness of breath. Saturating well with nausea cannula. Blood pressure is stable today. PT OT is following. Patient was given another 5 mg of Coumadin today. No fever no chills. Patient has been retaining urine and was placed back on Escudero catheter. 12/11/2017 Patient still feels dizzy with walking. Otherwise patient was having chills morning and 40 have urinary tract infection. Patient was started on antibiotics and urine culture was ordered. Otherwise patient is being continued on Coumadin. Patient is also on Escudero catheter. Started on Colace 100 mg twice a day for constipation. Patient is awake cardiology. All other review of systems negative except the above Current medications reviewed. Active Medications Generic Name Dose Route Start Last Admin Trade Name Freq PRN Reason Stop Dose Admin Aspirin 81 mg 12/08/17 09:00 12/09/17 08:40 Aspirin PO 81 mg DAILY MARCIA Administration Atorvastatin Calcium 20 mg 12/06/17 21:00 12/08/17 21:15 Lipitor PO 20 mg HS MARCIA Administration Digoxin 125 mcg 12/07/17 09:00 12/09/17 08:40 Lanoxin PO 125 mcg DAILY MARCIA Administration Latanoprost 1 drops 12/06/17 21:00 12/08/17 21:15 Xalatan 0.005% BOTH EYES 1 drops HS MARCIA Administration Losartan Potassium 25 mg 12/07/17 09:00 12/09/17 12:54 Cozaar PO 25 mg DAILY MARCIA Administration Metoprolol Tartrate 50 mg 12/08/17 09:00 12/09/17 08:40 Lopressor PO 50 mg BID MARCIA Administration Nitroglycerin 0.4 mg 12/06/17 00:09 Nitrostat SUBLINGUAL Q5M PRN Chest Pain Spironolactone 25 mg 12/08/17 14:30 12/09/17 08:40 Aldactone PO 25 mg DAILY MARCIA Administration Warfarin Sodium 5 mg 12/09/17 18:00 12/09/17 17:35 Coumadin PO 12/09/17 18:01 5 mg ONCE@1800 ONE Administration Objective - Vital Signs Vital signs: Vital Signs Temp 97.2 F L 12/11/17 20:00 Pulse 94 12/11/17 20:00 Resp 16 12/11/17 20:00 BP 102/50 12/11/17 20:00 Pulse Ox 94 L 12/11/17 20:00 Intake & Output 12/11/17 12/11/17 12/12/17 06:59 18:59 06:59 Intake Total 582 Output Total 375 1200 Balance -375 -618 Weight 72 kg Intake: Oral 582 Output: Urine 375 1200 Other: Voiding Method Indwelling Catheter Indwelling Catheter # Voids 1 - Exam PHYSICAL EXAMINATION: Patient is lying in the bed comfortably, no acute distress, awake alert and oriented 1 with underlying dementia.. HEENT: Normocephalic. Neck is supple. Pupils reactive. Nostrils clear. Oral cavity is moist. Ears reveal no drainage. Neck reveals no JVD, carotid bruits, or thyromegaly. CHEST EXAMINATION: Trachea is central. Symmetrical expansion. Lung salter clear to auscultation and percussion. CARDIAC: Normal S1, S2 with no gallops. No murmurs ABDOMEN: Soft. Bowel sounds normal. No organomegaly. No abdominal bruits. Extremities: reveal no edema. No clubbing or cyanosis Neurologically awake, alert, with well-coordinated movements. No focal deficits noted Skin: No rash or skin lesions. Psychiatric: Cooperative. Could not be assessed completely Musculoskeletal: No joint swelling or deformity. Normal range of motion. - Labs CBC & Chem 7: 12/12/17 06:09 12/12/17 06:09 Labs: Abnormal Lab Results - Last 24 Hours (Table) 12/11/17 12/11/17 12/11/17 Range/Units 10:53 10:53 17:00 WBC 2.3 L (3.8-10.6) k/uL RBC 2.20 L (4.30-5.90) m/uL Hgb 7.2 L D (13.0-17.5) gm/dL Hct 21.9 L (39.0-53.0) % RDW 18.7 H (11.5-15.5) % Plt Count 80 L (150-450) k/uL Lymphocytes # (Manual) 0.25 L (1.0-4.8) k/uL PT (9.0-12.0) sec INR (<1.2) BUN 22 H (9-20) mg/dL Glucose 107 H (74-99) mg/dL Calcium 8.2 L (8.4-10.2) mg/dL Urine pH 8.5 H (5.0-8.0) Urine Protein 4+ H (Negative) Urine Blood Trace H (Negative) Ur Leukocyte Esterase Large H (Negative) Urine RBC 182 H (0-5) /hpf Urine WBC 51 H (0-5) /hpf Triple Phos Crystals Few H (None) /hpf Urine Bacteria Many H (None) /hpf Urine Mucus Many H (None) /hpf 12/11/17 Range/Units 19:38 WBC (3.8-10.6) k/uL RBC (4.30-5.90) m/uL Hgb (13.0-17.5) gm/dL Hct (39.0-53.0) % RDW (11.5-15.5) % Plt Count (150-450) k/uL Lymphocytes # (Manual) (1.0-4.8) k/uL PT 20.1 H (9.0-12.0) sec INR 2.2 H (<1.2) BUN (9-20) mg/dL Glucose (74-99) mg/dL Calcium (8.4-10.2) mg/dL Urine pH (5.0-8.0) Urine Protein (Negative) Urine Blood (Negative) Ur Leukocyte Esterase (Negative) Urine RBC (0-5) /hpf Urine WBC (0-5) /hpf Triple Phos Crystals (None) /hpf Urine Bacteria (None) /hpf Urine Mucus (None) /hpf Assessment and Plan Assessment: 1. Acute non-STEMI. Troponin is trending down. Continue with medical management as per cardiology. 2. Urinary retention. Status post Escudero cath placement 2. Acute urinary tract infection. Possible cath related 2. Coronary artery disease with history of CABG and PCI; 3. Ischemic cardiopathy Status post AICD; interrogation . Ejection fraction 20 -20% 4. Hypertension 5. Hyperlipidemia 6. Dementia 7. Paroxysmal atrial fibrillation on anticoagulation. Coumadin has been restarted. DVT prophylaxis; on Coumadin CODE STATUS; full code Plan: Patient be continued on aspirin and statin and metoprolol. IV heparin has been discontinued. Reviewed 2-D echo report. Coumadin dosing. Otherwise patient is improving clinically. cardiology is following. recommended conservative management. further recommendations based on the clinical course. Time with Patient: Greater than 30
--- NOTE | 2017-12-13 00:31 | P.PN ---
Subjective Progress Note Date: 12/12/17 Principal diagnosis: Acute non-ST elevated [place] This is a pleasant 87-year-old gentleman who states that he follows with Dr. HAYDER Gilliland in the office as an outpatient with history of coronary artery disease and status post coronary artery bypass grafting with unknown details about the anatomy and the timing of the surgery at this point, obviously severe cardiomyopathy, status post AICD, hypertension, dyslipidemia presented to the emergency room complaining of chest discomfort. The patient was in his usual state of health when he was at home when he suddenly developed chest discomfort and epigastric discomfort as a sharp kind of discomfort with radiation to the left arm and associated shortness of breath with it. No sweating. No dizziness or lightheadedness. And no syncope. The patient was ruled in for acute coronary syndrome. The EKG showed nonspecific changes but the troponin came in to be elevated and continues to be trending up. He has been pain free since he was admitted to the hospital. Currently he is on heparin IV. Also he is on aspirin. 12/07/2017 Patient denied any complaints of chest discomfort or shortness of breath. Patient did have AICD interrogation this morning. Otherwise blood pressure is slightly low with SBP and 100s. CT chest showed no evidence of pulmonary embolism. 2-D echo was done and report is pending. Aspirin has been discontinued. Patient is being continued on metoprolol and Lanoxin and losartan. Otherwise patient is a poor historian. No fever no chills. No complaints of nausea vomiting or abdominal pain. Discussed with Family at bedside. 12/08/2017 Patient denied any complaints of chest pain or shortness of breath. Blood pressure is low and beta dacia dose has been decreased. 2-D echo showed ejection fraction 20%. Patient is being continued on current management and cardiology is following. 12/09/2017 Patient denied any complains of chest pain or worsening shortness of breath. Otherwise patient is able to ambulate but is desaturating on room air. Blood pressure is fairly controlled today. Otherwise PT OT is following. Coumadin has been restarted. No fever no chills. No cough or sputum production. 12/10/2017 Patient denied any complaints of chest pain or shortness of breath. Saturating well with nausea cannula. Blood pressure is stable today. PT OT is following. Patient was given another 5 mg of Coumadin today. No fever no chills. Patient has been retaining urine and was placed back on Escudero catheter. 12/11/2017 Patient still feels dizzy with walking. Otherwise patient was having chills morning and 40 have urinary tract infection. Patient was started on antibiotics and urine culture was ordered. Otherwise patient is being continued on Coumadin. Patient is also on Escudero catheter. Started on Colace 100 mg twice a day for constipation. Patient is awake cardiology. 12/12/2017 Patient denied any complaints of chest pain or worsening shortness of breath.. Patient did have dark-colored stool today and was also hemoglobin dropped to 7.1. Initial hemoglobin on admission was 8.9. GI was consulted for further evaluation and Coumadin has been held today. Otherwise patient will be continued on current medications and antibiotics. Cardiology is following. All other review of systems negative except the above Current medications reviewed. Active Medications Generic Name Dose Route Start Last Admin Trade Name Freq PRN Reason Stop Dose Admin Aspirin 81 mg 12/08/17 09:00 12/09/17 08:40 Aspirin PO 81 mg DAILY MARCIA Administration Atorvastatin Calcium 20 mg 12/06/17 21:00 12/08/17 21:15 Lipitor PO 20 mg HS MARCIA Administration Digoxin 125 mcg 12/07/17 09:00 12/09/17 08:40 Lanoxin PO 125 mcg DAILY MARCIA Administration Latanoprost 1 drops 12/06/17 21:00 12/08/17 21:15 Xalatan 0.005% BOTH EYES 1 drops HS MARCIA Administration Losartan Potassium 25 mg 12/07/17 09:00 12/09/17 12:54 Cozaar PO 25 mg DAILY MARCIA Administration Metoprolol Tartrate 50 mg 12/08/17 09:00 12/09/17 08:40 Lopressor PO 50 mg BID MARCIA Administration Nitroglycerin 0.4 mg 12/06/17 00:09 Nitrostat SUBLINGUAL Q5M PRN Chest Pain Spironolactone 25 mg 12/08/17 14:30 12/09/17 08:40 Aldactone PO 25 mg DAILY MARCIA Administration Warfarin Sodium 5 mg 12/09/17 18:00 12/09/17 17:35 Coumadin PO 12/09/17 18:01 5 mg ONCE@1800 ONE Administration Objective - Vital Signs Vital signs: Vital Signs Temp 98.1 F 12/12/17 20:00 Pulse 99 12/12/17 20:00 Resp 20 12/12/17 20:00 BP 106/51 12/12/17 20:00 Pulse Ox 93 L 12/12/17 20:00 Intake & Output 12/12/17 12/12/17 12/13/17 06:59 18:59 06:59 Intake Total 780 Output Total 450 425 200 Balance -450 355 -200 Weight 72.5 kg 72.5 kg Intake: Oral 780 Output: Urine 450 425 200 Other: Voiding Method Indwelling Catheter Indwelling Catheter Indwelling Catheter # Voids 1 # Bowel Movements 1 - Exam PHYSICAL EXAMINATION: Patient is lying in the bed comfortably, no acute distress, awake alert and oriented 1 with underlying dementia.. HEENT: Normocephalic. Neck is supple. Pupils reactive. Nostrils clear. Oral cavity is moist. Ears reveal no drainage. Neck reveals no JVD, carotid bruits, or thyromegaly. CHEST EXAMINATION: Trachea is central. Symmetrical expansion. Lung salter clear to auscultation and percussion. CARDIAC: Normal S1, S2 with no gallops. No murmurs ABDOMEN: Soft. Bowel sounds normal. No organomegaly. No abdominal bruits. Extremities: reveal no edema. No clubbing or cyanosis Neurologically awake, alert, with well-coordinated movements. No focal deficits noted Skin: No rash or skin lesions. Psychiatric: Cooperative. Could not be assessed completely Musculoskeletal: No joint swelling or deformity. Normal range of motion. - Labs CBC & Chem 7: 12/12/17 06:09 12/12/17 06:09 Labs: Abnormal Lab Results - Last 24 Hours (Table) 12/12/17 12/12/17 12/12/17 Range/Units 06:09 06:09 06:09 WBC 2.2 L (3.8-10.6) k/uL RBC 2.24 L (4.30-5.90) m/uL Hgb 7.1 L (13.0-17.5) gm/dL Hct 22.5 L (39.0-53.0) % MCV 100.1 H (80.0-100.0) fL RDW 19.0 H (11.5-15.5) % Plt Count 75 L (150-450) k/uL Lymphocytes # (Manual) 0.22 L (1.0-4.8) k/uL PT 23.2 H (9.0-12.0) sec INR 2.6 H (<1.2) BUN 21 H (9-20) mg/dL POC Glucose (mg/dL) (75-99) mg/dL Calcium 8.0 L (8.4-10.2) mg/dL 12/12/17 Range/Units 20:35 WBC (3.8-10.6) k/uL RBC (4.30-5.90) m/uL Hgb (13.0-17.5) gm/dL Hct (39.0-53.0) % MCV (80.0-100.0) fL RDW (11.5-15.5) % Plt Count (150-450) k/uL Lymphocytes # (Manual) (1.0-4.8) k/uL PT (9.0-12.0) sec INR (<1.2) BUN (9-20) mg/dL POC Glucose (mg/dL) 100 H (75-99) mg/dL Calcium (8.4-10.2) mg/dL Microbiology - Last 24 Hours (Table) 12/12/17 01:53 Urine Culture - Preliminary Urine,Catheterized Assessment and Plan Assessment: 1. Acute non-STEMI. Troponin is trending down. Continue with medical management as per cardiology. 2. Dark-colored stools. Possible GI bleed. Hemoglobin dropped from 8.9 on admission -7.1 2. Urinary retention. Status post Escudero cath placement 2. Acute urinary tract infection. Possible cath related 2. Coronary artery disease with history of CABG and PCI; 3. Ischemic cardiopathy Status post AICD; interrogation . Ejection fraction 20 -20% 4. Hypertension 5. Hyperlipidemia 6. Dementia 7. Paroxysmal atrial fibrillation on anticoagulation. Coumadin has been restarted. DVT prophylaxis; on Coumadin CODE STATUS; full code Plan: Patient be continued on aspirin and statin and metoprolol. IV heparin has been discontinued. Reviewed 2-D echo report. cardiology is following. recommended conservative management. GI consult. further recommendations based on the clinical course. Prognosis is guarded with multiple medical problems and comorbid conditions. Time with Patient: Greater than 30
[2017-12-13] MEDS: PANTOPRAZOLE 40 MG/10 ML VIAL IVP SCH ×3 (02:16→07:57)
[2017-12-13 06:27] LABS: Glucose,Whole Blood 85 mg/dL (75-99)
[2017-12-13 06:40] LABS: Anisocytosis Slight; HCT 20.7 % (39.0-53.0); Hypochromasia Moderate; MCH 32.6 pg (25.0-35.0); MCHC 32.6 g/dL (31.0-37.0); MCV 99.9 fL (80.0-100.0); Macrocytosis Slight; Mean Platelet Volume 14.3; Platelet Count 64 k/uL (150-450); Poikilocytosis Slight; RBC 2.08 m/uL (4.30-5.90); RDW 19.4 % (11.5-15.5)
[2017-12-13 06:47] LABS: Anion Gap 8 mmol/L; Blood Urea Nitrogen 19 mg/dL (9-20); Calcium 7.8 mg/dL (8.4-10.2); Carbon Dioxide 27 mmol/L (22-30); Chloride 102 mmol/L (98-107); Glucose 81 mg/dL (74-99); Potassium 3.8 mmol/L (3.5-5.1); Sodium 137 mmol/L (137-145)
[2017-12-13 07:07] LABS: HGB 6.8 gm/dL (13.0-17.5); WBC 1.3 k/uL (3.8-10.6)
[2017-12-13] MEDS: DIGOXIN 125 MCG TAB PO SCH (07:56)
[2017-12-13] MEDS: DOCUSATE 100 MG CAP PO SCH ×2 (07:56→19:36)
[2017-12-13] MEDS: ASPIRIN 81 MG PO SCH (07:56)
[2017-12-13] MEDS: LOSARTAN 25 MG TAB PO SCH (07:56)
[2017-12-13] MEDS: METOPROLOL TARTRATE 25 MG TAB PO SCH ×2 (07:56→19:35)
[2017-12-13] MEDS: SPIRONOLACTONE 25 MG TAB PO SCH (07:57)
[2017-12-13] MEDS: cefTRIAXone IN SWFI 1,000 MG/10 ML SYRINGE IVP SCH (08:04)
[2017-12-13 08:40] LABS: Eosinophils # (M) 0.01 k/uL (0-0.7); Lymphocytes # (M) 0.27 k/uL (1.0-4.8); Monocytes # (M) 0.08 k/uL (0-1.0); Neutrophils # (M) 0.94 k/uL (1.3-7.7); Neutrophils % (M) 72 %; Nucleated Red Blood Cells 0 /100 WBC (0-0); Total Cells Counted 100
[2017-12-13 08:42] LABS: Large Platelets Present; RBC Fragments Present
[2017-12-13 08:43] LABS: Spherocytes Present
--- NOTE | 2017-12-13 10:48 | PN ---
PROGRESS NOTE DATE OF SERVICE: 12/13/2017. HISTORY: Mr. Bernstein is an 87-year-old male who presented to the hospital with mild elevation of his troponin and episode of chest discomfort. He has a known history of severe ischemic cardiomyopathy, status post bypass grafting, paroxysmal atrial fibrillation, who has been anticoagulated in the past. He was feeling weak and tired yesterday when he got up and walked. He is better today, but he is feeling weak. He denies any symptoms of chest pain. He denies any dizziness or palpitations. He denies any nausea. He continues to be on aspirin 81 mg daily, Lipitor 20 mg daily, digoxin 0.125 mg daily, losartan 12.5 mg daily, metoprolol tartrate 25 mg twice a day, spironolactone 25 mg daily. PHYSICAL EXAMINATION: Blood pressure 118/60 with a heart rate in the 60s to 70s. LUNGS: Clear. HEART: Irregular regular S1, S2. No S3. With a systolic murmur, no diastolic murmur. ABDOMEN: Soft, nontender. EXTREMITIES: No edema. LAB DATA: Revealed a white blood cell count of 1.3, hemoglobin 6.8, and platelet count down to 64,000. BUN creatinine 19 and 0.6, potassium 3.8. IMPRESSION: 1. Pancytopenia of unclear etiology. 2. Probable non ST-segment elevation myocardial infarction. 3. History of severe ischemic cardiomyopathy. 4. Prior history of hypertension. 5. History of hyperlipidemia. RECOMMENDATIONS: From the cardiac standpoint, I will hold the aspirin because of the drop of his platelet count and the pancytopenia. Patient may benefit from hematological evaluation. Unfortunately, the prognosis is quite guarded. At this time his anticoagulation has been on hold. We will follow his heart rate and depending on that, further recommendation and adjustment of his medical regimen will be made. MMODL / IJN: [id number] /
[2017-12-13] MEDS: SODIUM CHLORIDE 0.9% 1,000 ML IV SCH ×2 (11:13→21:21)
--- NOTE | 2017-12-13 19:00 | CONS ---
CONSULTATION DATE OF CONSULTATION: 12/13/2017. REASON FOR CONSULTATION: 1. Leukopenia. 2. Urinary tract infection. HISTORY OF PRESENT ILLNESS: The patient is an 87-year-old male who presented to this hospital about a week ago on 12/05/2017 for evaluation of chest pain, epigastric pain and pain in the right lower quadrant area. The patient did not have any fever or any cough or any other symptoms. The patient did have a CT angiogram that was negative for PE, CHF exacerbation, moderate underlying emphysematous changes with retronodular lingular infiltrate. Correlate for pneumonia. The patient also had a CT of abdomen and pelvis done which shows no bowel obstruction. No significant acute finding. Also had an ultrasound of the gallbladder, possible postcholecystectomy changes, or obstructing right renal calculus. The patient has been afebrile throughout his hospital stay. The patient did have a normal white count of 4.1 on admission. However, a few days later on the , he noticed to have his white count down to 2.3, 2.2 with 1.3 this morning that prompted this infectious disease consultation. The patient also noticed subsequent drop in hemoglobin to 6.8 with INR of 2.6. The patient did have a UA on 12/06 that was negative. Repeat urine of is showing a large leukocyte esterase with 1-2 WBC. Urine currently showing gram-negative bacilli. He was started on Rocephin on the . Patient at this time complaining of feeling slightly weak and tired, but denies having any headache. Denies having any chest pain, shortness of breath or cough. No abdominal pain or any diarrhea. REVIEW OF SYSTEMS: Constitutional: Positive for weakness. No fever. Eyes: No complaint. ENT no complaint. Respiratory as per HPI. Cardiovascular: No complaint. Genitourinary: As per HPI. Gastrointestinal: As per HPI. MUSCULOSKELETAL: No complaint. INTEGUMENTARY: No complaint. Psychological: No complaint. Endocrine. No complaint. Neurological: No complaint. PAST MEDICAL HISTORY: Significant for coronary artery disease and angina. PAST SURGICAL HISTORY: PTCA with stent x2 and coronary artery bypass grafting. SOCIAL HISTORY: Remote history of smoking. No drinking or drug use. FAMILY HISTORY: No pertinent findings noticed. ALLERGIES: No known drug allergies. MEDICATION: Medications include the patient is currently on Aldactone, Protonix, Nitrostat, Lopressor, Cozaar, Dilantin, Colace, Lanoxin, Lipitor and Rocephin 1 g daily. EXAMINATION: Blood pressure is 95/53 with a pulse of 91, temperature 97.1. He is 97% on room air. General description is elderly male, lying in bed in no distress. No tachypnea or accessory muscle of respiration use. HEENT: Shows pallor, no scleral icterus. Oral mucous membranes is dry. No significant erythema or thrush. Neck: Trachea central. No thyromegaly. Lungs unlabored breathing, decreased breath sounds in the bases. No wheeze or crackles. Heart S1, S2. Regular rate and rhythm. ABDOMEN: Soft, no tenderness. No guarding or rigidity. No organomegaly. EXTREMITIES: No edema of the feet. Skin examination: No rash or mass palpable. Neurological: Patient is awake, alert, oriented x2. Mood and affect normal. LABS: Hemoglobin 6.8, white count 1.3, BUN of 19, creatinine 0.60. Electrolytes has been normal. Platelet count is down to 64. Urine on the 13 has been positive. X-rays and CT report as mentioned above. DIAGNOSTIC IMPRESSION AND PLAN: Patient with pancytopenia in a patient who did have a drop in his hemoglobin, white count as well as a platelet count more likely pointing towards possible marrow suppression by any of the drugs that the patient started during this hospital stay as the patient did have a normal white count on admission, though his hemoglobin is slightly low and the platelet count were normal. The patient has been started on Rocephin and beta-lactam can cause leukopenia as well as could be the likely pathogen. Other etiology could be Protonix less likely. PLAN: 1. We will discontinue the Rocephin. 2. We will check a retic count. 3. We will repeat a CBC, RBC, folate, and iron studies for the morning. 4. We will add Cipro 500 p.o. q.12 for the underlying UTI. 5. We will follow up on his clinical condition and culture to further adjust medication if needed. Thank you for this consultation. Will follow this patient along with you. MMODL / IJN: [id number] /
[2017-12-13] MEDS: ATORVASTATIN 20 MG TAB PO SCH (19:35)
[2017-12-13] MEDS: LATANOPROST 0.005% OPHTH DROPS 2.5 ML BTL BOTH EYES SCH (19:36)
[2017-12-13] MEDS: CIPROFLOXACIN HCL 500 MG TAB PO SCH (19:36)
--- NOTE | 2017-12-13 22:09 | P.PN ---
Subjective Progress Note Date: 12/13/17 Principal diagnosis: Acute non-ST elevated CO This is a pleasant 87-year-old gentleman who states that he follows with Dr. HAYDER Gilliland in the office as an outpatient with history of coronary artery disease and status post coronary artery bypass grafting with unknown details about the anatomy and the timing of the surgery at this point, obviously severe cardiomyopathy, status post AICD, hypertension, dyslipidemia presented to the emergency room complaining of chest discomfort. The patient was in his usual state of health when he was at home when he suddenly developed chest discomfort and epigastric discomfort as a sharp kind of discomfort with radiation to the left arm and associated shortness of breath with it. No sweating. No dizziness or lightheadedness. And no syncope. The patient was ruled in for acute coronary syndrome. The EKG showed nonspecific changes but the troponin came in to be elevated and continues to be trending up. He has been pain free since he was admitted to the hospital. Currently he is on heparin IV. Also he is on aspirin. 12/07/2017 Patient denied any complaints of chest discomfort or shortness of breath. Patient did have AICD interrogation this morning. Otherwise blood pressure is slightly low with SBP and 100s. CT chest showed no evidence of pulmonary embolism. 2-D echo was done and report is pending. Aspirin has been discontinued. Patient is being continued on metoprolol and Lanoxin and losartan. Otherwise patient is a poor historian. No fever no chills. No complaints of nausea vomiting or abdominal pain. Discussed with Family at bedside. 12/08/2017 Patient denied any complaints of chest pain or shortness of breath. Blood pressure is low and beta dacia dose has been decreased. 2-D echo showed ejection fraction 20%. Patient is being continued on current management and cardiology is following. 12/09/2017 Patient denied any complains of chest pain or worsening shortness of breath. Otherwise patient is able to ambulate but is desaturating on room air. Blood pressure is fairly controlled today. Otherwise PT OT is following. Coumadin has been restarted. No fever no chills. No cough or sputum production. 12/10/2017 Patient denied any complaints of chest pain or shortness of breath. Saturating well with nausea cannula. Blood pressure is stable today. PT OT is following. Patient was given another 5 mg of Coumadin today. No fever no chills. Patient has been retaining urine and was placed back on Escudero catheter. 12/11/2017 Patient still feels dizzy with walking. Otherwise patient was having chills morning and 40 have urinary tract infection. Patient was started on antibiotics and urine culture was ordered. Otherwise patient is being continued on Coumadin. Patient is also on Escudero catheter. Started on Colace 100 mg twice a day for constipation. Patient is awake cardiology. 12/12/2017 Patient denied any complaints of chest pain or worsening shortness of breath.. Patient did have dark-colored stool today and was also hemoglobin dropped to 7.1. Initial hemoglobin on admission was 8.9. GI was consulted for further evaluation and Coumadin has been held today. Otherwise patient will be continued on current medications and antibiotics. Cardiology is following. 12/13/2017 Patient denied any new complaints today. No complaints of chest pain. Patient still weak and is not ambulating by himself. Hemoglobin further dropped to 6.8 and 1 unit of PRBC was ordered. GI was consulted. Otherwise patient is becoming neutropenic, possible infectious etiology. ID and hematology was consulted for further evaluation. Cardiology is following. Coumadin has been held due to dark-colored stools and suspected GI bleed. Continued on PPI. All other review of systems negative except the above Current medications reviewed. Active Medications Generic Name Dose Route Start Last Admin Trade Name Freq PRN Reason Stop Dose Admin Aspirin 81 mg 12/08/17 09:00 12/09/17 08:40 Aspirin PO 81 mg DAILY MARCIA Administration Atorvastatin Calcium 20 mg 12/06/17 21:00 12/08/17 21:15 Lipitor PO 20 mg HS MARCIA Administration Digoxin 125 mcg 12/07/17 09:00 12/09/17 08:40 Lanoxin PO 125 mcg DAILY MARCIA Administration Latanoprost 1 drops 12/06/17 21:00 12/08/17 21:15 Xalatan 0.005% BOTH EYES 1 drops HS MARCIA Administration Losartan Potassium 25 mg 12/07/17 09:00 12/09/17 12:54 Cozaar PO 25 mg DAILY MARCIA Administration Metoprolol Tartrate 50 mg 12/08/17 09:00 12/09/17 08:40 Lopressor PO 50 mg BID MARCIA Administration Nitroglycerin 0.4 mg 12/06/17 00:09 Nitrostat SUBLINGUAL Q5M PRN Chest Pain Spironolactone 25 mg 12/08/17 14:30 12/09/17 08:40 Aldactone PO 25 mg DAILY MARCIA Administration Warfarin Sodium 5 mg 12/09/17 18:00 12/09/17 17:35 Coumadin PO 12/09/17 18:01 5 mg ONCE@1800 ONE Administration Objective - Vital Signs Vital signs: Vital Signs Temp 99.0 F 12/13/17 19:41 Pulse 100 12/13/17 19:42 Resp 20 12/13/17 19:42 BP 109/55 12/13/17 19:41 Pulse Ox 94 L 12/13/17 19:41 Intake & Output 12/13/17 12/13/17 12/14/17 06:59 18:59 06:59 Intake Total 50 1350 600 Output Total 200 525 200 Balance -150 825 400 Weight 71 kg Intake: IV 300 .9 300 Intake, IV Titration 600 Amount Sodium Chloride 0.9% 1, 600 000 ml @ 75 mls/hr IV . [id number] MARCIA Rx#:[id number] Oral 50 740 Blood Product 310 Rc As-1 Unit 310 [id number] Output: Urine 200 525 200 Other: Voiding Method Indwelling Catheter Indwelling Catheter Indwelling Catheter # Voids 1 1 - Exam PHYSICAL EXAMINATION: Patient is lying in the bed comfortably, no acute distress, awake alert and oriented 1 with underlying dementia.. HEENT: Normocephalic. Neck is supple. Pupils reactive. Nostrils clear. Oral cavity is moist. Ears reveal no drainage. Neck reveals no JVD, carotid bruits, or thyromegaly. CHEST EXAMINATION: Trachea is central. Symmetrical expansion. Lung salter clear to auscultation and percussion. CARDIAC: Normal S1, S2 with no gallops. No murmurs ABDOMEN: Soft. Bowel sounds normal. No organomegaly. No abdominal bruits. Extremities: reveal no edema. No clubbing or cyanosis Neurologically awake, alert, with well-coordinated movements. No focal deficits noted Skin: No rash or skin lesions. Psychiatric: Cooperative. Could not be assessed completely Musculoskeletal: No joint swelling or deformity. Normal range of motion. - Labs CBC & Chem 7: 12/13/17 05:36 12/13/17 05:36 Labs: Abnormal Lab Results - Last 24 Hours (Table) 12/13/17 12/13/17 12/13/17 Range/Units 05:36 05:36 09:46 WBC 1.3 L* (3.8-10.6) k/uL RBC 2.08 L (4.30-5.90) m/uL Hgb 6.8 L* (13.0-17.5) gm/dL Hct 20.7 L (39.0-53.0) % RDW 19.4 H (11.5-15.5) % Plt Count 64 L (150-450) k/uL Neutrophils # (Manual) 0.94 L (1.3-7.7) k/uL Lymphocytes # (Manual) 0.27 L (1.0-4.8) k/uL Creatinine 0.60 L (0.66-1.25) mg/dL Calcium 7.8 L (8.4-10.2) mg/dL Crossmatch See Detail Microbiology - Last 24 Hours (Table) 12/12/17 01:53 Urine Culture - Preliminary Urine,Catheterized Gram Neg Bacilli Assessment and Plan Assessment: 1. Acute non-STEMI. Troponin is trending down. Continue with medical management as per cardiology. 2. Dark-colored stools. Possible GI bleed. Acute blood loss anemia. Hemoglobin dropped from 8.9 on admission -7.1 2. Urinary retention. Status post Escudero cath placement 2. Acute urinary tract infection. Possible cath related. Gram-negative bacilli urine culture. Final report pending 2. Neutropenia. Possibly due to infection and acute medical condition. ID and hematology consulted. 2. Coronary artery disease with history of CABG and PCI; 3. Ischemic cardiopathy Status post AICD; interrogation . Ejection fraction 20 -20% 4. Hypertension 5. Hyperlipidemia 6. Dementia 7. Paroxysmal atrial fibrillation on anticoagulation. Coumadin has been restarted. DVT prophylaxis; on Coumadin CODE STATUS; full code Plan: Patient be continued on aspirin and statin and metoprolol. IV heparin has been discontinued. Coumadin held at this time. Continue with PPI. Continue antibiotics the form of ceftriaxone. Reviewed 2-D echo report. cardiology is following. recommended conservative management. further recommendations based on the clinical course. Prognosis is guarded with multiple medical problems and comorbid conditions. We will discuss with the family tomorrow regarding CODE STATUS. Time with Patient: Greater than 30
--- NOTE | 2017-12-14 04:00 | P.CONS ---
History of Present Illness - Reason for Consult Consult date: 12/13/17 GI bleeding and anemia. - History of Present Illness The patient is an 87-year-old male who presented with epigastric and chest pain as well as shortness of breath and was found to have elevated troponins which were trending up. The patient has history of coronary atherosclerotic heart disease and was started on IV heparin. His cardiac evaluation included an echocardiogram that revealed 20% ejection fraction and patient was managed for non-ST elevation myocardial infarction and Coumadin was added. The patient was doing well with no further chest pain or shortness of breath. The patient was noted yesterday to have dark stools and he dropped his hemoglobin to around 6.9. The patient received 1 unit of packed cells and we were asked to see him for evaluation of GI bleeding. His Coumadin is on hold and was started on Protonix. He denied any dysphagia, odynophagia or abdominal pain. No nausea or vomiting. As noted below, the patient also has evidence of low white cell count and platelet counts. Review of Systems Constitutional: Denies fever, chills, sweats, weight gain, or loss. HEENT: Negative for migraines, blurred vision or loss, earaches, drainage, tinnitus, oral mucosal lesions, dysphagia, or odynophagia. CARDIAC: See present illness above, negative at this time for chest pain, arrhythmias, or palpitation. RESPIRATORY: Negative for shortness of breath, hemoptysis, cough, or sputum production. GI: See HPI for pertinent findings. : Negative for hematuria, urgency, frequency, polyuria, or dysuria. MUSCULOSKELETAL: Negative for muscle aches, swelling, arthritis, and arthralgias. NEUROLOGIC: Negative for stroke or TIA. ENDOCRINE: Negative for thyroid problems. SKIN: Negative for rash or itching. PSYCHIATRIC: Negative history for depression and anxiety Past Medical History Past Medical History: Coronary Artery Disease (CAD), Chest Pain / Angina Additional Past Medical History / Comment(s): [facility] [place] two [place] [facility]. Last Myocardial Infarction Date:: 1991 History of Any Multi-Drug Resistant Organisms: None Reported Past Surgical History: Coronary Bypass/CABG Additional Past Surgical History / Comment(s): CABG x3. Past Anesthesia/Blood Transfusion Reactions: No Reported Reaction Past Psychological History: No Psychological Hx Reported Smoking Status: Former smoker Past Alcohol Use History: None Reported Past Drug Use History: None Reported Medications and Allergies Home Medications Medication Instructions Recorded Confirmed Type Atorvastatin [Lipitor] 20 mg PO HS 12/06/17 12/06/17 History Digoxin [Lanoxin] 125 mcg PO DAILY 12/06/17 12/06/17 History Latanoprost [Xalatan 0.005%] 1 drop BOTH EYES HS 12/06/17 12/06/17 History Warfarin [Coumadin] 2 mg PO DAILY 12/06/17 12/06/17 History Aspirin 81 mg PO DAILY #30 chew 12/11/17 Rx Docusate [Colace] 100 mg PO BID PRN #20 cap 12/11/17 Rx Losartan [Cozaar] 25 mg PO 1200 tab 12/11/17 Rx Metoprolol Tartrate [Lopressor] 50 mg PO BID #60 tab 12/11/17 Rx Spironolactone [Aldactone] 25 mg PO DAILY #30 tab 12/11/17 Rx Allergies Allergy/AdvReac Type Severity Reaction Status Date / Time No Known Allergies Allergy Verified 12/05/17 19:55 Physical Exam Vitals: Vital Signs Temp Pulse Pulse Resp BP BP BP 12/13/17 15:23 87 12/13/17 14:55 97.3 F L 94 16 12/13/17 12:21 97.1 F L 91 16 95/53 12/13/17 11:51 98.8 F 83 16 89/51 12/13/17 11:46 16 12/13/17 11:41 97.7 F 85 16 91/53 12/13/17 11:10 97.5 F L 87 16 91/49 12/13/17 08:00 106 H 12/13/17 07:45 97.8 F 106 H 16 118/56 12/13/17 04:00 97.7 F 62 19 118/55 12/13/17 00:00 97.9 F 94 19 109/54 12/12/17 20:00 98.1 F 99 20 106/51 Pulse Ox 12/13/17 15:23 12/13/17 14:55 97 12/13/17 12:21 93 L 12/13/17 11:51 96 12/13/17 11:46 12/13/17 11:41 93 L 12/13/17 11:10 93 L 12/13/17 08:00 12/13/17 07:45 94 L 12/13/17 04:00 95 12/13/17 00:00 92 L 12/12/17 20:00 93 L Intake and Output 12/13/17 12/13/17 12/13/17 06:59 14:59 22:59 Intake Total 50 870 480 Output Total 525 Balance 50 345 480 Intake: IV 300 .9 300 Oral 50 260 480 Blood Product 310 Rc As-1 Unit 310 [id number] Output: Urine 525 Other: Voiding Method Indwelling Catheter Indwelling Catheter Indwelling Catheter Weight 71 kg General appearance: The patient is alert, oriented, in no acute distress. HET: Head is normocephalic and atraumatic. Conjunctivae pink, sclerae not icteric. Pupils are equal and reactive. Oropharynx is clear without lesions. Neck: Supple without lymphadenopathy. Trachea midline. Heart: S1 S2. Regular rate and rhythm. Lungs: No crackles or wheezes are heard. Abdomen: Soft, nondistended bowel sounds present. No peritoneal signs. No palpable organomegaly or masses. Extremities: Normal skin color and turgor. No cyanosis, rash, ulceration, clubbing, or edema. Radial and pedal pulses are 2/4 bilaterally. Neurological: No focal deficits. Strength and sensation are grossly intact. Results CBC & Chem 7: 12/13/17 05:36 12/13/17 05:36 Labs: Abnormal Lab Results - Last 24 Hours (Table) 12/12/17 12/13/17 12/13/17 Range/Units 20:35 05:36 05:36 WBC 1.3 L* (3.8-10.6) k/uL RBC 2.08 L (4.30-5.90) m/uL Hgb 6.8 L* (13.0-17.5) gm/dL Hct 20.7 L (39.0-53.0) % RDW 19.4 H (11.5-15.5) % Plt Count 64 L (150-450) k/uL Neutrophils # (Manual) 0.94 L (1.3-7.7) k/uL Lymphocytes # (Manual) 0.27 L (1.0-4.8) k/uL Creatinine 0.60 L (0.66-1.25) mg/dL POC Glucose (mg/dL) 100 H (75-99) mg/dL Calcium 7.8 L (8.4-10.2) mg/dL Crossmatch 12/13/17 Range/Units 09:46 WBC (3.8-10.6) k/uL RBC (4.30-5.90) m/uL Hgb (13.0-17.5) gm/dL Hct (39.0-53.0) % RDW (11.5-15.5) % Plt Count (150-450) k/uL Neutrophils # (Manual) (1.3-7.7) k/uL Lymphocytes # (Manual) (1.0-4.8) k/uL Creatinine (0.66-1.25) mg/dL POC Glucose (mg/dL) (75-99) mg/dL Calcium (8.4-10.2) mg/dL Crossmatch See Detail Microbiology - Last 24 Hours (Table) 12/12/17 01:53 Urine Culture - Preliminary Urine,Catheterized Gram Neg Bacilli Assessment and Plan Assessment: Dark stools and drop in hemoglobin likely on the basis of upper GI bleeding while on anticoagulation for non-STEMI. Gastritis, esophagitis or peptic ulcer disease to be considered. The patient is already on PPI. Note is made of his pancytopenia that could be medication related and in part, also accounting for his anemia. Plan: Agree with your current management. Will monitor his hemoglobin closely and transfuse as needed. Further workup of his pancytopenia would be considered. I did not schedule an upper endoscopy or colonoscopy at this time and would keep it as a contingency based on his course and blood counts.
[2017-12-14 06:23] LABS: Anisocytosis Moderate; HCT 22.2 % (39.0-53.0); HGB 7.3 gm/dL (13.0-17.5); Hypochromasia Slight; MCH 31.4 pg (25.0-35.0); MCHC 32.9 g/dL (31.0-37.0); MCV 95.3 fL (80.0-100.0); Macrocytosis Slight; Mean Platelet Volume 13.9; Poikilocytosis Moderate; RBC 2.33 m/uL (4.30-5.90); RDW 20.2 % (11.5-15.5)
[2017-12-14 06:30] LABS: Platelet Count 65 k/uL (150-450); WBC 0.8 k/uL (3.8-10.6)
[2017-12-14 06:33] LABS: Anion Gap 9 mmol/L; Blood Urea Nitrogen 21 mg/dL (9-20); Calcium 7.6 mg/dL (8.4-10.2); Carbon Dioxide 23 mmol/L (22-30); Chloride 104 mmol/L (98-107); Glucose 84 mg/dL (74-99); Potassium 3.8 mmol/L (3.5-5.1); Sodium 136 mmol/L (137-145)
[2017-12-14 07:25] LABS: RBC Fragments Present
[2017-12-14 07:26] LABS: Large Platelets Present; Polychromasia Present
[2017-12-14 07:32] LABS: Reticulocyte % 1.1 % (0.5-2.0)
[2017-12-14] MEDS: PANTOPRAZOLE 40 MG/10 ML VIAL IVP SCH (08:41)
[2017-12-14] MEDS: DOCUSATE 100 MG CAP PO SCH ×2 (08:41→20:17)
[2017-12-14] MEDS: DIGOXIN 125 MCG TAB PO SCH (08:41)
[2017-12-14] MEDS: METOPROLOL TARTRATE 25 MG TAB PO SCH ×2 (08:42→20:17)
[2017-12-14] MEDS: CIPROFLOXACIN HCL 500 MG TAB PO SCH ×2 (08:42→20:17)
[2017-12-14] MEDS: SPIRONOLACTONE 25 MG TAB PO SCH (08:43)
--- NOTE | 2017-12-14 10:05 | P.PN ---
Subjective Progress Note Date: 12/14/17 Principal diagnosis: Admitted with reports of dark colored bowel movements with drop in hemoglobin. Previously receiving Coumadin. No bleeding. White count decreased this morning 0.8. Hemoglobin 7.3. Platelets 65,000. INR 2.6 on 12/12/2017. Denies abdominal pain. Tolerating regular diet. Objective - Vital Signs Vital signs: Vital Signs Temp 97 F L 12/14/17 08:35 Pulse 108 H 12/14/17 08:35 Resp 20 12/14/17 08:35 BP 111/56 12/14/17 08:35 Pulse Ox 92 L 12/14/17 08:35 Intake & Output 12/13/17 12/14/17 12/14/17 18:59 06:59 18:59 Intake Total 1350 700 Output Total 525 200 Balance 825 500 Weight 63.5 kg Intake: IV 300 .9 300 Intake, IV Titration 600 Amount Sodium Chloride 0.9% 1, 600 000 ml @ 75 mls/hr IV . [id number] [facility] Rx#:[id number] Oral 740 100 Blood Product 310 Rc As-1 Unit 310 [id number] Output: Urine 525 200 Other: Voiding Method Indwelling Catheter Indwelling Catheter # Voids 1 - Exam General appearance: The patient is alert, oriented, in no acute distress. HET: Head is normocephalic and atraumatic. Pupils are equal and reactive. Oropharynx is clear without lesions. Neck: Supple without lymphadenopathy. Trachea midline. Heart: S1 S2. Regular rate and rhythm. Lungs: No crackles or wheezes are heard. Abdomen: Soft, nontender, nondistended with bowel sounds. No peritoneal signs. No palpable organomegaly or masses. Extremities: Normal skin color and turgor. No cyanosis, rash, ulceration, clubbing, or edema. Radial and pedal pulses are 2/4 bilaterally. Neurological: No focal deficits. Strength and sensation are grossly intact. - Labs CBC & Chem 7: 12/14/17 05:32 12/14/17 05:32 Labs: Abnormal Lab Results - Last 24 Hours (Table) 12/13/17 12/13/17 12/14/17 Range/Units 05:36 09:46 05:32 WBC (3.8-10.6) k/uL RBC (4.30-5.90) m/uL Hgb (13.0-17.5) gm/dL Hct (39.0-53.0) % RDW (11.5-15.5) % Plt Count (150-450) k/uL Sodium 136 L (137-145) mmol/L BUN 21 H (9-20) mg/dL Creatinine 0.60 L (0.66-1.25) mg/dL Calcium 7.6 L (8.4-10.2) mg/dL Vitamin B12 159.0 L (200.0-944.0) pg/mL Crossmatch See Detail 12/14/17 Range/Units 05:32 WBC 0.8 L* (3.8-10.6) k/uL RBC 2.33 L (4.30-5.90) m/uL Hgb 7.3 L (13.0-17.5) gm/dL Hct 22.2 L (39.0-53.0) % RDW 20.2 H (11.5-15.5) % Plt Count 65 L (150-450) k/uL Sodium (137-145) mmol/L BUN (9-20) mg/dL Creatinine (0.66-1.25) mg/dL Calcium (8.4-10.2) mg/dL Vitamin B12 (200.0-944.0) pg/mL Crossmatch Assessment and Plan (1) GI bleeding Narrative/Plan: 87-year-old gentleman admitted with shortness of breath epigastric chest pain suspected acute upper GI bleed with melena and drop in hemoglobin exacerbated by new-onset of pancytopenia receiving anticoagulation for history of non-STEMI with underlying Coumadin-induced coagulopathy. Current Visit: Yes Status: Acute Code(s): K92.2 - GASTROINTESTINAL HEMORRHAGE, UNSPECIFIED SNOMED Code(s): 81150216 (2) Pancytopenia Current Visit: Yes Status: Acute Code(s): D61.818 - OTHER PANCYTOPENIA SNOMED Code(s): 172327385 (3) Non-STEMI (non-ST elevated myocardial infarction) Current Visit: Yes Status: Acute Code(s): I21.4 - NON-ST ELEVATION (NSTEMI) MYOCARDIAL INFARCTION SNOMED Code(s): 638585810 (4) Warfarin-induced coagulopathy Current Visit: Yes Status: Acute Code(s): D68.32 - HEMORRHAGIC DISORD D/T EXTRINSIC CIRCULATING ANTICOAGULANTS; T45.515A - ADVERSE EFFECT OF ANTICOAGULANTS, INITIAL ENCOUNTER SNOMED Code(s): 71931915 (5) Acute blood loss anemia Current Visit: Yes Status: Acute Code(s): D62 - ACUTE POSTHEMORRHAGIC ANEMIA SNOMED Code(s): 593325591 Plan: 1. Presently no active bleeding. Anticoagulation has been placed on hold. Hematology evaluating pancytopenia. Endoscopic exams were discussed on admission presently on hold secondary to pancytopenia. Continue with GI prophylaxis Protonix 40 mg IV daily. We'll continue to evaluate on a daily basis. Continue diet as tolerated. CBC monitoring. Further recommendations forthcoming. Assessment and plan a care discussed with Dr. García
[2017-12-14] MEDS: LOSARTAN 25 MG TAB PO SCH (12:09)
--- NOTE | 2017-12-14 14:35 | P.PN ---
Subjective Progress Note Date: 12/14/17 This is a pleasant 87-year-old gentleman who follows regularly with Dr. Enrike Gilliland in the office. He has a known history of coronary artery disease with prior bypass surgery, prior PCI's, ischemic cardiomyopathy prior AICD, paroxysmal atrial fibrillation, on Coumadin for anticoagulation, hypertension, hyperlipidemia, who presented to the hospital with symptoms of chest and epigastric discomfort. Patient ruled in for acute coronary syndrome, EKG showed nonspecific changes but troponin came back to be abnormal. Troponins 1.9 , 1.2, 0.9. Since the patient was admitted to the hospital, he has had no further symptoms of chest discomfort. CTA of the chest was performed which did not reveal a pulmonary embolism, it did show small bilateral pleural effusions. Echocardiogram with Doppler study has been performed but is yet pending. Patient was seen and examined this morning, denies any chest discomfort, breathing overall is stable. We did have the AICD. Interrogated this morning, functioning appropriately. Blood pressure this morning 104/50 with a heart rate in the 80s to 90s, afebrile, 95% on room air. INR yesterday 2.3. We will decrease the aspirin 81 mg daily today, discontinue IV heparin. Continue losartan, Lanoxin and metoprolol. 12/08/2017 Patient seen and examined this morning, blood pressure this morning 88/43, heart rate in the 90s, 94% on room air. Patient was on 100 mg of metoprolol twice a day, we'll decrease this to 50 twice a day today. INR is 1.6. We will give the patient 5 mg of Coumadin today, from tomorrow resume home dose of 2 mg daily. 12/09/2017 Patient seen and examined this morning, feeling well overall, eager to get up ambulating. Blood pressure 112/50, heart rate in the 90s. 12/10/2017 Patient seen and examined this morning, blood pressure 122/57 after he received his medications, at noon today blood pressure 86/40. Asymptomatic, not dizzy or lightheaded. PT 14.4, INR 1.6. We will give an additional Coumadin 5 today. 12/12/2017 Patient was seen and examined this morning, had significant drop in blood pressure orthostatically. Hemoglobin down to 7.1 today. INR 2.6. Coumadin is currently on hold. We will decrease the dose of beta dacia and angiotensin dacia. Continue his other medications. Patient may require blood transfusion. We will continue to follow. 12/14/2017 Patient seen and examined this morning, denies any further bleeding. Consultation is in place with oncology. White blood cell count 0.8, hemoglobin 7.3, platelet count 65. Sodium 136, potassium 3.8, urine 21, creatinine 0.6. Objective - Vital Signs Vital signs: Vital Signs Temp 97.7 F 12/14/17 11:47 Pulse 90 12/14/17 11:47 Resp 22 12/14/17 11:47 BP 106/54 12/14/17 11:47 Pulse Ox 96 12/14/17 11:47 Intake & Output 12/13/17 12/14/17 12/14/17 18:59 06:59 18:59 Intake Total 1350 700 720 Output Total 525 200 Balance 825 500 720 Weight 63.5 kg Intake: IV 300 600 .9 300 600 Intake, IV Titration 600 Amount Sodium Chloride 0.9% 1, 600 000 ml @ 75 mls/hr IV . [id number] [facility] Rx#:[id number] Oral 740 100 120 Blood Product 310 Rc As-1 Unit 310 [id number] Output: Urine 525 200 Other: Voiding Method Indwelling Catheter Indwelling Catheter Indwelling Catheter # Voids 1 - Exam PHYSICAL EXAMINATION: HEENT: Head is atraumatic, normocephalic. Pupils equal, round. Neck is supple. There is no elevated jugular venous pressure. HEART EXAMINATION: Heart S1, S2 normal. No murmur or gallop heard. CHEST EXAMINATION: Lungs are clear to auscultation and precussion. No chest wall tenderness is noted on palpation or with deep breathing. ABDOMEN: Soft, nontender. Bowel sounds are heard. No organomegaly noted. EXTREMITIES: 2+ peripheral pulses with no evidence of peripheral edema and no calf tenderness noted. NEUROLOGIC patient is awake, alert and oriented -3. . - Labs CBC & Chem 7: 12/14/17 05:32 12/14/17 05:32 Labs: Abnormal Lab Results - Last 24 Hours (Table) 12/13/17 12/13/17 12/14/17 Range/Units 05:36 09:46 05:32 WBC (3.8-10.6) k/uL RBC (4.30-5.90) m/uL Hgb (13.0-17.5) gm/dL Hct (39.0-53.0) % RDW (11.5-15.5) % Plt Count (150-450) k/uL Sodium 136 L (137-145) mmol/L BUN 21 H (9-20) mg/dL Creatinine 0.60 L (0.66-1.25) mg/dL Calcium 7.6 L (8.4-10.2) mg/dL Vitamin B12 159.0 L (200.0-944.0) pg/mL Crossmatch See Detail 12/14/17 Range/Units 05:32 WBC 0.8 L* (3.8-10.6) k/uL RBC 2.33 L (4.30-5.90) m/uL Hgb 7.3 L (13.0-17.5) gm/dL Hct 22.2 L (39.0-53.0) % RDW 20.2 H (11.5-15.5) % Plt Count 65 L (150-450) k/uL Sodium (137-145) mmol/L BUN (9-20) mg/dL Creatinine (0.66-1.25) mg/dL Calcium (8.4-10.2) mg/dL Vitamin B12 (200.0-944.0) pg/mL Crossmatch Microbiology - Last 24 Hours (Table) 12/12/17 01:53 Urine Culture - Final Urine,Catheterized Proteus mirabilis Assessment and Plan Plan: Assessment and plan #1 non-ST elevation LA, continue maximal medical therapy. Aspirin discontinued because of thrombocytopenia #2 known history of coronary artery disease with prior bypass surgery and PCI's. #3 ischemic cardio myopathy status post AICD implant. AICD was interrogated this morning, functioning appropriately. #4 hypertension #5 hyperlipidemia #6 anemia with evidence of melena stool #7 low white blood cell count and thrombocytopenia, hematology consulted Plan We will continue to hold Coumadin along with aspirin. From cardiology's perspective once the patient is stable for discharge, we will make a follow-up appointment in the office. DNP note has been reviewed, I agree with a documented findings and plan of care. Patient was seen and examined.
--- NOTE | 2017-12-14 15:07 | P.PN ---
Subjective This is the first time on taking care of the patient DAVID This is a pleasant 87-year-old gentleman who states that he follows with Dr. HAYDER Gilliland in the office as an outpatient with history of coronary artery disease and status post coronary artery bypass grafting with unknown details about the anatomy and the timing of the surgery at this point, obviously severe cardiomyopathy, status post AICD, hypertension, dyslipidemia presented to the emergency room complaining of chest discomfort. The patient was in his usual state of health when he was at home when he suddenly developed chest discomfort and epigastric discomfort as a sharp kind of discomfort with radiation to the left arm and associated shortness of breath with it. No sweating. No dizziness or lightheadedness. And no syncope.CT chest showed no evidence of pulmonary embolism. The patient was ruled in for acute coronary syndrome. The EKG showed nonspecific changes but the troponin were elevated 2-D echo showed ejection fraction 20%. On 12/11, patient was found to have UTI and was started on antibiotic, Cipro On 12/12, his hospital course was complicated by dark-colored stool with drop in hemoglobin to 7.1, 1 unit of PRBC was ordered. GI was consulted. Otherwise patient was becoming neutropenic/pancytopenic, possible infectious etiology. ID and hematology was consulted for further evaluation. 12/14 his WBC 0.8 platelets 65 and hemoglobin 7.3 Subjective Patient is seen and examined by me on that side Cardiology team has evaluated the patient today, continue to hold Coumadin and aspirin on their recommendation, patient is stable for discharge from cardiology standpoints and follow-up as an outpatient Objective - Vital Signs Vital signs: Vital Signs Temp 97.7 F 12/14/17 11:47 Pulse 90 12/14/17 11:47 Resp 22 12/14/17 11:47 BP 106/54 12/14/17 11:47 Pulse Ox 96 12/14/17 11:47 Intake & Output 12/13/17 12/14/17 12/14/17 18:59 06:59 18:59 Intake Total 1350 700 720 Output Total 525 200 Balance 825 500 720 Weight 63.5 kg Intake: IV 300 600 .9 300 600 Intake, IV Titration 600 Amount Sodium Chloride 0.9% 1, 600 000 ml @ 75 mls/hr IV . [id number] [facility] Rx#:[id number] Oral 740 100 120 Blood Product 310 Rc As-1 Unit 310 [id number] Output: Urine 525 200 Other: Voiding Method Indwelling Catheter Indwelling Catheter Indwelling Catheter # Voids 1 - Exam Patient is lying in the bed comfortably, no acute distress, awake alert and oriented [address], with underlying dementia.. HEENT: Normocephalic. Neck is supple. Pupils reactive. Nostrils clear. Oral cavity is moist. Ears reveal no drainage. Neck reveals no JVD, carotid bruits, or thyromegaly. CHEST EXAMINATION: Trachea is central. Symmetrical expansion. Lung salter clear to auscultation and percussion. CARDIAC: Normal S1, S2 with no gallops. No murmurs ABDOMEN: Soft. Bowel sounds normal. No organomegaly. No abdominal bruits. Extremities: reveal no edema. No clubbing or cyanosis Neurologically awake, alert, with well-coordinated movements. No focal deficits noted Skin: No rash or skin lesions. Psychiatric: Cooperative. Could not be assessed completely Musculoskeletal: No joint swelling or deformity. Normal range of motion. - Labs CBC & Chem 7: 12/14/17 05:32 12/14/17 05:32 Labs: Abnormal Lab Results - Last 24 Hours (Table) 12/13/17 12/13/17 12/14/17 Range/Units 05:36 09:46 05:32 WBC (3.8-10.6) k/uL RBC (4.30-5.90) m/uL Hgb (13.0-17.5) gm/dL Hct (39.0-53.0) % RDW (11.5-15.5) % Plt Count (150-450) k/uL Sodium 136 L (137-145) mmol/L BUN 21 H (9-20) mg/dL Creatinine 0.60 L (0.66-1.25) mg/dL Calcium 7.6 L (8.4-10.2) mg/dL Vitamin B12 159.0 L (200.0-944.0) pg/mL Crossmatch See Detail 12/14/17 Range/Units 05:32 WBC 0.8 L* (3.8-10.6) k/uL RBC 2.33 L (4.30-5.90) m/uL Hgb 7.3 L (13.0-17.5) gm/dL Hct 22.2 L (39.0-53.0) % RDW 20.2 H (11.5-15.5) % Plt Count 65 L (150-450) k/uL Sodium (137-145) mmol/L BUN (9-20) mg/dL Creatinine (0.66-1.25) mg/dL Calcium (8.4-10.2) mg/dL Vitamin B12 (200.0-944.0) pg/mL Crossmatch Microbiology - Last 24 Hours (Table) 12/12/17 01:53 Urine Culture - Final Urine,Catheterized Proteus mirabilis Assessment and Plan Assessment: Assessment: 1. Acute non-STEMI. Troponin is trending down. Continue with medical management as per cardiology. 2. Dark-colored stools. Possible GI bleed. Acute blood loss anemia. Hemoglobin dropped from 8.9 on admission -7.1 2. Urinary retention. Status post Escudero cath placement 2. Acute urinary tract infection. Possible cath related. Gram-negative bacilli urine culture. Final report pending 2. Neutropenia. Possibly due to infection and acute medical condition. ID and hematology consulted. 2. Coronary artery disease with history of CABG and PCI; 3. Ischemic cardiopathy Status post AICD; interrogation . Ejection fraction 20 -20% 4. Hypertension 5. Hyperlipidemia 6. Dementia 7. Paroxysmal atrial fibrillation on anticoagulation. Coumadin has been restarted. DVT prophylaxis; on Coumadin CODE STATUS; full code Plan: Patient be continued on aspirin and statin and metoprolol. IV heparin has been discontinued. Coumadin held at this time. Continue with PPI. Continue antibiotics with Cipro Reviewed 2-D echo report. cardiology has cleared the patient for discharge and follow-up. Please refer to their notes from 12/14/17 Anemias workup is pending ID and hematology consult are called and are pending Prognosis is guarded with multiple medical problems and comorbid conditions. Attending from yesterday wanting to discuss with the family regarding CODE STATUS. However they left nearly today
[2017-12-14] MEDS: SODIUM CHLORIDE 0.9% 1,000 ML IV SCH ×2 (15:58→19:34)
--- NOTE | 2017-12-14 18:19 | P.CONS ---
History of Present Illness - Reason for Consult Consult date: 12/14/17 Pancytopenia, anemia of blood loss - History of Present Illness The patient is an 87-year-old male, with multiple medical problems. He has severe cardiomyopathy with AICD placement and is on Coumadin chronically. He came in to the hospital with fairly sudden onset of lower chest and upper abdominal pain, associated with some sweating and nausea. He was initially worked up with CT of the abdomen and pelvis, as well as a CTA. These studies were overall unrevealing. His troponins were found to be positive with an upward trend. He was started on IV heparin. INR during this admission was in the high 1 to the low 2 range. On admission the patient was noted to have pancytopenia, with hemoglobin 8.9, white count 4.1, and platelets 128. The patient was managed medically for his non--STEMI. Heparin was discontinued and he was transitioned back to Coumadin. INR became therapeutic on 12/11/17 at 2.2. The patient at this time developed black stools with repeat hemoglobin count dropping into the 7 range and ultimately to 6.8 yesterday. Warfarin was therefore stopped. The patient is a blood transfusions. Along with drop in hemoglobin his white blood count and platelets are also noted to have dropped. Total WBC today was 0.8 with platelets of 65. Consult was therefore placed for further evaluation and recommendations The patient denied any prior history of blood related problems. During this admission he did receive Rocephin for possible pneumonia which was discontinued subsequently. Partial pancytopenia workup was ordered by ID, and showed low B12. We have previous labs do show chronic mild thrombocytopenia in the 100 range, which is similar to his level at admission. He is no history of any excessive alcohol use, or use of any medications prior to admission. Review of Systems Constitutional: Reports fatigue, Reports poor appetite, Reports weakness, Reports weight loss Eyes: denies blurred vision, denies pain Ears: bilateral: decreased hearing, deny: ear discharge, earache, tinnitus Ears, nose, mouth and throat: Denies headache, Denies sore throat Cardiovascular: Reports as per HPI, Reports dyspnea on exertion, Reports orthopnea Respiratory: Reports dyspnea Gastrointestinal: Reports as per HPI, Reports abdominal pain, Reports melena Genitourinary: Reports as per HPI Musculoskeletal: Reports muscle weakness Integumentary: Denies pruritus, Denies rash Neurological: Reports memory loss, Reports weakness Psychiatric: Reports memory loss Endocrine: Reports fatigue, Reports weight change Hematologic/Lymphatic: Reports as per HPI Past Medical History Past Medical History: Coronary Artery Disease (CAD), Chest Pain / Angina Additional Past Medical History / Comment(s): SC in 1991 with two stents placed. Last Myocardial Infarction Date:: 1991 History of Any Multi-Drug Resistant Organisms: None Reported Past Surgical History: Coronary Bypass/CABG Additional Past Surgical History / Comment(s): CABG x3. Past Anesthesia/Blood Transfusion Reactions: No Reported Reaction Past Psychological History: No Psychological Hx Reported Smoking Status: Former smoker Past Alcohol Use History: None Reported Past Drug Use History: None Reported Medications and Allergies Home Medications Medication Instructions Recorded Confirmed Type Atorvastatin [Lipitor] 20 mg PO HS 12/06/17 12/06/17 History Digoxin [Lanoxin] 125 mcg PO DAILY 12/06/17 12/06/17 History Latanoprost [Xalatan 0.005%] 1 drop BOTH EYES HS 12/06/17 12/06/17 History Warfarin [Coumadin] 2 mg PO DAILY 12/06/17 12/06/17 History Aspirin 81 mg PO DAILY #30 chew 12/11/17 Rx Docusate [Colace] 100 mg PO BID PRN #20 cap 12/11/17 Rx Losartan [Cozaar] 25 mg PO 1200 tab 12/11/17 Rx Metoprolol Tartrate [Lopressor] 50 mg PO BID #60 tab 12/11/17 Rx Spironolactone [Aldactone] 25 mg PO DAILY #30 tab 12/11/17 Rx Allergies Allergy/AdvReac Type Severity Reaction Status Date / Time No Known Allergies Allergy Verified 12/05/17 19:55 Physical Exam Vitals: Vital Signs Temp Pulse Resp BP BP Pulse Ox 12/14/17 16:00 16 12/14/17 15:50 97 F L 92 16 103/53 96 12/14/17 11:47 97.7 F 90 22 106/54 96 12/14/17 08:35 97 F L 108 H 20 111/56 92 L 12/14/17 04:00 98.6 F 104 H 19 105/53 92 L 12/13/17 23:40 98.3 F 107 H 18 99/54 94 L 12/13/17 19:42 100 20 12/13/17 19:41 99.0 F 100 20 109/55 94 L Intake and Output 12/14/17 12/14/17 12/14/17 06:59 14:59 22:59 Intake Total 100 720 Output Total 950 Balance 100 720 -950 Intake: IV 600 .9 600 Oral 100 120 Output: Urine 950 Other: Voiding Method Indwelling Catheter Indwelling Catheter Indwelling Catheter Weight 63.5 kg - Constitutional General appearance: no acute distress - EENT Eyes: EOMI, PERRLA ENT: hearing grossly normal, normal oropharynx - Neck Neck: no lymphadenopathy Thyroid: bilateral: normal size - Respiratory Respiratory: bilateral: CTA - Cardiovascular Rhythm: regular Heart sounds: normal: S1, S2 Abnormal Heart Sounds: S3 Gallop - Gastrointestinal General gastrointestinal: normal bowel sounds, soft - Integumentary Integumentary: normal - Neurologic Hearing loss. Other cranial nerves are intact - Musculoskeletal Musculoskeletal: generalized weakness, strength equal bilaterally - Psychiatric Psychiatric: A&O x's 3, appropriate affect Results CBC & Chem 7: 12/14/17 05:32 12/14/17 05:32 Labs: Abnormal Lab Results - Last 24 Hours (Table) 12/13/17 12/14/17 12/14/17 Range/Units 05:36 05:32 05:32 WBC 0.8 L* (3.8-10.6) k/uL RBC 2.33 L (4.30-5.90) m/uL Hgb 7.3 L (13.0-17.5) gm/dL Hct 22.2 L (39.0-53.0) % RDW 20.2 H (11.5-15.5) % Plt Count 65 L (150-450) k/uL Sodium 136 L (137-145) mmol/L BUN 21 H (9-20) mg/dL Creatinine 0.60 L (0.66-1.25) mg/dL Calcium 7.6 L (8.4-10.2) mg/dL Vitamin B12 159.0 L (200.0-944.0) pg/mL Microbiology - Last 24 Hours (Table) 12/12/17 01:53 Urine Culture - Final Urine,Catheterized Proteus mirabilis Comments: Echocardiogram report reviewed Chest x-ray: report reviewed CT scan - abdomen: report reviewed CT scan - chest: report reviewed CT scan - pelvis: report reviewed Venous US: report reviewed Assessment and Plan (1) Pancytopenia Narrative/Plan: This is felt to be most likely multifactorial. The patient had some borderline cytopenias previously. 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 According to his family member was present at the bedside, during the winter the patient is quite inactive and generally has poor appetite and lose weight. Pancytopenia workup so far also shows B12 deficiency. In addition the patient had additional stress due to possible pneumonia, acute SC, and GI bleed. Beta-lactam antibiotics may also have played a role - The patient will be started on B12 supplementation parenterally. He will also be started on white cell growth factors. - Await results of ordered pancytopenia labs. Additional workup will be ordered. - Continue monitoring of blood count with supportive treatment. - Depending on the patient's response with the above measures, and resolution of his acute conditions, additional recommendations will be forthcoming - His platelet counts are above 50,000, and therefore in a safe range, even for anticoagulation or invasive procedures Current Visit: Yes Status: Acute Code(s): D61.818 - OTHER PANCYTOPENIA SNOMED Code(s): 256008708 (2) Acute blood loss anemia Narrative/Plan: On this occurred when the patient was on anticoagulation. As noted he was on IV heparin and then subsequently was being transitioned to Coumadin. However INR was never supratherapeutic and the patient has been on Coumadin chronically. Agree with blood transfusion, which has stabilize his hemoglobin. Continue to monitor with additional transfusions as needed. Given the clinical presentation, I would recommend that the patient should have an EGD down the line. If the hemoglobin stable, this can be scheduled, once WBC improved into a safe range which would reduce the risk of the procedure. Current Visit: Yes Status: Acute Code(s): D62 - ACUTE POSTHEMORRHAGIC ANEMIA SNOMED Code(s): 246935107
[2017-12-14] MEDS ORDERED: FILGRASTIM-SNDZ 480 MCG/0.8 ML SYRINGE SQ SCH (18:30)
[2017-12-14 18:34] LABS: Iron Saturation 7.92 (15.00-50.00)
[2017-12-14] MEDS: CYANOCOBALAMIN 1,000 MCG/ML 1 ML VIAL IM SCH (20:15)
[2017-12-14] MEDS: FILGRASTIM-SNDZ 480 MCG/0.8 ML SYRINGE SQ SCH (20:17)
[2017-12-14] MEDS: ATORVASTATIN 20 MG TAB PO SCH (20:17)
[2017-12-14] MEDS: LATANOPROST 0.005% OPHTH DROPS 2.5 ML BTL BOTH EYES SCH (20:17)
--- NOTE | 2017-12-14 22:52 | PN ---
PROGRESS NOTE DATE OF SERVICE: 12/14/2017. REASON FOR FOLLOW UP: 1. UTI. 2. Leukopenia. INTERVAL HISTORY: The patient is afebrile. He is breathing comfortably. Denies having any chest pain, shortness of breath or cough. No abdominal pain or diarrhea. EXAMINATION: Blood pressure 102/53, pulse of 90, temperature 97, he is 96% on room air. General description is an elderly male lying in bed in no distress. Respiratory system unlabored breathing, clear to auscultation anteriorly. Heart S1, S2 regular rate and rhythm. ABDOMEN: Soft with no tenderness. EXTREMITIES: No edema of the feet. LABS: BUN of 21, creatinine 0.60, hemoglobin 7.3, white count 0.8. DIAGNOSTIC IMPRESSION AND PLAN: 1. Patient with Proteus mirabilis urinary tract infection treated with oral Cipro which will be continued. 2. Patient with leukopenia likely a component of a pancytopenia, more likely drug effect. Hematology has been consulted. We will follow their recommendation. MMODL / IJN: [id number] /
[2017-12-15 06:24] LABS: Anisocytosis Slight; HCT 22.4 % (39.0-53.0); HGB 7.3 gm/dL (13.0-17.5); Hypochromasia Moderate; MCH 31.8 pg (25.0-35.0); MCHC 32.8 g/dL (31.0-37.0); Macrocytosis Slight; Mean Platelet Volume 12.7; Poikilocytosis Moderate; RBC 2.31 m/uL (4.30-5.90); RDW 19.7 % (11.5-15.5); Reticulocyte % 0.9 % (0.5-2.0); WBC 3.7 k/uL (3.8-10.6)
[2017-12-15 06:34] LABS: Platelet Count 66 k/uL (150-450)
[2017-12-15 06:44] LABS: Anion Gap 8 mmol/L; Blood Urea Nitrogen 14 mg/dL (9-20); Calcium 7.6 mg/dL (8.4-10.2); Carbon Dioxide 25 mmol/L (22-30); Chloride 103 mmol/L (98-107); Glucose 83 mg/dL (74-99); Potassium 3.7 mmol/L (3.5-5.1); Sodium 136 mmol/L (137-145)
[2017-12-15 07:11] LABS: Lymphocytes # (M) 0.22 k/uL (1.0-4.8); Monocytes # (M) 0.11 k/uL (0-1.0); Neutrophils # (M) 3.37 k/uL (1.3-7.7); Neutrophils % (M) 91 %; Nucleated Red Blood Cells 0 /100 WBC (0-0); Total Cells Counted 100
[2017-12-15 07:13] LABS: Large Platelets Present
[2017-12-15] MEDS: LOSARTAN 25 MG TAB PO SCH (08:05)
[2017-12-15] MEDS: DIGOXIN 125 MCG TAB PO SCH (08:05)
[2017-12-15] MEDS: METOPROLOL TARTRATE 25 MG TAB PO SCH ×2 (08:05→20:12)
[2017-12-15] MEDS: CIPROFLOXACIN HCL 500 MG TAB PO SCH ×2 (08:05→20:11)
[2017-12-15] MEDS: DOCUSATE 100 MG CAP PO SCH ×2 (08:05→20:11)
[2017-12-15] MEDS: SPIRONOLACTONE 25 MG TAB PO SCH (08:05)
[2017-12-15] MEDS: PANTOPRAZOLE 40 MG/10 ML VIAL IVP SCH (08:05)
[2017-12-15] MEDS: CYANOCOBALAMIN 1,000 MCG/ML 1 ML VIAL IM SCH (08:06)
--- NOTE | 2017-12-15 10:34 | P.PN ---
Subjective Progress Note Date: 12/15/17 Principal diagnosis: Admitted with reports of dark colored bowel movements with drop in hemoglobin. Previously receiving Coumadin. No bleeding. White count improved today. Hemoglobin unchanged 7.3. Platelets stable. Seen by hematology recommendations evaluation appreciated. Denies abdominal pain. Tolerating regular diet. Objective - Vital Signs Vital signs: Vital Signs Temp 97.9 F 12/15/17 03:30 Pulse 101 H 12/15/17 03:30 Resp 18 12/15/17 03:30 BP 104/50 12/15/17 03:30 Pulse Ox 93 L 12/15/17 03:30 Intake & Output 12/14/17 12/15/17 12/15/17 18:59 06:59 18:59 Intake Total 720 400 Output Total 950 450 Balance -230 -50 Weight 70.5 kg Intake: IV 600 .9 600 Intake, IV Titration 400 Amount Sodium Chloride 0.9% 1, 400 000 ml @ 50 mls/hr IV . Q20H [facility] Rx#:[id number] Oral 120 Output: Urine 950 450 Other: Voiding Method Indwelling Catheter Indwelling Catheter - Exam General appearance: The patient is alert, oriented, in no acute distress. HET: Head is normocephalic and atraumatic. Pupils are equal and reactive. Oropharynx is clear without lesions. Neck: Supple without lymphadenopathy. Trachea midline. Heart: S1 S2. Regular rate and rhythm. Lungs: No crackles or wheezes are heard. Abdomen: Soft, nontender, nondistended with bowel sounds. No peritoneal signs. No palpable organomegaly or masses. Extremities: Normal skin color and turgor. No cyanosis, rash, ulceration, clubbing, or edema. Radial and pedal pulses are 2/4 bilaterally. Neurological: No focal deficits. Strength and sensation are grossly intact. - Labs CBC & Chem 7: 12/15/17 05:40 12/15/17 05:40 Labs: Abnormal Lab Results - Last 24 Hours (Table) 12/14/17 12/15/17 12/15/17 Range/Units 05:32 05:40 05:40 WBC 3.7 L (3.8-10.6) k/uL RBC 2.31 L (4.30-5.90) m/uL Hgb 7.3 L (13.0-17.5) gm/dL Hct 22.4 L (39.0-53.0) % RDW 19.7 H (11.5-15.5) % Plt Count 66 L (150-450) k/uL Lymphocytes # (Manual) 0.22 L (1.0-4.8) k/uL Sodium 136 L (137-145) mmol/L Creatinine 0.63 L (0.66-1.25) mg/dL Calcium 7.6 L (8.4-10.2) mg/dL Iron 19 L (65-175) ug/dL Iron Saturation 7.92 L (15.00-50.00) Vitamin B12 149.0 L (200.0-944.0) pg/mL Microbiology - Last 24 Hours (Table) 12/12/17 01:53 Urine Culture - Final Urine,Catheterized Proteus mirabilis Assessment and Plan (1) GI bleeding Narrative/Plan: 87-year-old gentleman admitted with shortness of breath epigastric chest pain suspected acute upper GI bleed with melena and drop in hemoglobin exacerbated by new-onset of pancytopenia receiving anticoagulation for history of non-STEMI with underlying Coumadin-induced coagulopathy. Current Visit: Yes Status: Acute Code(s): K92.2 - GASTROINTESTINAL HEMORRHAGE, UNSPECIFIED SNOMED Code(s): 88775319 (2) Pancytopenia Narrative/Plan: Multifactorial possible underlying myelodysplasia possible medication component. Current Visit: Yes Status: Acute Code(s): D61.818 - OTHER PANCYTOPENIA SNOMED Code(s): 856528910 (3) Non-STEMI (non-ST elevated myocardial infarction) Current Visit: Yes Status: Acute Code(s): I21.4 - NON-ST ELEVATION (NSTEMI) MYOCARDIAL INFARCTION SNOMED Code(s): 326500544 (4) Warfarin-induced coagulopathy Current Visit: Yes Status: Acute Code(s): D68.32 - HEMORRHAGIC DISORD D/T EXTRINSIC CIRCULATING ANTICOAGULANTS; T45.515A - ADVERSE EFFECT OF ANTICOAGULANTS, INITIAL ENCOUNTER SNOMED Code(s): 53069406 (5) Acute blood loss anemia Current Visit: Yes Status: Acute Code(s): D62 - ACUTE POSTHEMORRHAGIC ANEMIA SNOMED Code(s): 517840487 Plan: 1. Presently no active bleeding. Anticoagulation has been placed on hold. Hematology recommendations appreciated. Endoscopic exams recommended as outpatient considering no active bleeding for more than 48 hours and CBC stable/ slowly improving. Continue with GI prophylaxis Protonix 40 mg IV daily. We'll continue to evaluate on a daily basis. Continue diet as tolerated. CBC monitoring. Assessment and plan a care discussed with Dr. García
[2017-12-15 11:17] LABS: Protein, Total 4.6 g/dL (6.2-8.2)
[2017-12-15] MEDS: SODIUM CHLORIDE 0.9% 1,000 ML IV SCH (13:48)
--- NOTE | 2017-12-15 15:21 | P.PN ---
Subjective Progress Note Date: 12/15/17 This is a pleasant 87-year-old gentleman who follows regularly with Dr. Enrike Gilliland in the office. He has a known history of coronary artery disease with prior bypass surgery, prior PCI's, ischemic cardiomyopathy prior AICD, paroxysmal atrial fibrillation, on Coumadin for anticoagulation, hypertension, hyperlipidemia, who presented to the hospital with symptoms of chest and epigastric discomfort. Patient ruled in for acute coronary syndrome, EKG showed nonspecific changes but troponin came back to be abnormal. Troponins 1.9 , 1.2, 0.9. Since the patient was admitted to the hospital, he has had no further symptoms of chest discomfort. CTA of the chest was performed which did not reveal a pulmonary embolism, it did show small bilateral pleural effusions. Echocardiogram with Doppler study has been performed but is yet pending. Patient was seen and examined this morning, denies any chest discomfort, breathing overall is stable. We did have the AICD. Interrogated this morning, functioning appropriately. Blood pressure this morning 104/50 with a heart rate in the 80s to 90s, afebrile, 95% on room air. INR yesterday 2.3. We will decrease the aspirin 81 mg daily today, discontinue IV heparin. Continue losartan, Lanoxin and metoprolol. 12/08/2017 Patient seen and examined this morning, blood pressure this morning 88/43, heart rate in the 90s, 94% on room air. Patient was on 100 mg of metoprolol twice a day, we'll decrease this to 50 twice a day today. INR is 1.6. We will give the patient 5 mg of Coumadin today, from tomorrow resume home dose of 2 mg daily. 12/09/2017 Patient seen and examined this morning, feeling well overall, eager to get up ambulating. Blood pressure 112/50, heart rate in the 90s. 12/10/2017 Patient seen and examined this morning, blood pressure 122/57 after he received his medications, at noon today blood pressure 86/40. Asymptomatic, not dizzy or lightheaded. PT 14.4, INR 1.6. We will give an additional Coumadin 5 today. 12/12/2017 Patient was seen and examined this morning, had significant drop in blood pressure orthostatically. Hemoglobin down to 7.1 today. INR 2.6. Coumadin is currently on hold. We will decrease the dose of beta dacia and angiotensin dacia. Continue his other medications. Patient may require blood transfusion. We will continue to follow. 12/14/2017 Patient seen and examined this morning, denies any further bleeding. Consultation is in place with oncology. White blood cell count 0.8, hemoglobin 7.3, platelet count 65. Sodium 136, potassium 3.8, urine 21, creatinine 0.6. 12/15/2017 Patient seen and examined this morning, initially sitting up in chair, feels weak, mildly short of breath, denies any chest discomfort. White blood cell count 3.7 today, hemoglobin 7.3, platelet count 66. Sodium 136, potassium 3.7, BUN 14, creatinine 0.6. Objective - Vital Signs Vital signs: Vital Signs Temp 96.9 F L 12/15/17 12:00 Pulse 103 H 12/15/17 12:00 Resp 16 12/15/17 12:00 BP 116/58 12/15/17 12:00 Pulse Ox 94 L 12/15/17 12:00 Intake & Output 12/14/17 12/15/17 12/15/17 18:59 06:59 18:59 Intake Total 720 400 360 Output Total 950 450 500 Balance -230 -50 -140 Weight 70.5 kg Intake: IV 600 .9 600 Intake, IV Titration 400 Amount Sodium Chloride 0.9% 1, 400 000 ml @ 50 mls/hr IV . Q20H [facility] Rx#:[id number] Oral 120 360 Output: Urine 950 450 500 Other: Voiding Method Indwelling Catheter Indwelling Catheter Indwelling Catheter - Exam PHYSICAL EXAMINATION: HEENT: Head is atraumatic, normocephalic. Pupils equal, round. Neck is supple. There is no elevated jugular venous pressure. HEART EXAMINATION: Heart S1, S2 normal. No murmur or gallop heard. CHEST EXAMINATION: Lungs are clear to auscultation and precussion. No chest wall tenderness is noted on palpation or with deep breathing. ABDOMEN: Soft, nontender. Bowel sounds are heard. No organomegaly noted. EXTREMITIES: 2+ peripheral pulses with no evidence of peripheral edema and no calf tenderness noted. NEUROLOGIC patient is awake, alert and oriented -3. . - Labs CBC & Chem 7: 12/15/17 05:40 12/15/17 05:40 Labs: Abnormal Lab Results - Last 24 Hours (Table) 12/14/17 12/15/17 12/15/17 Range/Units 05:32 05:40 05:40 WBC 3.7 L (3.8-10.6) k/uL RBC 2.31 L (4.30-5.90) m/uL Hgb 7.3 L (13.0-17.5) gm/dL Hct 22.4 L (39.0-53.0) % RDW 19.7 H (11.5-15.5) % Plt Count 66 L (150-450) k/uL Lymphocytes # (Manual) 0.22 L (1.0-4.8) k/uL Sodium (137-145) mmol/L Creatinine (0.66-1.25) mg/dL Calcium (8.4-10.2) mg/dL Iron 19 L (65-175) ug/dL Iron Saturation 7.92 L (15.00-50.00) Total Protein (PEP) 4.6 L (6.2-8.2) g/dL Vitamin B12 149.0 L (200.0-944.0) pg/mL 12/15/17 Range/Units 05:40 WBC (3.8-10.6) k/uL RBC (4.30-5.90) m/uL Hgb (13.0-17.5) gm/dL Hct (39.0-53.0) % RDW (11.5-15.5) % Plt Count (150-450) k/uL Lymphocytes # (Manual) (1.0-4.8) k/uL Sodium 136 L (137-145) mmol/L Creatinine 0.63 L (0.66-1.25) mg/dL Calcium 7.6 L (8.4-10.2) mg/dL Iron (65-175) ug/dL Iron Saturation (15.00-50.00) Total Protein (PEP) (6.2-8.2) g/dL Vitamin B12 (200.0-944.0) pg/mL Microbiology - Last 24 Hours (Table) 12/12/17 01:53 Urine Culture - Final Urine,Catheterized Proteus mirabilis Assessment and Plan Plan: Assessment and plan #1 non-ST elevation HI, continue maximal medical therapy. Aspirin discontinued because of thrombocytopenia #2 known history of coronary artery disease with prior bypass surgery and PCI's. #3 ischemic cardio myopathy status post AICD implant. AICD was interrogated this morning, functioning appropriately. #4 hypertension #5 hyperlipidemia #6 anemia with evidence of melena stool #7 low white blood cell count and thrombocytopenia, hematology consulted Plan We will continue to hold Coumadin along with aspirin. When it is okay with hematology, we would like to resume aspirin 81 mg daily. DNP note has been reviewed, I agree with a documented findings and plan of care. Patient was seen and examined.
--- NOTE | 2017-12-15 18:02 | PN ---
PROGRESS NOTE DATE OF SERVICE: 12/15/2017 This 87-year-old gentleman who was admitted after acute non ST elevation myocardial infarction had multiple medical issues. The patient also had severe ischemic cardiomyopathy, complaining of generalized tiredness and weakness. Patient was also had episode of hypotension also. Multiple consultants are following the patient closely. Patient also had features of UTI also. PAST MEDICAL HISTORY: Reviewed. REVIEW OF SYSTEMS: CARDIOVASCULAR: As mentioned earlier. RESPIRATORY: As mentioned earlier. GI: No nausea. : No dysuria. NERVOUS SYSTEM: Mild diffuse weakness. CURRENT MEDICATIONS: 1. Aspirin 81 mg. 2. Lipitor 20 mg. 3. Cipro 500 mg b.i.d. 4. Vitamin B12 1000 mg b.i.d. 5. Lanoxin 125 mcg. 6. Colace 100 mg. 7. Filgrastim. 8. Xalatan. 9. Cozaar. 10.Lopressor. 11.Nitrostat. 12.Protonix. 13.Aldactone. PHYSICAL EXAM: Patient is alert, oriented x3. Pulse is 103, blood pressure 116/63, respirations 16, temperature 96.9, pulse ox 94% room air. HEENT: Conjunctivae normal. Oral mucosa moist. NECK: No jugular venous distention. No carotid bruit. No lymph node enlargement. CARDIOVASCULAR: S1, S2. No S3, no S4. RESPIRATORY: Breath sounds diminished in the bases. Bilateral scattered rhonchi and expiratory wheezing. A few crackles. ABDOMEN: Soft, nontender. No mass palpable. LEGS: No edema, no cyanosis. NERVOUS SYSTEM: Higher function as mentioned. Moves all four limbs. No focal motor deficits. LYMPHATICS: No lymphadenopathy in the neck, axillae, groin.. SKIN: No ulcer, rash or bleeding. LABS: WBC 3.2, hemoglobin 7.3, sodium 137, vitamin B12 is 149. ASSESSMENT: 1. Status post acute non ST elevation myocardial infarction, medical treatment. 2. History of coronary artery disease, CABG. 3. Ischemic cardiomyopathy. 4. Gait dysfunction. 5. Orthostatic hypotension. 6. Urinary retention. 7. Acute urinary tract infection. 8. Neutropenia and pancytopenia on filgrastim. 9. History of hypertension. 10.Hyperlipidemia. 11.History of dementia. 12.Paroxysmal atrial fibrillation. 13.CODE STATUS: FULL. 14.Mild hyponatremia. 15.Gait dysfunction. RECOMMENDATIONS AND DISCUSSION: I recommend to continue current management and symptomatic treatment. Otherwise at this time I recommend to monitor blood pressure closely. Orthostatic vitals. Continue the antibiotics. I would also recommend PT, OT evaluation and possible ECF rehab also. See orders for further details. Further recommendations to follow. DESHAWN / KESHAN: [id number] /
[2017-12-15] MEDS: ASPIRIN 81 MG PO SCH (18:08)
[2017-12-15] MEDS: FILGRASTIM-SNDZ 480 MCG/0.8 ML SYRINGE SQ SCH (18:14)
--- NOTE | 2017-12-15 18:14 | P.PN ---
Subjective Progress Note Date: 12/15/17 Principal diagnosis: Pancytopenia Patient seen and examined. No acute events overnight Objective - Vital Signs Vital signs: Vital Signs Temp 97.9 F 12/15/17 03:30 Pulse 101 H 12/15/17 03:30 Resp 18 12/15/17 03:30 BP 104/50 12/15/17 03:30 Pulse Ox 93 L 12/15/17 03:30 Intake & Output 12/14/17 12/15/17 12/15/17 18:59 06:59 18:59 Intake Total 720 400 Output Total 950 450 Balance -230 -50 Weight 70.5 kg Intake: IV 600 .9 600 Intake, IV Titration 400 Amount Sodium Chloride 0.9% 1, 400 000 ml @ 50 mls/hr IV . Q20H [facility] Rx#:[id number] Oral 120 Output: Urine 950 450 Other: Voiding Method Indwelling Catheter Indwelling Catheter - Constitutional General appearance: Present: cooperative, no acute distress - EENT Eyes: Present: PERRLA, poor dentition ENT: Present: NA/AT, normal oropharynx - Neck Neck: Present: normal ROM - Respiratory Respiratory: bilateral: CTA (No increased effort) - Cardiovascular Rhythm: regular - Gastrointestinal General gastrointestinal: Present: normal bowel sounds, soft - Integumentary Integumentary: Present: pale - Neurologic Neurologic: Present: CNII-XII intact - Musculoskeletal Musculoskeletal: Present: strength equal bilaterally - Psychiatric Psychiatric: Present: A&O x's 3, appropriate affect - Labs CBC & Chem 7: 12/15/17 05:40 12/15/17 05:40 Labs: Abnormal Lab Results - Last 24 Hours (Table) 12/14/17 12/15/17 12/15/17 Range/Units 05:32 05:40 05:40 WBC 3.7 L (3.8-10.6) k/uL RBC 2.31 L (4.30-5.90) m/uL Hgb 7.3 L (13.0-17.5) gm/dL Hct 22.4 L (39.0-53.0) % RDW 19.7 H (11.5-15.5) % Plt Count 66 L (150-450) k/uL Lymphocytes # (Manual) 0.22 L (1.0-4.8) k/uL Sodium 136 L (137-145) mmol/L Creatinine 0.63 L (0.66-1.25) mg/dL Calcium 7.6 L (8.4-10.2) mg/dL Iron 19 L (65-175) ug/dL Iron Saturation 7.92 L (15.00-50.00) Vitamin B12 149.0 L (200.0-944.0) pg/mL Microbiology - Last 24 Hours (Table) 12/12/17 01:53 Urine Culture - Final Urine,Catheterized Proteus mirabilis Assessment and Plan (1) GI bleeding Current Visit: Yes Status: Acute Code(s): K92.2 - GASTROINTESTINAL HEMORRHAGE, UNSPECIFIED SNOMED Code(s): 24973869 (2) Non-STEMI (non-ST elevated myocardial infarction) Current Visit: Yes Status: Acute Code(s): I21.4 - NON-ST ELEVATION (NSTEMI) MYOCARDIAL INFARCTION SNOMED Code(s): 452894814 (3) Pancytopenia Narrative/Plan: This is felt to be most likely multifactorial. The patient had some borderline cytopenias previously. 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 According to his family member was present at the bedside, during the winter the patient is quite inactive and generally has poor appetite and lose weight. Pancytopenia workup so far also shows B12 deficiency. In addition the patient had additional stress due to possible pneumonia, acute AK, and GI bleed. Beta-lactam antibiotics may also have played a role - The patient will be started on B12 supplementation parenterally. He will also continue on cell growth factors. - Await results of ordered pancytopenia labs. Additional workup will be ordered. - Continue monitoring of blood count with supportive treatment. - Depending on the patient's response with the above measures, and resolution of his acute conditions, additional recommendations will be forthcoming - His platelet counts are above 50,000, and therefore in a safe range, even for anticoagulation or invasive procedures Current Visit: Yes Status: Acute Code(s): D61.818 - OTHER PANCYTOPENIA SNOMED Code(s): 851813728 (4) Warfarin-induced coagulopathy Narrative/Plan: Acute Blood Loss occurred when the patient was on anticoagulation. As noted he was on IV heparin and then subsequently was being transitioned to Coumadin. However INR was never supratherapeutic and the patient has been on Coumadin chronically. Agree with blood transfusion, which has stabilize his hemoglobin. Continue to monitor with additional transfusions as needed. Given the clinical presentation, I would recommend that the patient should have an EGD down the line. If the hemoglobin stable, this can be scheduled, once WBC improved into a safe range which would reduce the risk of the procedure. Current Visit: Yes Status: Acute Code(s): D68.32 - HEMORRHAGIC DISORD D/T EXTRINSIC CIRCULATING ANTICOAGULANTS; T45.515A - ADVERSE EFFECT OF ANTICOAGULANTS, INITIAL ENCOUNTER SNOMED Code(s): 17865129 Plan: 1. Pancytopenia: - If Ferritin below 150 will be resonable to give IV Iron Supplementation - Continue to Monitor CBC daily
[2017-12-15] MEDS: ATORVASTATIN 20 MG TAB PO SCH (20:11)
[2017-12-15] MEDS: LATANOPROST 0.005% OPHTH DROPS 2.5 ML BTL BOTH EYES SCH (20:11)
--- NOTE | 2017-12-15 22:46 | PN ---
PROGRESS NOTE DATE OF SERVICE: 12/15/2017. REASON FOR FOLLOW UP: urinary tract infection. INTERVAL HISTORY: The patient is afebrile. He seems to be more awake, alert. The patient denies having any chest pain, shortness of breath, cough, no abdominal pain, or diarrhea, did have Escudero catheter for urine retention. On examination on admission blood pressure 101/46, pulse 93, temperature 97.1. He is 95% on room air. General description is an elderly male up in the chair in no distress. Respiratory system: Unlabored breathing, clear to auscultation anteriorly. Heart S1, S2. Regular rate and rhythm. Abdomen soft, no tenderness. LABS: Hemoglobin is 7.3, white count 3.7 with a BUN of 14, creatinine 0.63. DIAGNOSTIC IMPRESSION AND PLAN: 1. Patient with Proteus mirabilis urinary tract infection, currently on oral Cipro to continue for about 7 days to finish a course of therapy. 2. Patient with leukopenia/pancytopenia, multifactorial with white count improving with addition of the filgrastim. Continue repeat CBC tomorrow. 3. Continue supportive care. MMODL / IJN: [id number] /
[2017-12-16] MEDS: SODIUM CHLORIDE 0.9% 1,000 ML IV SCH ×3 (06:17→22:38)
[2017-12-16 07:07] LABS: Anion Gap 7 mmol/L; Blood Urea Nitrogen 14 mg/dL (9-20); Calcium 7.7 mg/dL (8.4-10.2); Carbon Dioxide 25 mmol/L (22-30); Chloride 105 mmol/L (98-107); Glucose 78 mg/dL (74-99); Potassium 3.9 mmol/L (3.5-5.1); Sodium 137 mmol/L (137-145)
--- NOTE | 2017-12-16 08:11 | CDI ---
Last Revision, July 2017 Documentation Clarification Form Date: 12/16/17 08:08 From: Gwen Santiago Admit Date: 12/06/2017 12:09:00 AM Patient Name: Oscar Bernstein Visit Number: [id number] ATTENTION: The Clinical Documentation Specialists (CDI) and [facility] Coding Staff appreciate your assistance in clarifying documentation. Please respond to the clarification below the line at the bottom and electronically sign. The CDI & [facility] Coding staff will review the response and follow-up if needed. Please note: Queries are made part of the Legal Health Record. If you have any questions, please contact the author of this message via ITS. Dr. Zhao Tineo, History/Risk Factors: cad, cabg , angina, mi, x smoker, ischemic cardiomyopathy, paroxysmal a fib presented this admission with NSTEMI Clinical Indicators: WBC on admission: Lactic acid: 4.1, 12/15 3.7 Urine Gram negative bacilli/proteus mirabilis Chest CTA: correlate for chf exacerbation, cardiomegaly with small bilateral pleural effusions, moderate underlying emphysematous change suspicious reticulonodular lingular infiltrate correlate for pneumonia Vitals signs on admission: T 97.6, P 87, R 20, 104/51 RA Other Clinical Indicators: Treatment: ID Consult: Dr Buenrostro Antibiotics: IV Ceftriaxone, IV Ciprofloxacin IV Bolus: x1 In your professional opinion, please clarify if these findings signify one of the following conditions, whether the condition is POA, and cause, if known: Sepsis ruled in Sepsis ruled out Other, please specify Unable to determine Present on Admission: Yes No Please continue to document in your progress notes, under the line below and discharge summary in order to capture severity of illness and risk of mortality. Include clinical findings that support your diagnosis. Unable to determine MTDD
[2017-12-16] MEDS: SPIRONOLACTONE 25 MG TAB PO SCH (09:31)
[2017-12-16] MEDS: CIPROFLOXACIN HCL 500 MG TAB PO SCH ×2 (09:31→22:39)
[2017-12-16] MEDS: DOCUSATE 100 MG CAP PO SCH ×2 (09:32→22:39)
[2017-12-16] MEDS: ASPIRIN 81 MG PO SCH (09:32)
[2017-12-16] MEDS: DIGOXIN 125 MCG TAB PO SCH (09:32)
[2017-12-16] MEDS: METOPROLOL TARTRATE 25 MG TAB PO SCH ×2 (09:32→22:38)
[2017-12-16] MEDS: PANTOPRAZOLE 40 MG/10 ML VIAL IVP SCH (09:33)
[2017-12-16 11:02] LABS: Anisocytosis Slight; HCT 20.8 % (39.0-53.0); Hypochromasia Moderate; MCH 31.7 pg (25.0-35.0); MCHC 32.5 g/dL (31.0-37.0); MCV 97.6 fL (80.0-100.0); Macrocytosis Slight; Mean Platelet Volume 14.2; Poikilocytosis Moderate; RBC 2.13 m/uL (4.30-5.90); RDW 19.9 % (11.5-15.5); WBC 5.9 k/uL (3.8-10.6)
[2017-12-16 11:06] LABS: HGB 6.7 gm/dL (13.0-17.5); Platelet Count 59 k/uL (150-450)
[2017-12-16] MEDS: CYANOCOBALAMIN 1,000 MCG/ML 1 ML VIAL IM SCH (11:59)
[2017-12-16 12:09] LABS: Anisocytosis Slight; Basophils % (A) 0 %; Eosinophils % (A) 0 %; HCT 22.7 % (39.0-53.0); HGB 7.3 gm/dL (13.0-17.5); Hypochromasia Moderate; Lymphocytes # (A) 0.2 k/uL (1.0-4.8); Lymphocytes % (A) 3 %; MCH 30.9 pg (25.0-35.0); MCV 96.6 fL (80.0-100.0); Macrocytosis Slight; Monocytes # (A) 0.3 k/uL (0-1.0); Monocytes % (A) 4 %; Neutrophils # (A) 7.1 k/uL (1.3-7.7); Neutrophils % (A) 91 %; Poikilocytosis Moderate; RBC 2.35 m/uL (4.30-5.90); WBC 7.9 k/uL (3.8-10.6)
[2017-12-16 12:15] LABS: Platelet Count 58 k/uL (150-450)
--- NOTE | 2017-12-16 14:00 | P.PN ---
Subjective Progress Note Date: 12/16/17 Principal diagnosis: Pancytopenia Patient seen and examined. No acute events overnight. Hemoglobin 6.7 today, ferritin resulted less than 100. Objective - Vital Signs Vital signs: Vital Signs Temp 97 F L 12/16/17 09:30 Pulse 117 H 12/16/17 09:30 Resp 20 12/16/17 09:30 BP 110/43 12/16/17 09:30 Pulse Ox 96 12/16/17 09:30 Intake & Output 12/15/17 12/16/17 12/16/17 18:59 06:59 18:59 Intake Total 360 625 340 Output Total 750 475 Balance -390 150 340 Weight 63.5 kg Intake: Intake, IV Titration 525 Amount Sodium Chloride 0.9% 1, 525 000 ml @ 50 mls/hr IV . Q20H [facility] Rx#:[id number] Oral 360 100 340 Output: Urine 750 475 Other: Voiding Method Indwelling Catheter Indwelling Catheter Indwelling Catheter - Constitutional General appearance: Present: cooperative, no acute distress - EENT Eyes: Present: EOMI, dentition normal ENT: Present: NA/AT, normal oropharynx - Neck Details: Supple, Trachea Midline Neck: Present: normal ROM - Respiratory Respiratory: bilateral: CTA (No increased effort.) - Cardiovascular Heart rate: 118 Rhythm: regular - Gastrointestinal General gastrointestinal: Present: soft - Integumentary Integumentary: Present: pale - Neurologic Neurologic: Present: CNII-XII intact - Musculoskeletal Musculoskeletal: Present: generalized weakness - Psychiatric Psychiatric: Present: A&O x's 3, appropriate affect, intact judgment & insight - Labs CBC & Chem 7: 12/16/17 11:39 12/16/17 06:15 Labs: Abnormal Lab Results - Last 24 Hours (Table) 12/15/17 12/16/17 12/16/17 Range/Units 05:40 06:15 06:15 RBC 2.13 L (4.30-5.90) m/uL Hgb 6.7 L* (13.0-17.5) gm/dL Hct 20.8 L (39.0-53.0) % RDW 19.9 H (11.5-15.5) % Plt Count 59 L (150-450) k/uL Creatinine 0.60 L (0.66-1.25) mg/dL Calcium 7.7 L (8.4-10.2) mg/dL Total Protein (PEP) 4.6 L (6.2-8.2) g/dL Free [place] LC, Quant 4.02 H (0.33-1.94) mg/dL Free Lambda LC, Quant 4.53 H (0.57-2.63) mg/dL Assessment and Plan (1) GI bleeding Current Visit: Yes Status: Acute Code(s): K92.2 - GASTROINTESTINAL HEMORRHAGE, UNSPECIFIED SNOMED Code(s): 29489610 (2) Non-STEMI (non-ST elevated myocardial infarction) Current Visit: Yes Status: Acute Code(s): I21.4 - NON-ST ELEVATION (NSTEMI) MYOCARDIAL INFARCTION SNOMED Code(s): 872929879 (3) Pancytopenia Narrative/Plan: This is felt to be most likely multifactorial. The patient had some borderline cytopenias previously. 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 According to his family member was present at the bedside, during the winter the patient is quite inactive and generally has poor appetite and lose weight. Pancytopenia workup so far also shows B12 deficiency. In addition the patient had additional stress due to possible pneumonia, acute [place], and GI bleed. Beta-lactam antibiotics may also have played a role - The patient will be started on B12 supplementation parenterally. He will also continue on cell growth factors. - Await results of ordered pancytopenia labs. Additional workup will be ordered. - Continue monitoring of blood count with supportive treatment. - Depending on the patient's response with the above measures, and resolution of his acute conditions, additional recommendations will be forthcoming - His platelet counts are above 50,000, and therefore in a safe range, even for anticoagulation or invasive procedures Current Visit: Yes Status: Acute Code(s): D61.818 - OTHER PANCYTOPENIA SNOMED Code(s): 897495773 (4) Warfarin-induced coagulopathy Narrative/Plan: Acute Blood Loss occurred when the patient was on anticoagulation. As noted he was on IV heparin and then subsequently was being transitioned to Coumadin. However INR was never supratherapeutic and the patient has been on Coumadin chronically. Agree with blood transfusion, which has stabilize his hemoglobin. Continue to monitor with additional transfusions as needed. Given the clinical presentation, I would recommend that the patient should have an EGD down the line. If the hemoglobin stable, this can be scheduled, once WBC improved into a safe range which would reduce the risk of the procedure. Current Visit: Yes Status: Acute Code(s): D68.32 - HEMORRHAGIC DISORD D/T EXTRINSIC CIRCULATING ANTICOAGULANTS; T45.515A - ADVERSE EFFECT OF ANTICOAGULANTS, INITIAL ENCOUNTER SNOMED Code(s): 34482378 Plan: Assessment and Recommendatons. 1. Pancytopenia: Anemia - If Ferritin below 150 will be resonable to give IV Iron Supplementation - IV Iron daily x3 days ordered to start after transfusion today. - Hemoglobin is 6.7 today, agree with PRBC transfusion - Continue to Monitor CBC daily I have completed the full history and physical of this patient, discussed and agree with dictation above documented by Sydni Dobbs NP. Documented as a scribe
[2017-12-16 14:04] VITALS: BMI 19.5
--- NOTE | 2017-12-16 15:07 | P.PN ---
Subjective Progress Note Date: 12/16/17 This is a pleasant 87-year-old gentleman who follows regularly with Dr. Enrike Gilliland in the office. He has a known history of coronary artery disease with prior bypass surgery, prior PCI's, ischemic cardiomyopathy prior AICD, paroxysmal atrial fibrillation, on Coumadin for anticoagulation, hypertension, hyperlipidemia, who presented to the hospital with symptoms of chest and epigastric discomfort. Patient ruled in for acute coronary syndrome, EKG showed nonspecific changes but troponin came back to be abnormal. Troponins 1.9 , 1.2, 0.9. Since the patient was admitted to the hospital, he has had no further symptoms of chest discomfort. CTA of the chest was performed which did not reveal a pulmonary embolism, it did show small bilateral pleural effusions. Echocardiogram with Doppler study has been performed but is yet pending. Patient was seen and examined this morning, denies any chest discomfort, breathing overall is stable. We did have the AICD. Interrogated this morning, functioning appropriately. Blood pressure this morning 104/50 with a heart rate in the 80s to 90s, afebrile, 95% on room air. INR yesterday 2.3. We will decrease the aspirin 81 mg daily today, discontinue IV heparin. Continue losartan, Lanoxin and metoprolol. 12/08/2017 Patient seen and examined this morning, blood pressure this morning 88/43, heart rate in the 90s, 94% on room air. Patient was on 100 mg of metoprolol twice a day, we'll decrease this to 50 twice a day today. INR is 1.6. We will give the patient 5 mg of Coumadin today, from tomorrow resume home dose of 2 mg daily. 12/09/2017 Patient seen and examined this morning, feeling well overall, eager to get up ambulating. Blood pressure 112/50, heart rate in the 90s. 12/10/2017 Patient seen and examined this morning, blood pressure 122/57 after he received his medications, at noon today blood pressure 86/40. Asymptomatic, not dizzy or lightheaded. PT 14.4, INR 1.6. We will give an additional Coumadin 5 today. 12/12/2017 Patient was seen and examined this morning, had significant drop in blood pressure orthostatically. Hemoglobin down to 7.1 today. INR 2.6. Coumadin is currently on hold. We will decrease the dose of beta dacia and angiotensin dacia. Continue his other medications. Patient may require blood transfusion. We will continue to follow. 12/14/2017 Patient seen and examined this morning, denies any further bleeding. Consultation is in place with oncology. White blood cell count 0.8, hemoglobin 7.3, platelet count 65. Sodium 136, potassium 3.8, urine 21, creatinine 0.6. 12/15/2017 Patient seen and examined this morning, initially sitting up in chair, feels weak, mildly short of breath, denies any chest discomfort. White blood cell count 3.7 today, hemoglobin 7.3, platelet count 66. Sodium 136, potassium 3.7, BUN 14, creatinine 0.6. 12/16/2017 Patient seen and examined today, looking much better overall. Lab data consistently improving. Objective - Vital Signs Vital signs: Vital Signs Temp 96.9 F L 12/16/17 11:52 Pulse 84 12/16/17 11:52 Resp 16 12/16/17 11:52 BP 94/47 12/16/17 11:52 Pulse Ox 94 L 12/16/17 11:52 Intake & Output 12/15/17 12/16/17 12/16/17 18:59 06:59 18:59 Intake Total 360 625 980 Output Total 750 475 Balance -390 150 980 Weight 63.5 kg 63.5 kg Intake: IV 400 .9 400 Intake, IV Titration 525 Amount Sodium Chloride 0.9% 1, 525 000 ml @ 50 mls/hr IV . Q20H [facility] Rx#:[id number] Oral 360 100 580 Output: Urine 750 475 Other: Voiding Method Indwelling Catheter Indwelling Catheter Indwelling Catheter - Exam PHYSICAL EXAMINATION: HEENT: Head is atraumatic, normocephalic. Pupils equal, round. Neck is supple. There is no elevated jugular venous pressure. HEART EXAMINATION: Heart S1, S2 normal. No murmur or gallop heard. CHEST EXAMINATION: Lungs are clear to auscultation and precussion. No chest wall tenderness is noted on palpation or with deep breathing. ABDOMEN: Soft, nontender. Bowel sounds are heard. No organomegaly noted. EXTREMITIES: 2+ peripheral pulses with no evidence of peripheral edema and no calf tenderness noted. NEUROLOGIC patient is awake, alert and oriented -3. . - Labs CBC & Chem 7: 12/16/17 11:39 12/16/17 06:15 Labs: Abnormal Lab Results - Last 24 Hours (Table) 12/15/17 12/16/17 12/16/17 Range/Units 05:40 06:15 06:15 RBC 2.13 L (4.30-5.90) m/uL Hgb 6.7 L* (13.0-17.5) gm/dL Hct 20.8 L (39.0-53.0) % RDW 19.9 H (11.5-15.5) % Plt Count 59 L (150-450) k/uL Lymphocytes # (1.0-4.8) k/uL Creatinine 0.60 L (0.66-1.25) mg/dL Calcium 7.7 L (8.4-10.2) mg/dL Free [place] LC, Quant 4.02 H (0.33-1.94) mg/dL Free Lambda LC, Quant 4.53 H (0.57-2.63) mg/dL Crossmatch 12/16/17 12/16/17 Range/Units 11:39 13:25 RBC 2.35 L (4.30-5.90) m/uL Hgb 7.3 L (13.0-17.5) gm/dL Hct 22.7 L (39.0-53.0) % RDW 20.0 H (11.5-15.5) % Plt Count 58 L (150-450) k/uL Lymphocytes # 0.2 L (1.0-4.8) k/uL Creatinine (0.66-1.25) mg/dL Calcium (8.4-10.2) mg/dL Free [place] LC, Quant (0.33-1.94) mg/dL Free Lambda LC, Quant (0.57-2.63) mg/dL Crossmatch See Detail Assessment and Plan Plan: Assessment and plan #1 non-ST elevation [place], continue maximal medical therapy. Aspirin discontinued because of thrombocytopenia #2 known history of coronary artery disease with prior bypass surgery and PCI's. #3 ischemic cardio myopathy status post AICD implant. AICD was interrogated this morning, functioning appropriately. #4 hypertension #5 hyperlipidemia #6 anemia with evidence of melena stool #7 low white blood cell count and thrombocytopenia, hematology consulted Plan Patient has been resumed on a baby aspirin daily, we'll follow this patient with you now on an as-needed basis only, please don't hesitate to call with any questions. DNP note has been reviewed, I agree with a documented findings and plan of care. Patient was seen and examined.
[2017-12-16] MEDS ORDERED: FUROSEMIDE 10 MG/ML 2 ML VIAL IV STA (15:40)
[2017-12-16] MEDS: LOSARTAN 25 MG TAB PO SCH (16:19)
--- NOTE | 2017-12-16 18:23 | P.PN ---
Subjective Progress Note Date: 12/16/17 Progress note being dictated for Dr. Tineo. Interval history: This is an 87-year-old gentleman admitted with acute non-STEMI , severe ischemic cardiomyopathy, symptomatic anemia with generalized fatigue, hypotension, acute UTI multiple other medical issues. Borderline hypotensive. Hemoglobin 6.7 .Recent currently receiving transfusion of packed RBCs. Review of systems: CONSTITUTIONAL: No fever, positive fatigue HEENT: No recent visual problems or hearing problems. Denied any sore throat. CARDIOVASCULAR: No chest pain, no palpitations, no syncope. PULMONARY: No shortness of breath, no cough, no hemoptysis. GASTROINTESTINAL: No diarrhea, no nausea, no vomiting, no abdominal pain. Normoactive bowel sounds. NEUROLOGICAL: No headaches, no weakness, no numbness. HEMATOLOGICAL: Denies any bleeding or petechiae. GENITOURINARY: Denies any burning micturition, frequency, or urgency. MUSCULOSKELETAL/RHEUMATOLOGICAL: Denies any joint pain, swelling, or any muscle pain. ENDOCRINE: Denies any polyuria or polydipsia. PSYCHIATRIC: No anxiety, no depression The rest of the 14 point review of systems is negative Active Medications Generic Name Dose Route Start Last Admin Trade Name Freq PRN Reason Stop Dose Admin Aspirin 81 mg 12/15/17 13:30 12/16/17 09:32 Aspirin PO 81 mg DAILY MARCIA Administration Atorvastatin Calcium 20 mg 12/06/17 21:00 12/15/17 20:11 Lipitor PO 20 mg HS MARCIA Administration Ciprofloxacin 500 mg 12/13/17 21:00 12/16/17 09:31 Cipro PO 500 mg BID MARCIA Administration Cyanocobalamin 1,000 mcg 12/14/17 18:30 12/16/17 11:59 Vitamin B-12 IM 12/20/17 09:01 1,000 mcg DAILY MARCIA Administration Digoxin 125 mcg 12/07/17 09:00 12/16/17 09:32 Lanoxin PO 125 mcg DAILY MARCIA Administration Docusate Sodium 100 mg 12/11/17 15:15 12/16/17 09:32 Colace PO 100 mg BID MARCIA Administration Filgrastim 480 mcg 12/14/17 18:30 12/15/17 18:14 Zarxio SQ 480 mcg Q24H [facility]IA Administration Sodium Chloride 1,000 mls @ 50 mls/hr 12/14/17 15:15 12/16/17 11:58 Saline 0.9% IV 50 mls/hr .Q20H MARCIA Administration Ferric Sodium Gluconate 125 mg 110 mls @ 100 mls/hr 12/17/17 09:00 / Sodium Chloride IVPB 12/19/17 10:05 DAILY MARCIA Latanoprost 1 drops 12/06/17 21:00 12/15/17 20:11 Xalatan 0.005% BOTH EYES 1 drops HS MARCIA Administration Losartan Potassium 12.5 mg 12/13/17 09:00 12/16/17 16:19 Cozaar PO 12.5 mg DAILY MARCIA Administration Metoprolol Tartrate 25 mg 12/12/17 21:00 12/16/17 09:32 Lopressor PO 25 mg BID MARCIA Administration Nitroglycerin 0.4 mg 12/06/17 00:09 Nitrostat SUBLINGUAL Q5M PRN Chest Pain Pantoprazole Sodium 40 mg 12/13/17 09:00 12/16/17 09:33 Protonix IVP 40 mg DAILY MARCIA Administration Spironolactone 25 mg 12/08/17 14:30 12/16/17 09:31 Aldactone PO 25 mg DAILY MARCIA Administration Objective - Vital Signs Vital signs: Vital Signs Temp 96.4 F L 12/16/17 16:16 Pulse 87 12/16/17 16:16 Resp 20 12/16/17 16:16 BP 116/53 12/16/17 16:16 Pulse Ox 96 12/16/17 16:16 Intake & Output 12/15/17 12/16/17 12/16/17 18:59 06:59 18:59 Intake Total 360 625 980 Output Total 750 475 200 Balance -390 150 780 Weight 63.5 kg 63.5 kg Intake: IV 400 .9 400 Intake, IV Titration 525 Amount Sodium Chloride 0.9% 1, 525 000 ml @ 50 mls/hr IV . Q20H [facility] Rx#:[id number] Oral 360 100 580 Blood Product 0 Rc As-3 Unit 0 [id number] Output: Urine 750 475 200 Other: Voiding Method Indwelling Catheter Indwelling Catheter Indwelling Catheter - Exam PHYSICAL EXAM: VITAL SIGNS: [As above] GENERAL: Sitting up in bed, no acute distress HEENT: Conjunctivae normal. eyes normal. Hard of hearing NECK: No JVD. No thyroid enlargement. No LNs CARDIOVASCULAR: S1, S2 muffled. No murmur RESPIRATION: Breath sounds diminished in the bases. No rhonchi, fine bibasilar crackles. ABDOMEN: Soft, nontender . No guarding. no masses palpable. Bowel sounds heard. LEGS: No edema. no swelling PSYCHIATRY: Alert and oriented -3, mood and affect normal. NERVOUS SYSTEM: Cranial N 2-12 grossly normal. Moves all 4 limbs. Diffuse weakness No focal deficits. Skin: no ulcer no rash Joints: No active swelling. No inflammation. Lymphatic system. No LN neck axilla or groin. - Labs CBC & Chem 7: 12/16/17 11:39 12/16/17 06:15 Labs: Abnormal Lab Results - Last 24 Hours (Table) 12/16/17 12/16/17 12/16/17 Range/Units 06:15 06:15 11:39 RBC 2.13 L 2.35 L (4.30-5.90) m/uL Hgb 6.7 L* 7.3 L (13.0-17.5) gm/dL Hct 20.8 L 22.7 L (39.0-53.0) % RDW 19.9 H 20.0 H (11.5-15.5) % Plt Count 59 L 58 L (150-450) k/uL Lymphocytes # 0.2 L (1.0-4.8) k/uL Creatinine 0.60 L (0.66-1.25) mg/dL Calcium 7.7 L (8.4-10.2) mg/dL Crossmatch 12/16/17 Range/Units 13:25 RBC (4.30-5.90) m/uL Hgb (13.0-17.5) gm/dL Hct (39.0-53.0) % RDW (11.5-15.5) % Plt Count (150-450) k/uL Lymphocytes # (1.0-4.8) k/uL Creatinine (0.66-1.25) mg/dL Calcium (8.4-10.2) mg/dL Crossmatch See Detail Assessment and Plan Assessment: 1. [ Acute non-STEMI, medical treatment]. 2. [ CAD, history of CABG]. 3. [ Ischemic cardiomyopathy]. 4. [ Orthostatic hypotension]. 5. [ Gait dysfunction]. 6. [ Urinary retention]. 7. [ Acute UTI with Proteus mirabilis]. 8.. Neutropenia and pancytopenia on filgrastim 9. Paroxysmal atrial fibrillation Plan: Continue on current medication regime ,monitoring and symptomatic treatment.iron added to med regime .Hemoglobin 6.7, 2 units packed RBCs ordered with Lasix in between. Close monitoring of hemoglobin with repeat labs ordered for a.m. Subacute rehab at discharge; [facility]. The impression and plan of care has been dictated as directed. : I performed a history and examination of this patient, discussed the same with the dictator. I agree with the dictator's note ,documented as a scribe. Any additional findings or plans will be noted.
[2017-12-16] MEDS: FILGRASTIM-SNDZ 480 MCG/0.8 ML SYRINGE SQ SCH (18:51)
[2017-12-16] MEDS: FERROUS SULFATE 325 MG TAB PO SCH (21:30)
--- NOTE | 2017-12-16 21:45 | PN ---
PROGRESS NOTE DATE OF SERVICE: 12/16/2017 REASON FOR FOLLOWUP: Proteus mirabilis UTI. INTERVAL HISTORY: The patient is afebrile. He seems to be more awake and alert. Denies having any chest pain, shortness of breath or cough. No abdominal pain or diarrhea. EXAMINATION: Blood pressure 124/57, pulse of 93, temperature 96.6. General description is an elderly male lying in bed in no distress. RESPIRATORY SYSTEM: Unlabored breathing. Clear to auscultation anteriorly. HEART: S1, S2. Regular rate and rhythm. ABDOMEN: Soft. No tenderness. EXTREMITIES: No edema of feet. LABS: White count up to 7.9, hemoglobin 7.3. Creatinine 0.60. DIAGNOSTIC IMPRESSION AND PLAN: Patient with Proteus mirabilis urinary tract infection, currently on oral Cipro, continue for 1 more week to finish a course of therapy. Continue supportive care. MMODL / IJN: [id number] /
[2017-12-16] MEDS: LATANOPROST 0.005% OPHTH DROPS 2.5 ML BTL BOTH EYES SCH (22:38)
[2017-12-16] MEDS: ATORVASTATIN 20 MG TAB PO SCH (22:39)
[2017-12-17 00:39] VITALS: RESP 18
[2017-12-17 06:04] LABS: Anion Gap 7 mmol/L; Blood Urea Nitrogen 11 mg/dL (9-20); Calcium 7.7 mg/dL (8.4-10.2); Carbon Dioxide 26 mmol/L (22-30); Chloride 103 mmol/L (98-107); Glucose 82 mg/dL (74-99); Potassium 3.7 mmol/L (3.5-5.1); Sodium 136 mmol/L (137-145)
[2017-12-17 06:27] LABS: Anisocytosis Slight; Basophils % (A) 0 %; Eosinophils % (A) 0 %; HCT 28.4 % (39.0-53.0); Hypochromasia Slight; Lymphocytes # (A) 0.3 k/uL (1.0-4.8); Lymphocytes % (A) 3 %; MCH 31.4 pg (25.0-35.0); MCHC 33.6 g/dL (31.0-37.0); MCV 93.4 fL (80.0-100.0); Macrocytosis Slight; Mean Platelet Volume 14.1; Monocytes # (A) 0.3 k/uL (0-1.0); Monocytes % (A) 3 %; Neutrophils # (A) 10.5 k/uL (1.3-7.7); Neutrophils % (A) 93 %; Poikilocytosis Moderate; RBC 3.04 m/uL (4.30-5.90); RDW 19.8 % (11.5-15.5); WBC 11.4 k/uL (3.8-10.6)
[2017-12-17 06:35] LABS: HGB 9.5 gm/dL (13.0-17.5)
[2017-12-17 06:39] LABS: Platelet Count 50 k/uL (150-450)
[2017-12-17 07:31] LABS: Albumin 2.42 g/dL (3.80-4.90)
[2017-12-17] MEDS: DIGOXIN 125 MCG TAB PO SCH (08:34)
[2017-12-17] MEDS: CIPROFLOXACIN HCL 500 MG TAB PO SCH (08:34)
[2017-12-17] MEDS: DOCUSATE 100 MG CAP PO SCH (08:34)
[2017-12-17] MEDS: CYANOCOBALAMIN 1,000 MCG/ML 1 ML VIAL IM SCH (08:34)
[2017-12-17] MEDS: ASPIRIN 81 MG PO SCH (08:34)
[2017-12-17] MEDS: PANTOPRAZOLE 40 MG/10 ML VIAL IVP SCH (08:35)
[2017-12-17] MEDS: METOPROLOL TARTRATE 25 MG TAB PO SCH (08:35)
[2017-12-17] MEDS: SPIRONOLACTONE 25 MG TAB PO SCH (08:35)
[2017-12-17] MEDS: LOSARTAN 25 MG TAB PO SCH (08:35)
[2017-12-17 08:43] VITALS: TEMP 96.9
[2017-12-17] MEDS ORDERED: SODIUM FERRIC GLUCONAT-SUCROSE 125 MG in SODIUM CHLORIDE 0.9% 100 ML IVPB SCH (09:00)
--- NOTE | 2017-12-17 10:52 | P.PN ---
Subjective Progress Note Date: 12/17/17 Principal diagnosis: Pancytopenia Patient seen and examined. No acute events overnight. Hemoglobin 9.5 after two units of PRBC yesterday. He is currently receiving iron infusion. No signs of bleeding. Objective - Vital Signs Vital signs: Vital Signs Temp 96.9 F L 12/17/17 08:00 Pulse 88 12/17/17 08:00 Resp 18 12/17/17 04:00 BP 108/56 12/17/17 08:00 Pulse Ox 94 L 12/17/17 08:00 Intake & Output 12/16/17 12/17/17 12/17/17 18:59 06:59 18:59 Intake Total 1650 310 360 Output Total 200 1875 Balance 1450 -1565 360 Weight 63.5 kg 68.5 kg Intake: IV 400 .9 400 Oral 940 360 Blood Product 310 310 Rc As-3 Unit 310 [id number] Rc As-3 Unit 310 [id number] Output: Urine 200 1875 Other: Voiding Method Indwelling Catheter Indwelling Catheter Indwelling Catheter # Voids 3 - Constitutional General appearance: Present: cooperative, no acute distress - EENT Eyes: Present: EOMI, poor dentition ENT: Present: hard of hearing, NA/AT - Neck Details: Supple, Trachea Midline Neck: Present: normal ROM - Respiratory Respiratory: bilateral: CTA (No increased effort) - Cardiovascular Rhythm: regular Heart sounds: normal: S1, S2 - Gastrointestinal General gastrointestinal: Present: normal bowel sounds, soft - Integumentary Integumentary: Present: pale - Neurologic Neurologic: Present: CNII-XII intact - Musculoskeletal Musculoskeletal: Present: generalized weakness, strength equal bilaterally - Psychiatric Psychiatric: Present: A&O x's 3, appropriate affect - Labs CBC & Chem 7: 12/17/17 05:26 12/17/17 05:26 Labs: Abnormal Lab Results - Last 24 Hours (Table) 12/15/17 12/16/17 12/16/17 Range/Units 05:40 06:15 11:39 WBC (3.8-10.6) k/uL RBC 2.13 L 2.35 L (4.30-5.90) m/uL Hgb 6.7 L* 7.3 L (13.0-17.5) gm/dL Hct 20.8 L 22.7 L (39.0-53.0) % RDW 19.9 H 20.0 H (11.5-15.5) % Plt Count 59 L 58 L (150-450) k/uL Neutrophils # (1.3-7.7) k/uL Lymphocytes # 0.2 L (1.0-4.8) k/uL Sodium (137-145) mmol/L Creatinine (0.66-1.25) mg/dL Calcium (8.4-10.2) mg/dL Albumin (PEP) 2.42 L (3.80-4.90) g/dL Kjbqo-1-Acytlfvin 0.59 L (0.60-1.00) g/dL Crossmatch 12/16/17 12/17/17 12/17/17 Range/Units 13:25 05:26 05:26 WBC 11.4 H (3.8-10.6) k/uL RBC 3.04 L (4.30-5.90) m/uL Hgb 9.5 L D (13.0-17.5) gm/dL Hct 28.4 L (39.0-53.0) % RDW 19.8 H (11.5-15.5) % Plt Count 50 L* (150-450) k/uL Neutrophils # 10.5 H (1.3-7.7) k/uL Lymphocytes # 0.3 L (1.0-4.8) k/uL Sodium 136 L (137-145) mmol/L Creatinine 0.60 L (0.66-1.25) mg/dL Calcium 7.7 L (8.4-10.2) mg/dL Albumin (PEP) (3.80-4.90) g/dL Lwzig-6-Caelvmtnd (0.60-1.00) g/dL Crossmatch See Detail Assessment and Plan (1) GI bleeding Current Visit: Yes Status: Acute Code(s): K92.2 - GASTROINTESTINAL HEMORRHAGE, UNSPECIFIED SNOMED Code(s): 26524764 (2) Non-STEMI (non-ST elevated myocardial infarction) Current Visit: Yes Status: Acute Code(s): I21.4 - NON-ST ELEVATION (NSTEMI) MYOCARDIAL INFARCTION SNOMED Code(s): 136420159 (3) Pancytopenia Narrative/Plan: This is felt to be most likely multifactorial. The patient had some borderline cytopenias previously. 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 According to his family member was present at the bedside, during the winter the patient is quite inactive and generally has poor appetite and lose weight. Pancytopenia workup so far also shows B12 deficiency. In addition the patient had additional stress due to possible pneumonia, acute [place], and GI bleed. Beta-lactam antibiotics may also have played a role - The patient will be started on B12 supplementation parenterally. He will also continue on cell growth factors. - Await results of ordered pancytopenia labs. Additional workup will be ordered. - Continue monitoring of blood count with supportive treatment. - Depending on the patient's response with the above measures, and resolution of his acute conditions, additional recommendations will be forthcoming - His platelet counts are above 50,000, and therefore in a safe range, even for anticoagulation or invasive procedures Current Visit: Yes Status: Acute Code(s): D61.818 - OTHER PANCYTOPENIA SNOMED Code(s): 679883188 (4) Warfarin-induced coagulopathy Narrative/Plan: Acute Blood Loss occurred when the patient was on anticoagulation. As noted he was on IV heparin and then subsequently was being transitioned to Coumadin. However INR was never supratherapeutic and the patient has been on Coumadin chronically. Agree with blood transfusion, which has stabilize his hemoglobin. Continue to monitor with additional transfusions as needed. Given the clinical presentation, I would recommend that the patient should have an EGD down the line. If the hemoglobin stable, this can be scheduled, once WBC improved into a safe range which would reduce the risk of the procedure. Current Visit: Yes Status: Acute Code(s): D68.32 - HEMORRHAGIC DISORD D/T EXTRINSIC CIRCULATING ANTICOAGULANTS; T45.515A - ADVERSE EFFECT OF ANTICOAGULANTS, INITIAL ENCOUNTER SNOMED Code(s): 89985804 Plan: Assessment and Recommendatons. 1. Pancytopenia: Anemia - If Ferritin below 150 will be resonable to give IV Iron Supplementation - IV Iron daily x3 days ordered to start after transfusion today. - Continue to Monitor CBC daily I have completed the full history and physical of this patient, discussed and agree with dictation above documented by Sydni oDbbs NP. Documented as a scribe
[2017-12-17] MEDS: FERROUS SULFATE 325 MG TAB PO SCH (12:37)
[2017-12-17 12:49] VITALS: BP 117/56; PULSE 87
--- NOTE | 2017-12-17 14:19 | P.DS ---
Providers Date of admission: 12/06/17 00:09 Expected date of discharge: 12/17/17 Attending physician: Zhao Tineo Consults: 12/06/17 00:09 Consult Physician Urgent Consulting Provider: Papo Nunes Consult Reason/Comments: acute coronary syndrome Do you want consulting provider notified?: Yes 12/13/17 08:59 Consult Physician Routine Consulting Provider: Bev Buenrostro Consult Reason/Comments: leukopenia Do you want consulting provider notified?: Yes 12/13/17 16:49 Consult Physician Urgent Consulting Provider: Lalo Fay Consult Reason/Comments: leukopenia Do you want consulting provider notified?: Yes GI, Dr. García Primary care physician: Britney Clark [facility] Course: Final Diagnoses: 1. [ Acute non-STEMI, medical treatment]. 2. [ CAD, history of CABG]. 3. [ Ischemic cardiomyopathy status post AICD]. 4. [ Orthostatic hypotension]. 5. [ Gait dysfunction]. 6. [ Urinary retention]. 7. [ Acute UTI with Proteus mirabilis]. 8.. Neutropenia and pancytopenia on filgrastim 9. Paroxysmal atrial fibrillation Hospital course:This is an 87-year-old gentleman admitted with acute non-STEMI, severe ischemic cardiomyopathy, symptomatic anemia with generalized fatigue, hypotension, acute UTI multiple other medical issues. Borderline hypotensive. Received transfusions of packed RBCs with current hemoglobin 9.5. Evaluated by cardiology, infectious disease, hematology, GI. Possible outpatient endoscopy. Urine culture reporting Proteus Mirabella's, maintained on IV antibiotic therapy as per infectious disease. Medical treatment recommended as per cardiology. AICD interrogated and reported as functioning appropriately. Aspirin had been discontinued secondary to thrombocytopenia. Coumadin had been held. Anticoagulation, aspirin recommendations as per hematology, platelets currently at 50. Physical exam:VSS, alert and oriented 3,no acute distress,CV: Regular S1 and S2. LUNGS CTA, bilateral bases diminished.ABD: Soft, nontender, positive bowel sounds. NEURO: No focal deficits. The impression and plan of care has been dictated as directed. : I performed a history and examination of this patient, discussed the same with the dictator. I agree with the dictator's note ,documented as a scribe. Any additional findings or plans will be noted. Time taken: 35 minutes Patient Condition at Discharge: Stable Plan - Discharge Summary Discharge Rx Participant: Yes New Discharge Prescriptions: New Aspirin 81 mg PO DAILY #30 chew Docusate [Colace] 100 mg PO BID PRN #20 cap PRN Reason: Constipation Spironolactone [Aldactone] 25 mg PO DAILY #30 tab Ciprofloxacin HCl [Cipro] 500 mg PO BID #14 tab Ferrous Sulfate [Iron (65 MG Elemental)] 325 mg PO W/LUNCH tab Losartan [Cozaar] 12.5 mg PO DAILY tab Metoprolol Tartrate [Lopressor] 25 mg PO BID tab Nitroglycerin Sl Tabs [Nitrostat] 0.4 mg SUBLINGUAL Q5M PRN tab PRN Reason: Chest Pain Pantoprazole [Protonix] 40 mg PO AC-BRKFST tablet.dr Joshua Latanoprost [Xalatan 0.005%] 1 drop BOTH EYES HS Atorvastatin [Lipitor] 20 mg PO HS Digoxin [Lanoxin] 125 mcg PO DAILY Discontinued Metoprolol Tartrate [Lopressor] 100 mg PO BID Losartan Potassium [Cozaar] 25 mg PO DAILY Discharge Medication List Atorvastatin [Lipitor] 20 mg PO HS 12/06/17 [History] Digoxin [Lanoxin] 125 mcg PO DAILY 12/06/17 [History] Latanoprost [Xalatan 0.005%] 1 drop BOTH EYES HS 12/06/17 [History] Aspirin 81 mg PO DAILY #30 chew 12/11/17 [Rx] Docusate [Colace] 100 mg PO BID PRN #20 cap 12/11/17 [Rx] Spironolactone [Aldactone] 25 mg PO DAILY #30 tab 12/11/17 [Rx] Ciprofloxacin HCl [Cipro] 500 mg PO BID #14 tab 12/17/17 [Rx] Ferrous Sulfate [Iron (65 MG Elemental)] 325 mg PO W/LUNCH tab 12/17/17 [Rx] Losartan [Cozaar] 12.5 mg PO DAILY tab 12/17/17 [Rx] Metoprolol Tartrate [Lopressor] 25 mg PO BID tab 12/17/17 [Rx] Nitroglycerin Sl Tabs [Nitrostat] 0.4 mg SUBLINGUAL Q5M PRN tab 12/17/17 [Rx] Pantoprazole [Protonix] 40 mg PO AC-BRKFST tablet. 12/17/17 [Rx] Follow up Appointment(s)/Referral(s): Ha García MD [STAFF PHYSICIAN] - 12/31/17 1:45 pm Zaina Gilliland MD [STAFF PHYSICIAN] - 12/21/17 3:00 pm (Office closed. Please call office to schedule follow-up appointment. ) [facility], [NON-STAFF] - Britney Clark DO [Primary Care Provider] - 1 Week (After DC from subacute rehab ) Lalo Fay MD [STAFF PHYSICIAN] - 1 Week Patient Instructions/Handouts: Myocardial Infarction (DC) Activity/Diet/Wound Care/Special Instructions: [facility], [place] Anticoagulation, aspirin, VIT. B12 as per hematology CBC,BMP in 3 days Diet: Cardiac Discharge Disposition: HOME WITH HOME HEALTH SERVICES
--- NOTE | 2017-12-17 15:31 | PN ---
PROGRESS NOTE DATE OF SERVICE: 12/17/2017. REASON FOR FOLLOWUP: Proteus mirabilis urinary tract infection. INTERVAL HISTORY: The patient is afebrile. He is currently breathing comfortably. Denies having any chest pain, shortness of breath or cough. No abdominal pain or diarrhea. EXAMINATION: Blood pressure is 117/56, pulse of 87, temperature 96.9. He is 94% on room air. General description is an elderly male up in the chair in no distress. RESPIRATORY SYSTEM: Unlabored breathing. Clear to auscultation anteriorly. HEART: S1, S2. Regular rate and rhythm. ABDOMEN: Soft, no tenderness. LABS: White count of 11.4 with a BUN of 11, creatinine 0.60. DIAGNOSTIC IMPRESSION AND PLAN: Patient with Proteus mirabilis urinary tract infection finishing therapy with oral Cipro for another week with close outpatient followup. Continue supportive care. MMODL / IJN: [id number] /
[2017-12-18] MEDS ORDERED: PANTOPRAZOLE 40 MG TABLET PO SCH (07:30)
--- NOTE | 2017-12-18 17:04 | CDI ---
Last Revision, July 2017 Documentation Clarification Form Date: 12/18/17 From: Maria M Osman Amarilys Paz, Public Health Engineer between 8:30 am & 5 pm Elly Admit Date: 12/06/2017 12:09:00 AM Patient Name: Oscar Bernstein Visit Number: [id number] Discharge Date: 12/17/17 ATTENTION: The Clinical Documentation Specialists (CDI) and [facility] Coding Staff appreciate your assistance in clarifying documentation. Please respond to the clarification below the line at the bottom and electronically sign. The CDI & [facility] Coding staff will review the response and follow-up if needed. Please note: Queries are made part of the Legal Health Record. If you have any questions, please contact the author of this message via ITS. Dr. Bev Buenrostro A diagnosis of UTI has been documented in your consult on 12/13.The patient was admitted on 12/06.Catheter was placed on 12/11. Urine culture on 12/06 was negative. Urine culture on 12/12 was positive, Proteus mirabilis. 12/11 Urinalysis: pH 8.5, UA protein 4+, leukocyte esterase large, WBC 51, RBC 182, triple phos crystals few, bacteria many, mucous many Lactic acid: 1.0 Treatment: IV Rocephin started in 12/11, PO Cipro on 12/13 In your professional opinion, can you please clarify the etiology of the UTI, if known? Escudero catheter UTI not related to catheter Other condition, please specify Unable to determine If an infective organism is present, please specify cause and effect relationship if applicable. Please continue to document in your progress notes and discharge summary in order to capture severity of illness and risk of mortality. Include clinical findings that support your diagnosis. UTI Not related to catheter as the catheter was there only for 1 day at time of + urine cultures MTDD
== END 2017-12-17 18:03 | DRG 281 ==
LOC: SUPCPDRO 19:42 → EC 19:42 → 6ICU 12-06 00:09 → 6SEL 12-06 16:44
PROVIDERS: ADMIT Hospitalist; ATTEND Hospitalist
PROC: 4B02XTZ Measurement of Cardiac Defibrillator, External Approach (ICD-10-PCS; 2017-12-07)
PROC: 30233N1 Transfusion of Nonautologous Red Blood Cells into Peripheral Vein, Percutaneous Approach (ICD-10-PCS; principal; 2017-12-13)
DX: I21.4 Non-ST elevation (NSTEMI) myocardial infarction (principal); N39.0 Urinary tract infection, site not specified; D61.818 Other pancytopenia; D68.32 Hemorrhagic disorder due to extrinsic circulating anticoagulants; E87.1 Hypo-osmolality and hyponatremia; D62 Acute posthemorrhagic anemia; K92.1 Melena; I25.5 Ischemic cardiomyopathy; B96.4 Proteus (mirabilis) (morganii) as the cause of diseases classified elsewhere; I48.0 Paroxysmal atrial fibrillation; F03.90 Unspecified dementia, unspecified severity, without behavioral disturbance, psychotic disturbance, mood disturbance, and anxiety; Z95.1 Presence of aortocoronary bypass graft; E53.8 Deficiency of other specified B group vitamins; I95.1 Orthostatic hypotension; R26.9 Unspecified abnormalities of gait and mobility; K59.00 Constipation, unspecified; E78.5 Hyperlipidemia, unspecified; I10 Essential (primary) hypertension; I25.2 Old myocardial infarction; I25.10 Atherosclerotic heart disease of native coronary artery without angina pectoris; T45.515A Adverse effect of anticoagulants, initial encounter; R33.9 Retention of urine, unspecified; Z79.01 Long term (current) use of anticoagulants; Z79.899 Other long term (current) drug therapy; Z87.891 Personal history of nicotine dependence; Z95.810 Presence of automatic (implantable) cardiac defibrillator; Z95.5 Presence of coronary angioplasty implant and graft; Y92.231 Patient bathroom in hospital as the place of occurrence of the external cause
CPT/HCPCS: 36415; 71275; 74177; 76705; 80048; 80053; 80061; 80162; 81001; 81003; 82150; 82550; 82553; 82607; 82728; 82747; 83540; 83550; 83605; 83690; 83883; 84165; 84443; 84484; 85025; 85027; 85045; 85610; 85730; 86334; 86850; 86900; 86901; 86920; 87077; 87086; 87186; 93005; 93306; 94760; 96361; 96365; 96375; 96376; 99291

== ENCOUNTER 2018-01-17 20:36 | Inpatient (IN) | payer MEDICARE ==
[2018-01-17] MEDS ORDERED: IPRATROPIUM-ALBUTEROL 3 ML NEB INHALATION STA (20:57)
[2018-01-17] MEDS ORDERED: NITROGLYCERIN OINT 1 INCH/GM PACKET TOPICAL STA (20:57)
[2018-01-17] MEDS ORDERED: ASPIRIN 81 MG PO STA (20:58)
--- NOTE | 2018-01-17 21:08 | ED ---
SOB HPI - General Chief Complaint: Shortness of Breath Stated Complaint: SOB Time Seen by Provider: 01/17/18 20:46 Source: patient Mode of arrival: wheelchair Limitations: no limitations - History of Present Illness Initial Comments: This 87-year-old white male presents with a complaint of chest pain and difficulty in breathing. He apparently developed some midsternal chest pressure around 6 PM tonight. This radiated up into his jaw. The gave him one sublingual nitroglycerin with some relief. He also is having some shortness of breath. He does have a history of atrial fibrillation and presents in atrial fibrillation with rapid ventricular response. There has been a slight cough but no fever. There is no lower extremity edema. He was just discharged from rehab 5 days ago. He previously was hospitalized in the family states that he was hospitalized for a heart attack. He does have a remote history of 2 stents but none during the last hospitalization. There is no leg pain or swelling or history of DVT or PE. No other complaints or modifying factors. - Related Data Home Medications Medication Instructions Recorded Confirmed Atorvastatin [Lipitor] 25 mg PO HS 12/06/17 01/17/18 Digoxin [Lanoxin] 125 mcg PO DAILY 12/06/17 01/17/18 Latanoprost [Xalatan 0.005%] 1 drop BOTH EYES HS 12/06/17 01/17/18 Warfarin [Coumadin] 2 mg PO DAILY 12/17/17 01/17/18 Warfarin [Coumadin] 4 mg PO DAILY 12/17/17 01/17/18 Cyanocobalamin [Vitamin B-12 1,000 mcg IM WEEKLY 01/17/18 01/17/18 Injection] Folic Acid 1 mg PO DAILY 01/17/18 01/17/18 Losartan [Cozaar] 25 mg PO DAILY 01/17/18 01/17/18 Omeprazole 20 mg PO DAILY 01/17/18 01/17/18 Promethazine [Phenergan] 12.5 mg PO Q6HR 01/17/18 01/17/18 Previous Rx's Medication Instructions Recorded Spironolactone [Aldactone] 25 mg PO DAILY #30 tab 12/11/17 Ferrous Sulfate [Iron (65 MG 325 mg PO W/LUNCH tab 12/17/17 Elemental)] Metoprolol Tartrate [Lopressor] 25 mg PO BID tab 12/17/17 Nitroglycerin Sl Tabs [Nitrostat] 0.4 mg SUBLINGUAL Q5M PRN tab 12/17/17 Allergies Allergy/AdvReac Type Severity Reaction Status Date / Time No Known Allergies Allergy Verified 12/05/17 19:55 Review of Systems ROS Statement: Those systems with pertinent positive or pertinent negative responses have been documented in the HPI. ROS Other: All systems not noted in ROS Statement are negative. Past Medical History Past Medical History: Coronary Artery Disease (CAD), Chest Pain / Angina, Hypertension Additional Past Medical History / Comment(s): PA in 1991 with two stents placed. Last Myocardial Infarction Date:: 1991 History of Any Multi-Drug Resistant Organisms: None Reported Past Surgical History: AICD, Coronary Bypass/CABG, Pacemaker Additional Past Surgical History / Comment(s): CABG x3. Past Anesthesia/Blood Transfusion Reactions: No Reported Reaction Past Psychological History: No Psychological Hx Reported Smoking Status: Former smoker Past Alcohol Use History: None Reported Past Drug Use History: None Reported General Exam - General Exam Comments Initial Comments: GENERAL: The patient is well nourished and well hydrated. VITAL SIGNS: Heart rate, blood pressure, respiratory rate reviewed as recorded in nurse's notes. EYES: Pupils are round and reactive. Extraocular movements are intact. No conjunctival / lid redness or swelling. ENT: No external evidence of injury, swelling, or ecchymosis. Airway is patent. Throat is clear. NECK: Nontender. No swelling or evidence of injury. No subcutaneous emphysema. Trachea is midline. No thyroid mass. HEART: Tachycardic irregular heart rate noted. Good peripheral pulses. LUNGS/CHEST: Breath sounds clear and equal bilaterally. No rales, rhonchi, or wheezes. No ecchymosis, subcutaneous emphysema, or tenderness. ABDOMEN: Abdomen soft without tenderness. No palpable masses or organomegaly. No peritoneal signs. No abdominal wall swelling or ecchymosis. EXTREMITIES: No extremity tenderness. Normal muscle tone and function. No thoracolumbar tenderness. NEUROLOGIC: Sensation is grossly intact. Cranial nerve exam reveals face is symmetrical, tongue is midline, speech is clear. SKIN: No abrasions or ecchymosis is noted. No induration or masses noted. PSYCHIATRIC: Alert and oriented. Appropriate behavior and judgment. Limitations: no limitations Course Vital Signs 05/20/18 05/20/18 05/20/18 20:37 21:07 21:36 Temperature 97.2 F L Pulse Rate 89 120 H 109 H Respiratory 22 20 Rate Blood Pressure 146/60 128/71 O2 Sat by Pulse 92 L 99 Oximetry 01/17/18 01/17/18 01/17/18 21:38 21:46 22:29 Temperature Pulse Rate 130 H 93 86 Respiratory 20 18 Rate Blood Pressure 119/52 101/52 O2 Sat by Pulse 99 93 L Oximetry Medical Decision Making - Medical Decision Making The patient was seen and examined. All diagnostics are reviewed. The EKG shows an atrial fibrillation with rapid ventricular response at a rate of 111. There are occasional ventricular paced complexes. There is some flattened T waves in the inferior and lateral leads. The QRS duration is 88 and the QTC intervals 424. He was watched on the hand blocker and his heart rate would go up to 140 at times as well. He is given aspirin as well as Nitropaste and started on a Cardizem drip. His heart rate did come down nicely on the Cardizem drip. He is feeling well on recheck. The laboratory does show a pancytopenia which is improved as compared to previous. The BNP is also elevated. There is minor electrolyte abnormalities. The chest x-ray showed signs of COPD. Old records are reviewed and it does show that he had a non-ST elevation myocardial infarction this past month. It is felt as though he would benefit from admission to the hospital and further Cardiologic consultation. The case will be discussed with internal medicine in the near future. - Lab Data Result diagrams: 01/17/18 20:56 01/17/18 20:56 Lab Results 01/17/18 01/17/18 01/17/18 Range/Units 20:56 20:56 20:56 WBC 2.3 L (3.8-10.6) k/uL RBC 3.67 L (4.30-5.90) m/uL Hgb 11.1 L (13.0-17.5) gm/dL Hct 34.5 L (39.0-53.0) % MCV 94.2 (80.0-100.0) fL MCH 30.4 (25.0-35.0) pg MCHC 32.2 (31.0-37.0) g/dL RDW 18.5 H (11.5-15.5) % Plt Count 134 L D (150-450) k/uL Neutrophils % (Manual) 73 % Band Neutrophils % 5 % Lymphocytes % (Manual) 19 % Monocytes % (Manual) 3 % Neutrophils # (Manual) 1.70 (1.3-7.7) k/uL Lymphocytes # (Manual) 0.44 L (1.0-4.8) k/uL Monocytes # (Manual) 0.07 (0-1.0) k/uL Nucleated RBCs 0 (0-0) /100 WBC Manual Slide Review Performed Hypochromasia Slight Anisocytosis Slight PT (9.0-12.0) sec INR (<1.2) APTT (22.0-30.0) sec Sodium 134 L (137-145) mmol/L Potassium 4.6 (3.5-5.1) mmol/L Chloride 96 L (98-107) mmol/L Carbon Dioxide 25 (22-30) mmol/L Anion Gap 13 mmol/L BUN 20 (9-20) mg/dL Creatinine 0.70 (0.66-1.25) mg/dL Est GFR (CKD-EPI)AfAm >90 (>60 ml/min/1.73 sqM) Est GFR (CKD-EPI)NonAf 86 (>60 ml/min/1.73 sqM) Glucose 122 H (74-99) mg/dL Calcium 8.8 (8.4-10.2) mg/dL Total Bilirubin 0.9 (0.2-1.3) mg/dL AST 16 L (17-59) U/L ALT 28 (21-72) U/L Alkaline Phosphatase 143 H (38-126) U/L Total Creatine Kinase <20 L (55-170) U/L CK-MB (CK-2) 0.5 (0.0-2.4) ng/mL CK-MB (CK-2) Rel Index Troponin I 0.013 (0.000-0.034) ng/mL NT-Pro-B Natriuret Pep pg/mL Total Protein 6.5 (6.3-8.2) g/dL Albumin 3.3 L (3.5-5.0) g/dL Digoxin 0.7 ng/mL 01/17/18 01/17/18 Range/Units 20:56 20:56 WBC (3.8-10.6) k/uL RBC (4.30-5.90) m/uL Hgb (13.0-17.5) gm/dL Hct (39.0-53.0) % MCV (80.0-100.0) fL MCH (25.0-35.0) pg MCHC (31.0-37.0) g/dL RDW (11.5-15.5) % Plt Count (150-450) k/uL Neutrophils % (Manual) % Band Neutrophils % % Lymphocytes % (Manual) % Monocytes % (Manual) % Neutrophils # (Manual) (1.3-7.7) k/uL Lymphocytes # (Manual) (1.0-4.8) k/uL Monocytes # (Manual) (0-1.0) k/uL Nucleated RBCs (0-0) /100 WBC Manual Slide Review Hypochromasia Anisocytosis PT 11.6 (9.0-12.0) sec INR 1.2 H (<1.2) APTT 25.9 (22.0-30.0) sec Sodium (137-145) mmol/L Potassium (3.5-5.1) mmol/L Chloride (98-107) mmol/L Carbon Dioxide (22-30) mmol/L Anion Gap mmol/L BUN (9-20) mg/dL Creatinine (0.66-1.25) mg/dL Est GFR (CKD-EPI)AfAm (>60 ml/min/1.73 sqM) Est GFR (CKD-EPI)NonAf (>60 ml/min/1.73 sqM) Glucose (74-99) mg/dL Calcium (8.4-10.2) mg/dL Total Bilirubin (0.2-1.3) mg/dL AST (17-59) U/L ALT (21-72) U/L Alkaline Phosphatase (38-126) U/L Total Creatine Kinase (55-170) U/L CK-MB (CK-2) (0.0-2.4) ng/mL CK-MB (CK-2) Rel Index Troponin I (0.000-0.034) ng/mL NT-Pro-B Natriuret Pep 1860 pg/mL Total Protein (6.3-8.2) g/dL Albumin (3.5-5.0) g/dL Digoxin ng/mL Disposition Clinical Impression: Atrial fibrillation with rapid ventricular response, Chest pain, Unstable angina, Dyspnea, Hypoxia, Pancytopenia Disposition: ADMITTED IP TO THIS HOSP Condition: Fair Is patient prescribed a controlled substance at d/c from ED?: No Time of Disposition: 22:50 Decision Date: 01/17/18 Decision Time: 22:50
[2018-01-17 21:23] LABS: Anisocytosis Slight; HCT 34.5 % (39.0-53.0); HGB 11.1 gm/dL (13.0-17.5); Hypochromasia Slight; MCH 30.4 pg (25.0-35.0); MCHC 32.2 g/dL (31.0-37.0); MCV 94.2 fL (80.0-100.0); Mean Platelet Volume 11.5; RBC 3.67 m/uL (4.30-5.90); RDW 18.5 % (11.5-15.5); WBC 2.3 k/uL (3.8-10.6)
[2018-01-17 21:24] LABS: Platelet Count 134 k/uL (150-450)
[2018-01-17 21:26] LABS: INR 1.2 (<1.2); Partial Thromboplastin Time 25.9 sec (22.0-30.0); Prothrombin Time 11.6 sec (9.0-12.0)
[2018-01-17] MEDS ORDERED: METOPROLOL TARTRATE 25 MG TAB PO STA (21:28)
[2018-01-17] MEDS ORDERED: TAMSULOSIN 0.4 MG CAP.ER.24H PO STA (21:29)
[2018-01-17] MEDS ORDERED: PANTOPRAZOLE 40 MG TABLET PO STA (21:29)
[2018-01-17] MEDS ORDERED: ATORVASTATIN 20 MG TAB PO STA (21:29)
[2018-01-17] MEDS ORDERED: DILTIAZEM 50 MG in SODIUM CHLORIDE 0.9% 40 ML IV ONE (21:30)
--- NOTE | 2018-01-17 21:30 | XR ---
EXAMINATION TYPE: XR chest 2V DATE OF EXAM: 01/17/2018 COMPARISON: 11/03/2013 HISTORY: 87 year-old male shortness of breath, difficulty breathing TECHNIQUE: AP and lateral views FINDINGS: Median sternotomy wires are present with post-CABG clips. Patient is rotated towards the right alteri ng the normal cardial mediastinal contours. Left anterior chest wall ICD generator with right atrial and right ventricular leads. Heart normal size. Pulmonary vasculature within normal limits. Hyperinflation with flattening the hem idiaphragms. Calcified lymph nodes in the hilum compatible with prior granulomatous disease. Eventrat ion posterior hemidiaphragm. Either trace pleural effusions or pleural parenchymal scarring at the po sterior base. Retained epicardial pacer leads. IMPRESSION: COPD and prior granulomatous disease with either trace effusions or pleural parenchymal scarring at t he posterior lung bases. Otherwise, no acute process seen.
[2018-01-17 21:31] LABS: ALT 28 U/L (21-72); AST 16 U/L (17-59); Albumin 3.3 g/dL (3.5-5.0); Alkaline Phosphatase 143 U/L (38-126); Anion Gap 13 mmol/L; Blood Urea Nitrogen 20 mg/dL (9-20); Calcium 8.8 mg/dL (8.4-10.2); Carbon Dioxide 25 mmol/L (22-30); Chloride 96 mmol/L (98-107); Digoxin 0.7 ng/mL; Glucose 122 mg/dL (74-99); Potassium 4.6 mmol/L (3.5-5.1); Sodium 134 mmol/L (137-145); Total Bilirubin 0.9 mg/dL (0.2-1.3); Total Protein 6.5 g/dL (6.3-8.2)
[2018-01-17 21:37] LABS: Creatine Kinase <20 U/L (55-170)
[2018-01-17 21:39] LABS: Band Neutrophils % 5 %; Lymphocytes # (M) 0.44 k/uL (1.0-4.8); Monocytes # (M) 0.07 k/uL (0-1.0); Neutrophils % (M) 73 %; Nucleated Red Blood Cells 0 /100 WBC (0-0); Total Cells Counted 100
[2018-01-17 21:51] LABS: Creatine Kinase MB 0.5 ng/mL (0.0-2.4); Troponin I 0.013 ng/mL (0.000-0.034)
[2018-01-17] MEDS ORDERED: NITROGLYCERIN SL TABS 0.4 MG TAB SUBLINGUAL PRN ×2 (22:50→22:54)
[2018-01-18] MEDS: PROMETHAZINE 25 MG TAB PO SCH ×4 (00:45→18:08)
[2018-01-18 01:53] LABS: Amorphous Sediment,Urine Rare /hpf; Appearance,Urine Cloudy (Clear); Bacteria,Urine Rare /hpf; Bilirubin,Urine Negative (Negative); Blood,Urine Small (Negative); Color,Urine Light Orange; Glucose,Urine (UA) Negative (Negative); Ketones,Urine Trace (Negative); Leukocyte Esterase,Urine Large (Negative); Mucus,Urine Many /hpf; Nitrite,Urine Negative (Negative); PH, Urine 6.5 (5.0-8.0); Protein,Urine 1+ (Negative); RBC,Urine 23 /hpf (0-5); Specific Gravity,Urine 1.021 (1.001-1.035); Squamous Epithelial Cell,Urine 1 /hpf (0-4); WBC,Urine 179 /hpf (0-5)
[2018-01-18] MEDS ORDERED: cefTRIAXone IN SWFI 1,000 MG/10 ML SYRINGE IVP STA (02:44)
[2018-01-18 04:15] LABS: Cholesterol 68 mg/dL (<200); HDL Cholesterol 21 mg/dL (40-60); LDL Cholesterol,Calculated 38 mg/dL (0-99); Triglycerides 46 mg/dL (<150)
[2018-01-18 04:37] LABS: Creatine Kinase <20 U/L (55-170)
[2018-01-18 04:50] LABS: Creatine Kinase MB 0.6 ng/mL (0.0-2.4); Troponin I 0.024 ng/mL (0.000-0.034)
[2018-01-18] MEDS ORDERED: NITROGLYCERIN OINT 1 INCH/GM PACKET TOPICAL SCH (06:00)
[2018-01-18] MEDS: PANTOPRAZOLE 40 MG TABLET PO SCH (08:26)
[2018-01-18] MEDS: FOLIC ACID 1 MG TAB PO SCH (08:34)
[2018-01-18] MEDS: LOSARTAN 25 MG TAB PO SCH ×2 (08:34→08:39)
[2018-01-18] MEDS: DIGOXIN 125 MCG TAB PO SCH (08:34)
[2018-01-18] MEDS: SPIRONOLACTONE 25 MG TAB PO SCH ×2 (08:37→08:41)
[2018-01-18] MEDS: METOPROLOL TARTRATE 25 MG TAB PO SCH ×2 (08:38→22:30)
[2018-01-18] MEDS ORDERED: ASPIRIN 325 MG TAB PO SCH (09:00)
[2018-01-18 09:48] LABS: Creatine Kinase <20 U/L (55-170)
[2018-01-18 09:56] LABS: Creatine Kinase MB 0.8 ng/mL (0.0-2.4)
[2018-01-18] MEDS: FERROUS SULFATE 325 MG TAB PO SCH (18:07)
[2018-01-18] MEDS: WARFARIN 2 MG TAB PO SCH (18:07)
[2018-01-18] MEDS ORDERED: DOCUSATE 100 MG CAP PO PRN (22:28)
--- NOTE | 2018-01-18 22:28 | P.HPIM ---
History of Present Illness H&P Date: 01/18/18 Chief Complaint: Chest pain and shortness of breath Patient is a 87-year-old male with a known history of coronary artery disease status post bypass graft, history of stent placement, cardiomyopathy status post AICD placement, hypertension, hyperlipidemia and atrial fibrillation on anticoagulation came to ER with complaints of chest pain and difficulty in treating. Patient developed midsternal chest pressure around 6 PM last night and radiated to his left jaw. Patient was given sublingual nitroglycerin by his and brought him to the hospital. Patient was discharged from the hospital on 12/17/2017 to rehab. Patient was recently released from rehab and and is currently at home. Patient was admitted previously with non-ST elevated SC and recommended medical management. Patient was also having dark or short and GI bleed at the time. Currently hemoglobin is 11 which is much improved now. Patient was also having cough along with shortness of breath. No fever no chills. No leg swelling. No headache or dizziness or lightheadedness. Patient was found to have atrial fibrillation with rapid ventricular rate on admission His INR is subtherapeutic at 1.2 Chest x-ray showed COPD and prior granulomatous disease. Otherwise no acute process. Troponin 3 negative Patient also found have urinary tract infection and was started on antibiotics in the form of ceftriaxone. Review of Systems Constitutional: Patient denies any fever or chills . No generalized weakness or weight loss. Abdomen: Patient denied nausea vomiting and diarrhea and abdominal pain. Cardiovascular: Patient denies any chest pain or short of breath no palpitations. Respiratory: Patient does have cough without sputum production and also shortness of breath present. Neurologic: Patient denied any numbness or tingling headache. Musculoskeletal: Patient denies any complaints of joint swelling or deformity. Patient is a poor historian. Complete review of systems could not be obtained from the patient Past Medical History Past Medical History: Atrial Fibrillation, Coronary Artery Disease (CAD), Chest Pain / Angina, Hypertension Additional Past Medical History / Comment(s): [place] in 1991 with two stents placed. Last Myocardial Infarction Date:: 1991 History of Any Multi-Drug Resistant Organisms: None Reported Past Surgical History: AICD, Coronary Bypass/CABG, Pacemaker Additional Past Surgical History / Comment(s): CABG x3. Past Anesthesia/Blood Transfusion Reactions: No Reported Reaction Type of Cardiac Device: Permanent Pacemaker Device Placement Date:: 2012 Past Psychological History: No Psychological Hx Reported Smoking Status: Former smoker Past Alcohol Use History: None Reported Past Drug Use History: None Reported - Past Family History Father History Unknown: Yes Mother History Unknown: Yes Medications and Allergies Home Medications Medication Instructions Recorded Confirmed Type Atorvastatin [Lipitor] 20 mg PO HS 12/06/17 01/18/18 History Digoxin [Lanoxin] 125 mcg PO DAILY 12/06/17 01/18/18 History Latanoprost [Xalatan 0.005%] 1 drop BOTH EYES HS 12/06/17 01/18/18 History Spironolactone [Aldactone] 25 mg PO DAILY #30 tab 12/11/17 01/18/18 Rx Ferrous Sulfate [Iron (65 MG 325 mg PO W/LUNCH tab 12/17/17 01/18/18 Rx Elemental)] Metoprolol Tartrate [Lopressor] 25 mg PO BID tab 12/17/17 01/18/18 Rx Nitroglycerin Sl Tabs [Nitrostat] 0.4 mg SUBLINGUAL Q5M PRN tab 12/17/17 Rx Warfarin [Coumadin] 2 mg PO SUWE 12/17/17 01/18/18 History Warfarin [Coumadin] 4 mg PO MOTUTHFRSA 12/17/17 01/18/18 History Cyanocobalamin [Vitamin B-12 1,000 mcg IM Q7D 01/17/18 01/18/18 History Injection] Folic Acid 1 mg PO DAILY 01/17/18 01/18/18 History Losartan [Cozaar] 12.5 mg PO DAILY 01/17/18 01/18/18 History Omeprazole 20 mg PO DAILY 01/17/18 01/18/18 History Promethazine [Phenergan] 12.5 mg PO Q6HR PRN 01/17/18 01/18/18 History Aspirin 81 mg PO DAILY 01/18/18 01/18/18 History Docusate [Colace] 100 mg PO BID PRN 01/18/18 01/18/18 History Tamsulosin HCl [Flomax] 0.4 mg PO DAILY 01/18/18 01/18/18 History Allergies Allergy/AdvReac Type Severity Reaction Status Date / Time No Known Allergies Allergy Verified 01/18/18 08:00 Physical Exam Vitals: Vital Signs Temp Pulse Resp BP Pulse Ox 01/18/18 12:09 18 01/18/18 12:00 91 18 89/52 100 01/18/18 08:32 77 18 156/58 99 01/18/18 08:11 18 01/18/18 07:56 98 01/18/18 06:00 96.9 F L 82 18 94/52 100 01/18/18 02:29 74 18 97/50 100 01/18/18 02:00 59 L 78/45 01/18/18 00:47 60 18 95/46 99 01/18/18 00:15 59 L 18 85/57 98 01/17/18 22:29 86 18 101/52 93 L 01/17/18 21:46 93 01/17/18 21:38 130 H 20 119/52 99 01/17/18 21:36 109 H 01/17/18 21:07 120 H 20 128/71 99 01/17/18 20:37 97.2 F L 89 22 146/60 92 L Intake and Output 01/17/18 01/18/18 01/18/18 22:59 06:59 14:59 Other: Voiding Method Indwelling Catheter Weight 53.977 kg 68.039 kg PHYSICAL EXAMINATION: Patient is lying in the bed comfortably, no acute distress, awake alert and oriented 1 with underlying dementia.. HEENT: Normocephalic. Neck is supple. Pupils reactive. Nostrils clear. Oral cavity is moist. Ears reveal no drainage. Neck reveals no JVD, carotid bruits, or thyromegaly. CHEST EXAMINATION: Trachea is central. Symmetrical expansion. Diminished bibasilar air entry. Lung salter clear to auscultation and percussion. CARDIAC: Normal S1, S2 with no gallops. No murmurs ABDOMEN: Soft. Bowel sounds normal. No organomegaly. No abdominal bruits. Extremities: reveal no edema. No clubbing or cyanosis Neurologically awake, alert, with well-coordinated movements. No focal deficits noted Skin: No rash or skin lesions. Psychiatric: Cooperative. Could not be assessed completely Musculoskeletal: No joint swelling or deformity. Normal range of motion. Results CBC & Chem 7: 01/17/18 20:56 01/17/18 20:56 Labs: Abnormal Lab Results - Last 24 Hours (Table) 01/17/18 01/17/18 01/17/18 Range/Units 20:56 20:56 20:56 WBC 2.3 L (3.8-10.6) k/uL RBC 3.67 L (4.30-5.90) m/uL Hgb 11.1 L (13.0-17.5) gm/dL Hct 34.5 L (39.0-53.0) % RDW 18.5 H (11.5-15.5) % Plt Count 134 L D (150-450) k/uL Lymphocytes # (Manual) 0.44 L (1.0-4.8) k/uL INR (<1.2) Sodium 134 L (137-145) mmol/L Chloride 96 L (98-107) mmol/L Glucose 122 H (74-99) mg/dL AST 16 L (17-59) U/L Alkaline Phosphatase 143 H (38-126) U/L Total Creatine Kinase <20 L (55-170) U/L Albumin 3.3 L (3.5-5.0) g/dL HDL Cholesterol (40-60) mg/dL Urine Protein (Negative) Urine Ketones (Negative) Urine Blood (Negative) Ur Leukocyte Esterase (Negative) Urine RBC (0-5) /hpf Urine WBC (0-5) /hpf Amorphous Sediment (None) /hpf Urine Bacteria (None) /hpf Urine Mucus (None) /hpf 01/17/18 01/18/18 01/18/18 Range/Units 20:56 01:00 03:00 WBC (3.8-10.6) k/uL RBC (4.30-5.90) m/uL Hgb (13.0-17.5) gm/dL Hct (39.0-53.0) % RDW (11.5-15.5) % Plt Count (150-450) k/uL Lymphocytes # (Manual) (1.0-4.8) k/uL INR 1.2 H (<1.2) Sodium (137-145) mmol/L Chloride (98-107) mmol/L Glucose (74-99) mg/dL AST (17-59) U/L Alkaline Phosphatase (38-126) U/L Total Creatine Kinase (55-170) U/L Albumin (3.5-5.0) g/dL HDL Cholesterol 21 L (40-60) mg/dL Urine Protein 1+ H (Negative) Urine Ketones Trace H (Negative) Urine Blood Small H (Negative) Ur Leukocyte Esterase Large H (Negative) Urine RBC 23 H (0-5) /hpf Urine WBC 179 H (0-5) /hpf Amorphous Sediment Rare H (None) /hpf Urine Bacteria Rare H (None) /hpf Urine Mucus Many H (None) /hpf 01/18/18 01/18/18 Range/Units 03:00 08:47 WBC (3.8-10.6) k/uL RBC (4.30-5.90) m/uL Hgb (13.0-17.5) gm/dL Hct (39.0-53.0) % RDW (11.5-15.5) % Plt Count (150-450) k/uL Lymphocytes # (Manual) (1.0-4.8) k/uL INR (<1.2) Sodium (137-145) mmol/L Chloride (98-107) mmol/L Glucose (74-99) mg/dL AST (17-59) U/L Alkaline Phosphatase (38-126) U/L Total Creatine Kinase <20 L <20 L (55-170) U/L Albumin (3.5-5.0) g/dL HDL Cholesterol (40-60) mg/dL Urine Protein (Negative) Urine Ketones (Negative) Urine Blood (Negative) Ur Leukocyte Esterase (Negative) Urine RBC (0-5) /hpf Urine WBC (0-5) /hpf Amorphous Sediment (None) /hpf Urine Bacteria (None) /hpf Urine Mucus (None) /hpf Microbiology - Last 24 Hours (Table) 01/18/18 01:00 Urine Culture - Preliminary Urine,Catheterized Thrombosis Risk Factor Assmnt - DVT/VTE Prophylaxis DVT/VTE Prophylaxis: Pharmacologic Prophylaxis ordered - Choose All That Apply Each Factor Represents 1 point: Abnormal pulmonary function (COPD), Medical pt on bed rest Each Risk Factor Represents 3 Points: Age 75 years or older Thrombosis Risk Factor Assessment Total Risk Factor Score: 5 Thrombosis Risk Factor Assessment Level: High Risk Assessment and Plan Assessment: Atrial fibrillation with a rapid ventricular rate. Heart rate improved with Cardizem drip Subtherapeutic INR Acute urinary tract infection. Possible catheter-related. Recent history of non-ST elevated SC, UTI and was discharged to rehab on 2017 History of paroxysmal atrial fibrillation on anticoagulation Ischemic cardiomyopathy status post ICD ejection fraction 20-25% Coronary artery disease with history of CABG and PCI Hypertension Hyperlipidemia Dementia DVT prophylaxis patient is currently on Coumadin Plan: Patient will be continued on Cardizem drip. Continue with anticoagulation with Coumadin and bridging with Lovenox. Continue the home medications and follow up closely. Monitor H&H. Cardiology was consulted. Further recommendations based on the clinical course. Prognosis is guarded with multiple medical problems and comorbid conditions with underlying dementia and advanced age. Time with Patient: Greater than 30
[2018-01-18] MEDS: ATORVASTATIN 20 MG TAB PO SCH (22:30)
[2018-01-18] MEDS: LATANOPROST 0.005% OPHTH DROPS 2.5 ML BTL BOTH EYES SCH (22:30)
[2018-01-18] MEDS: ENOXAPARIN 80 MG/0.8 ML SYRINGE SQ SCH (22:30)
[2018-01-19] MEDS: PROMETHAZINE 25 MG TAB PO SCH ×4 (06:08→23:43)
[2018-01-19] MEDS: PANTOPRAZOLE 40 MG TABLET PO SCH (06:32)
[2018-01-19 07:43] LABS: Anisocytosis Slight; Blood Urea Nitrogen 12 mg/dL (9-20); Carbon Dioxide 26 mmol/L (22-30); Hypochromasia Slight; MCH 30.6 pg (25.0-35.0); MCHC 32.5 g/dL (31.0-37.0); MCV 94.1 fL (80.0-100.0); Mean Platelet Volume 10.6; RBC 3.08 m/uL (4.30-5.90); RDW 18.9 % (11.5-15.5)
[2018-01-19 07:59] LABS: Anion Gap 7 mmol/L; Calcium 8.3 mg/dL (8.4-10.2); Chloride 100 mmol/L (98-107); Glucose 82 mg/dL (74-99); Potassium 4.5 mmol/L (3.5-5.1); Sodium 133 mmol/L (137-145)
[2018-01-19 08:14] LABS: HGB 9.4 gm/dL (13.0-17.5)
[2018-01-19 08:15] LABS: WBC 1.3 k/uL (3.8-10.6)
--- NOTE | 2018-01-19 08:26 | P.CRDCN ---
History of Present Illness Consult date: 01/19/18 Requesting physician: Zhao Tineo Consult reason: chest pain Chief complaint: Chest tightness History of present illness: This is a pleasant 87-year-old frail gentleman who follows with Dr. Enrike Gilliland in the office. He has a known history of coronary artery disease with prior bypass surgery, prior PCI's, ischemic cardiomyopathy with prior AICD, paroxysmal atrial fibrillation, on Coumadin for anticoagulation, hypertension, hyperlipidemia, COPD, who presented to the hospital with symptoms of discomfort in his upper chest area, around his throat, he also states that with any exertion at all he gets short of breath or develops this tightness. He was recently in the hospital in November, with similar symptoms, had a non-Q-wave OK at that time. An echocardiogram with Doppler study was performed also in November which revealed severe global hypokinesia with an ejection fraction of 20-25%. EKG on arrival here showed atrial fibrillation with a moderately rapid ventricular response, no acute changes noted. Chest x-ray showed COPD with trace effusions. Repeat EKG shows atrial fibrillation with a controlled ventricular response. Blood pressure on arrival here 146/60, heart rate 120, temperature 97.2, 92% on room air. Blood pressure this morning 90/50 with a heart rate in the 80s, 92% on room air. White blood cell count 2.3, hemoglobin 11.1, platelet count 134. Sodium 133, potassium 4.5, BUN 12, creatinine 0.6. BNP [id number]. Troponins 0.013, 0.024, 0.020. INR 1.2. Lanoxin level 0.7. The patient is currently on aspirin 325 mg daily, Lipitor 20 mg daily, Lanoxin 125 g daily, Feosol one daily, losartan 25 mg daily, metoprolol 25 mg twice a day, Aldactone 25 mg daily and Coumadin 2 mg alternating with 4 mg daily. On this most recent admission, patient was seen in consultation by oncology because of pancytopenia and anemia. It was felt to be multifactorial. 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 Patient was initiated on B12 supplementation and white cell growth factors. It was also felt that if the patient's platelet count remained above 50,000 and was safe to continue anticoagulation. At the time of my examination this morning, he is currently chest pain-free, he does state that when he exerts himself minimally just walking to the bathroom he does get symptoms. Past Medical History Past Medical History: Atrial Fibrillation, Coronary Artery Disease (CAD), Chest Pain / Angina, Hypertension Additional Past Medical History / Comment(s): [place] in 1991 with two stents placed. Last Myocardial Infarction Date:: 1991 History of Any Multi-Drug Resistant Organisms: None Reported Past Surgical History: AICD, Coronary Bypass/CABG, Pacemaker Additional Past Surgical History / Comment(s): CABG x3. Past Anesthesia/Blood Transfusion Reactions: No Reported Reaction Type of Cardiac Device: Permanent Pacemaker Device Placement Date:: 2012 Past Psychological History: No Psychological Hx Reported Smoking Status: Former smoker Past Alcohol Use History: None Reported Past Drug Use History: None Reported - Past Family History Father History Unknown: Yes Mother History Unknown: Yes Medications and Allergies Home Medications Medication Instructions Recorded Confirmed Type Atorvastatin [Lipitor] 20 mg PO HS 12/06/17 01/18/18 History Digoxin [Lanoxin] 125 mcg PO DAILY 12/06/17 01/18/18 History Latanoprost [Xalatan 0.005%] 1 drop BOTH EYES HS 12/06/17 01/18/18 History Spironolactone [Aldactone] 25 mg PO DAILY #30 tab 12/11/17 01/18/18 Rx Ferrous Sulfate [Iron (65 MG 325 mg PO W/LUNCH tab 12/17/17 01/18/18 Rx Elemental)] Metoprolol Tartrate [Lopressor] 25 mg PO BID tab 12/17/17 01/18/18 Rx Nitroglycerin Sl Tabs [Nitrostat] 0.4 mg SUBLINGUAL Q5M PRN tab 12/17/17 Rx Warfarin [Coumadin] 2 mg PO SUWE 12/17/17 01/18/18 History Warfarin [Coumadin] 4 mg PO MOTUTHFRSA 12/17/17 01/18/18 History Cyanocobalamin [Vitamin B-12 1,000 mcg IM Q7D 01/17/18 01/18/18 History Injection] Folic Acid 1 mg PO DAILY 01/17/18 01/18/18 History Losartan [Cozaar] 12.5 mg PO DAILY 01/17/18 01/18/18 History Omeprazole 20 mg PO DAILY 01/17/18 01/18/18 History Promethazine [Phenergan] 12.5 mg PO Q6HR PRN 01/17/18 01/18/18 History Aspirin 81 mg PO DAILY 01/18/18 01/18/18 History Docusate [Colace] 100 mg PO BID PRN 01/18/18 01/18/18 History Tamsulosin HCl [Flomax] 0.4 mg PO DAILY 01/18/18 01/18/18 History Allergies Allergy/AdvReac Type Severity Reaction Status Date / Time No Known Allergies Allergy Verified 01/18/18 08:00 Physical Exam Vitals: Vital Signs Temp Pulse Pulse Resp BP BP BP 01/19/18 04:00 96.8 F L 107 H 24 01/19/18 00:00 88 16 01/18/18 23:46 88 16 88/52 01/18/18 20:33 91 110/49 01/18/18 20:00 97.7 F 91 18 82/50 01/18/18 15:55 97.0 F L 83 18 105/52 86/48 01/18/18 12:09 18 01/18/18 12:00 91 18 89/52 01/18/18 08:32 77 18 156/58 01/18/18 08:11 18 Pulse Ox 01/19/18 04:00 92 L 01/19/18 00:00 01/18/18 23:46 98 01/18/18 20:33 01/18/18 20:00 98 01/18/18 15:55 99 01/18/18 12:09 01/18/18 12:00 100 01/18/18 08:32 99 01/18/18 08:11 Intake and Output 01/18/18 01/19/18 01/19/18 22:59 06:59 14:59 Output Total 300 1100 Balance -300 -1100 Output: Urine 300 1100 Other: Voiding Method Indwelling Catheter Indwelling Catheter Weight 55.1 kg PHYSICAL EXAMINATION: HEENT: Head is atraumatic, normocephalic. Pupils equal, round. Neck is supple. There is no elevated jugular venous pressure. HEART EXAMINATION: Heart S1 and S2 irregularly irregular CHEST EXAMINATION: Lungs are clear to auscultation and precussion. No chest wall tenderness is noted on palpation or with deep breathing. ABDOMEN: Soft, nontender. Bowel sounds are heard. No organomegaly noted. EXTREMITIES: 2+ peripheral pulses with no evidence of peripheral edema and no calf tenderness noted. NEUROLOGIC patient is awake, alert and oriented -3. . Results 01/17/18 20:56 01/19/18 07:01 Cardiac Enzymes 01/18/18 Range/Units 08:47 CK-MB (CK-2) 0.8 (0.0-2.4) ng/mL Troponin I 0.020 (0.000-0.034) ng/mL Comprehensive Metabolic Panel 01/19/18 Range/Units 07:01 Carbon Dioxide 26 (22-30) mmol/L BUN 12 (9-20) mg/dL Creatinine 0.64 L (0.66-1.25) mg/dL Current Medications Generic Name Dose Route Start Last Admin Trade Name Freq PRN Reason Stop Dose Admin Aspirin 325 mg 01/18/18 09:00 01/18/18 08:33 Aspirin PO 325 mg DAILY MARCIA Administration Atorvastatin Calcium 20 mg 01/18/18 21:00 01/18/18 22:30 Lipitor PO 20 mg HS MARCIA Administration Ceftriaxone Sodium 1,000 mg 01/19/18 09:00 Rocephin IVP Q24HR MARCIA Cyanocobalamin 1,000 mcg 01/24/18 09:00 Vitamin B-12 IM WEEKLY [facility] Digoxin 125 mcg 01/18/18 09:00 01/18/18 08:34 Lanoxin PO 125 mcg DAILY MARCIA Administration Docusate Sodium 100 mg 01/18/18 22:28 Colace PO BID PRN Constipation Enoxaparin Sodium 80 mg 01/18/18 21:15 01/18/18 22:30 Lovenox SQ 80 mg Q12HR MARCIA Administration Ferrous Sulfate 325 mg 01/18/18 12:30 01/18/18 18:07 Feosol PO 325 mg W/LUNCH MARCIA Administration Folic Acid 1 mg 01/18/18 09:00 01/18/18 08:34 Folic Acid PO 1 mg DAILY MARCIA Administration Latanoprost 1 drops 01/18/18 21:00 01/18/18 22:30 Xalatan 0.005% BOTH EYES 1 drops HS MARCIA Administration Losartan Potassium 25 mg 01/18/18 09:00 01/18/18 08:39 Cozaar PO 25 mg DAILY MARCIA Administration Metoprolol Tartrate 25 mg 01/18/18 09:00 01/18/18 22:30 Lopressor PO 25 mg BID MARCIA Administration Nitroglycerin 0.4 mg 01/17/18 22:50 Nitrostat SUBLINGUAL Q5M PRN Chest Pain Pantoprazole Sodium 40 mg 01/18/18 07:30 01/19/18 06:32 Protonix PO 40 mg [id number] MARCIA Administration Promethazine HCl 12.5 mg 01/18/18 00:00 01/19/18 06:08 Phenergan PO Not Given Q6HR MARCIA Spironolactone 25 mg 01/18/18 09:00 01/18/18 08:41 Aldactone PO 25 mg DAILY MARCIA Administration Warfarin Sodium 2 mg 01/20/18 18:00 Coumadin PO [id number] MARCIA Warfarin Sodium 4 mg 01/18/18 18:00 01/18/18 18:07 Coumadin PO 4 mg [id number] MARCIA Administration Intake and Output 01/18/18 01/19/18 01/19/18 22:59 06:59 14:59 Output Total 300 1100 Balance -300 -1100 Output: Urine 300 1100 Other: Voiding Method Indwelling Catheter Indwelling Catheter Weight 55.1 kg 01/17/18 20:56 01/19/18 07:01 EKG Interpretations (text) EKG shows atrial fibrillation with a moderately rapid ventricular response Assessment and Plan Plan: Assessment and plan #1 symptoms of exertional chest discomfort with associated shortness of breath. Continue maximal medical therapy. #2 known history of coronary artery disease with prior bypass surgery and PCI, most recently in November patient was in the hospital with a non-Q wave OK and subsequent GI bleed. #3 ischemic cardiomyopathy with prior AICD implant, AICD was interrogated and November and was functioning appropriately. #4 hypertension #5 hyperlipidemia #6 pancytopenia Plan We will decrease aspirin 81 mg daily, continue Coumadin to maintain an INR in the range of 2-2.5. Continue statin, beta dacia, losartan, and Aldactone. Further recommendations to follow. DNP note has been reviewed, I agree with a documented findings and plan of care. Patient was seen and examined.
[2018-01-19 08:45] LABS: Band Neutrophils % 1 %; Eosinophils # (M) 0.01 k/uL (0-0.7); Lymphocytes # (M) 0.35 k/uL (1.0-4.8); Metamyelocytes # (M) 0.01 k/uL (0); Metamyelocytes % 1 %; Monocytes # (M) 0.08 k/uL (0-1.0); Myelocytes # (M) 0.01 k/uL (0); Myelocytes % 1 %; Neutrophils % (M) 65 %; Nucleated Red Blood Cells 0 /100 WBC (0-0); Total Cells Counted 200
[2018-01-19 08:46] LABS: Poikilocytosis (M) Present
[2018-01-19 08:47] LABS: Platelet Count 84 k/uL (150-450)
[2018-01-19] MEDS: DIGOXIN 125 MCG TAB PO SCH (08:57)
[2018-01-19] MEDS: METOPROLOL TARTRATE 25 MG TAB PO SCH ×2 (08:57→19:46)
[2018-01-19] MEDS: FOLIC ACID 1 MG TAB PO SCH (08:57)
[2018-01-19] MEDS: ASPIRIN 81 MG PO SCH (08:58)
[2018-01-19] MEDS: ENOXAPARIN 80 MG/0.8 ML SYRINGE SQ SCH (08:58)
[2018-01-19] MEDS ORDERED: TAMSULOSIN 0.4 MG CAP.ER.24H PO SCH (09:00)
[2018-01-19] MEDS ORDERED: cefTRIAXone IN SWFI 1,000 MG/10 ML SYRINGE IVP SCH (09:00)
[2018-01-19 09:49] LABS: INR 1.5 (<1.2); Prothrombin Time 13.6 sec (9.0-12.0)
[2018-01-19] MEDS: LOSARTAN 25 MG TAB PO SCH (11:30)
[2018-01-19] MEDS: FERROUS SULFATE 325 MG TAB PO SCH (11:57)
--- NOTE | 2018-01-19 13:16 | CDI ---
Last Revision, July 2017 Documentation Clarification Form Date: 01/19/2018 1:14:00 PM From: Ellie TriplettLISHA, CCDS Admit Date: 01/17/2018 10:50:00 PM Patient Name: Oscar Bernstein Visit Number: [id number] Discharge Date: ATTENTION: The Clinical Documentation Specialists (CDI) and [facility] Coding Staff appreciate your assistance in clarifying documentation. Please respond to the clarification below the line at the bottom and electronically sign. The CDI & [facility] Coding staff will review the response and follow-up if needed. Please note: Queries are made part of the Legal Health Record. If you have any questions, please contact the author of this message via ITS. Dr. Eliseo Holley: Per the History & Physical: "Patient also found to have UTI & was started on antibiotics, Ceftriaxone. Possible catheter related." History/Risk factors: Hypertension, CAD, DC, CABG & PCI, Hyperlipidemia, Dementia. Clinical Indicators: Recent NSTEMI & UTI, discharged to rehab 12/17/17. Per the nursing documentation, the patient was admitted with a chronic Escudero catheter. Urinalysis: Light orange, Cloudy, 1+ protein, Tr ketones, Small blood, Large esterase, RBC 23, WBC 179. Urine culture: Gram neg bacilli, Group D Enterococcus Labs: Pancytopenia: WBC 2.3-1.3, RBC 3.67, Hgb 11.1, Hct 34.5, Pl Ct 134. Treatment: 01/17 Albuterol INH, Nitropaste, ASA, IV Cardizem drip (A Fib), Nitro sl. 01/18: IV Rocephin. In your professional opinion, can you please clarify the etiology of the UTI, if known? Escudero catheter UTI not related to catheter Other condition, please specify Unable to determine If an infective organism is present, please specify cause and effect relationship if applicable. Please continue to document in your progress notes and discharge summary in order to capture severity of illness and risk of mortality. Include clinical findings that support your diagnosis. MTDD
[2018-01-19] MEDS: PIPERACILLIN-TAZOBACTAM 3.375 GM in DEXTROSE/WATER 1 50ML.BAG IVPB SCH ×2 (15:42→23:43)
[2018-01-19] MEDS: WARFARIN 2 MG TAB PO SCH (17:45)
[2018-01-19] MEDS: LATANOPROST 0.005% OPHTH DROPS 2.5 ML BTL BOTH EYES SCH (19:46)
[2018-01-19] MEDS: ATORVASTATIN 20 MG TAB PO SCH (19:46)
[2018-01-19] MEDS ORDERED: ENOXAPARIN 60 MG/0.6 ML SYRINGE SQ SCH (21:00)
[2018-01-20] MEDS: PROMETHAZINE 25 MG TAB PO SCH ×3 (05:46→17:34)
[2018-01-20] MEDS: ASPIRIN 81 MG PO SCH (08:23)
[2018-01-20] MEDS: PANTOPRAZOLE 40 MG TABLET PO SCH (08:23)
[2018-01-20] MEDS: SPIRONOLACTONE 25 MG TAB PO SCH (08:23)
[2018-01-20] MEDS: FOLIC ACID 1 MG TAB PO SCH (08:23)
[2018-01-20] MEDS: DIGOXIN 125 MCG TAB PO SCH (08:23)
[2018-01-20] MEDS: FERROUS SULFATE 325 MG TAB PO SCH (08:23)
[2018-01-20] MEDS: METOPROLOL TARTRATE 25 MG TAB PO SCH (08:23)
[2018-01-20] MEDS: PIPERACILLIN-TAZOBACTAM 3.375 GM in DEXTROSE/WATER 1 50ML.BAG IVPB SCH ×2 (08:24→15:46)
[2018-01-20 09:48] LABS: Prothrombin Time 18.4 sec (9.0-12.0)
[2018-01-20 09:57] LABS: Anion Gap 12 mmol/L; Blood Urea Nitrogen 9 mg/dL (9-20); Calcium 7.9 mg/dL (8.4-10.2); Carbon Dioxide 23 mmol/L (22-30); Chloride 99 mmol/L (98-107); Glucose 104 mg/dL (74-99); Potassium 3.6 mmol/L (3.5-5.1); Sodium 134 mmol/L (137-145)
[2018-01-20 10:09] LABS: Anisocytosis Slight; HCT 30.7 % (39.0-53.0); HGB 10.1 gm/dL (13.0-17.5); Hypochromasia Slight; MCH 31.2 pg (25.0-35.0); MCV 94.7 fL (80.0-100.0); Macrocytosis Slight; Mean Platelet Volume 11.2; RBC 3.24 m/uL (4.30-5.90); RDW 18.6 % (11.5-15.5)
[2018-01-20 10:13] LABS: Platelet Count 84 k/uL (150-450); WBC 1.6 k/uL (3.8-10.6)
--- NOTE | 2018-01-20 11:37 | P.PN ---
Subjective Progress Note Date: 01/20/18 Mr. Sexton is a pleasant but frail 87-year-old male past medical history significant for paroxysmal atrial fibrillation on watermelon inspector anticoagulation with coumadin, coronary artery disease s/p 3-vessel bypass grafting, ischemic cardiomyopathy with prior AICD placement, hypertension, dyslipidemia and COPD. He follows with Dr. Gilliland in the office. We are following him on this admission for a-fib with RVR on admission. Laboratory data reviewed, WBC 1.6, hgb 10.1, plt 84, INR 2.0, sodium 134, potassium 3.6, creatinine 0.76. He denies symptoms of chest pain, shortness of breath, palpitations, nausea, vomiting or diaphoresis. Blood pressure 104/54 heart rate 96 afebrile. Telemetry tracings reveal a controlled ventricular response. Objective - Vital Signs Vital signs: Vital Signs Temp 98.1 F 01/20/18 06:02 Pulse 96 01/20/18 06:02 Resp 16 01/20/18 06:02 BP 104/54 01/20/18 06:02 Pulse Ox 95 01/20/18 06:02 Intake & Output 01/19/18 01/20/18 01/20/18 18:59 06:59 18:59 Intake Total 800 290 Output Total 650 Balance 800 -360 Weight 55.1 kg Intake: Intake, IV Titration 50 Amount Piperacillin-Tazobactam 3 50 .375 gm In Dextrose/Water 1 50ml.bag @ 12.5 mls/hr IVPB Q8HR [facility] Rx#: [id number] Oral 800 240 Tube Feeding 0 Output: Urine 650 Other: Voiding Method Indwelling Catheter Indwelling Catheter Indwelling Catheter # Voids 2 - Exam GENERAL: Well-appearing, well-nourished and in no acute distress. Frail. NECK: Supple without JVD or thyromegaly. LUNGS: Breath sounds clear to auscultation bilaterally. Respiration equal and unlabored. No wheezes, rales or rhonchi. HEART: Irregular rate and rhythm without murmurs, rubs or gallops. S1 and S2 heard. EXTREMITIES: Normal range of motion, no edema. No clubbing or cyanosis. Peripheral pulses intact and strong. - Labs CBC & Chem 7: 01/20/18 09:00 01/20/18 09:00 Labs: Abnormal Lab Results - Last 24 Hours (Table) 01/20/18 01/20/18 01/20/18 Range/Units 09:00 09:00 09:00 WBC 1.6 L* (3.8-10.6) k/uL RBC 3.24 L (4.30-5.90) m/uL Hgb 10.1 L (13.0-17.5) gm/dL Hct 30.7 L (39.0-53.0) % RDW 18.6 H (11.5-15.5) % Plt Count 84 L (150-450) k/uL PT 18.4 H (9.0-12.0) sec INR 2.0 H (<1.2) Sodium 134 L (137-145) mmol/L Glucose 104 H (74-99) mg/dL Calcium 7.9 L (8.4-10.2) mg/dL Microbiology - Last 24 Hours (Table) 01/17/18 20:56 Blood Culture - Preliminary Blood No Growth after 48 hours 01/18/18 01:00 Urine Culture - Preliminary Urine,Catheterized Gram Neg Bacilli Group D Enterococcus Assessment and Plan Assessment: ASSESSMENT 1. Symptoms of exertional chest discomfort with associated shortness of breath. Continue maximum medical therapy. 2. History of coronary artery disease status post bypass grafting 3. Ischemic cardiomyopathy status post AICD placement 4. Atrial fibrillation with rapid ventricular response, resolved. Currently maintaining a controlled ventricular response. 5. Hypertension 6. Dyslipidemia 7. Pancytopenia PLAN Continue current medical therapy. INR is therapeutic on current regimen of warfarin. We will continue to see him as needed during this hospitalization. Follow up with Dr. Gilliland upon discharge. Nurse Practitioner note has been reviewed, I agree with a documented findings and plan of care. Patient was seen and examined.
[2018-01-20] MEDS: LOSARTAN 25 MG TAB PO SCH (12:17)
--- NOTE | 2018-01-20 14:56 | P.PN ---
Subjective Progress Note Date: 01/19/18 87-year-old admitted post bypass grafting, or a myopathy status post AICD placement, admitted for atrial fibrillation with rapid ventricular rate presently rate controlled patient is also being treated for urinary tract infection catheter-related patient has Enterococcus faecalis and gram-negative bacilli gram-negative bacilli cultures are still pending patient was switched to Zosyn. Patient was actually admitted for chest pain and cardiology is not recommending any acute surgical intervention and they're recommending medical therapy at this time. Constitutional: Denied any fatigue denied any fever. Cardio vascular: denied any chest pain, palpitations Gastrointestinal denied any nausea vomiting Pulmonary: Denied any shortness of breath cough Neurologic denied any new focal deficits Objective - Vital Signs Vital signs: Vital Signs Temp 98.1 F 01/20/18 06:02 Pulse 96 01/20/18 06:02 Resp 16 01/20/18 06:02 BP 92/54 01/20/18 12:17 Pulse Ox 95 01/20/18 06:02 Intake & Output 01/19/18 01/20/18 01/20/18 18:59 06:59 18:59 Intake Total 800 290 Output Total 650 Balance 800 -360 Weight 55.1 kg Intake: Intake, IV Titration 50 Amount Piperacillin-Tazobactam 3 50 .375 gm In Dextrose/Water 1 50ml.bag @ 12.5 mls/hr IVPB Q8HR [facility] Rx#: [id number] Oral 800 240 Tube Feeding 0 Output: Urine 650 Other: Voiding Method Indwelling Catheter Indwelling Catheter Indwelling Catheter # Voids 2 - Exam PHYSICAL EXAMINATION: Patient is lying in the bed comfortably, no acute distress, awake alert and oriented 2-3 which is his baseline and thin built HEENT: Normocephalic. Neck is supple. Pupils reactive. Nostrils clear. Oral cavity is moist. Ears reveal no drainage. Neck reveals no JVD, carotid bruits, or thyromegaly. CHEST EXAMINATION: Trachea is central. Symmetrical expansion. Diminished bibasilar air entry. Lung salter clear to auscultation and percussion. CARDIAC: Normal S1, S2 with no gallops. No murmurs ABDOMEN: Soft. Bowel sounds normal. No organomegaly. No abdominal bruits. Extremities: reveal no edema. No clubbing or cyanosis Neurologically awake, alert, with well-coordinated movements. No focal deficits noted Skin: No rash or skin lesions. Psychiatric: Cooperative. Could not be assessed completely Musculoskeletal: No joint swelling or deformity. Normal range of motion. - Labs CBC & Chem 7: 01/20/18 09:00 01/20/18 09:00 Labs: Abnormal Lab Results - Last 24 Hours (Table) 01/20/18 01/20/18 01/20/18 Range/Units 09:00 09:00 09:00 WBC 1.6 L* (3.8-10.6) k/uL RBC 3.24 L (4.30-5.90) m/uL Hgb 10.1 L (13.0-17.5) gm/dL Hct 30.7 L (39.0-53.0) % RDW 18.6 H (11.5-15.5) % Plt Count 84 L (150-450) k/uL PT 18.4 H (9.0-12.0) sec INR 2.0 H (<1.2) Sodium 134 L (137-145) mmol/L Glucose 104 H (74-99) mg/dL Calcium 7.9 L (8.4-10.2) mg/dL Microbiology - Last 24 Hours (Table) 01/18/18 01:00 Urine Culture - Final Urine,Catheterized Serratia marcescens Enterococcus faecalis 01/17/18 20:56 Blood Culture - Preliminary Blood No Growth after 48 hours Assessment and Plan Plan: Assessment and Plan Assessment: Atrial fibrillation with a rapid ventricular rate. Heart rate is controlled Subtherapeutic INR Acute urinary tract infection. Possible catheter-related. Patient was switched to Zosyn because of enterococcus and other gram-negative bacilli which can be Pseudomonas because it's catheter-related infection. Recent history of non-ST elevated [place],, pleasant chest pain cardiology is recommending medical management History of paroxysmal atrial fibrillation on anticoagulation Ischemic cardiomyopathy status post ICD ejection fraction 20-25%, patient is not requiring Lasix is on NASIMA inhibitor and aldactone. Patient will not require bridging which will be discontinued Coronary artery disease with history of CABG and PCI Hypertension Hyperlipidemia Dementia DVT prophylaxis patient is currently on Coumadin
--- NOTE | 2018-01-20 15:01 | P.DS ---
Providers Date of admission: 01/17/18 22:50 Attending physician: Zhao Tineo Consults: 01/17/18 22:51 Consult Physician Urgent Consulting Provider: Gabriela Salguero Consult Reason/Comments: a-fib with RVR and cp Do you want consulting provider notified?: Yes Primary care physician: Britney Amber [facility] Course: 87-year-old admitted post bypass grafting, or a myopathy status post AICD placement, admitted for atrial fibrillation with rapid ventricular rate presently rate controlled patient is also being treated for urinary tract infection catheter-related patient has Enterococcus faecalis and gram-negative bacilli gram-negative bacilli cultures are still pending patient was switched to Zosyn. Patient was actually admitted for chest pain and cardiology is not recommending any acute surgical intervention and they're recommending medical therapy at this time. 01/20/2018 Patient is doing much better patient and the feels he is ready to go. Patient will be discharged to subacute rehabilitation today patient has enterococcus in urine for which am discharging on Augmentin for about a week and Serratia for which I'll discharge him on levofloxacin unfortunately have use antibiotics. Patient looks better today PHYSICAL EXAMINATION: Patient is lying in the bed comfortably, no acute distress, awake alert and oriented 2-3 which is his baseline and thin built HEENT: Normocephalic. Neck is supple. Pupils reactive. Nostrils clear. Oral cavity is moist. Ears reveal no drainage. Neck reveals no JVD, carotid bruits, or thyromegaly. CHEST EXAMINATION: Trachea is central. Symmetrical expansion. Diminished bibasilar air entry. Lung salter clear to auscultation and percussion. CARDIAC: Normal S1, S2 with no gallops. No murmurs ABDOMEN: Soft. Bowel sounds normal. No organomegaly. No abdominal bruits. Extremities: reveal no edema. No clubbing or cyanosis Neurologically awake, alert, with well-coordinated movements. No focal deficits noted Skin: No rash or skin lesions. Psychiatric: Cooperative. Could not be assessed completely Musculoskeletal: No joint swelling or deformity. Normal range of motion. Assessment and Plan Assessment: Atrial fibrillation with a rapid ventricular rate. Heart rate is controlled Acute urinary tract infection. Possible catheter-related. Patient was switched to Zosyn because of enterococcus and other gram-negative bacilli which can be Pseudomonas because it's catheter-related infection. Recent history of non-ST elevated [place],, pleasant chest pain cardiology is recommending medical management History of paroxysmal atrial fibrillation on anticoagulation, patient's INR is 2 today Ischemic cardiomyopathy status post ICD ejection fraction 20-25%, patient is not requiring Lasix is on NASIMA inhibitor and aldactone. Patient is not requiring Lasix at this time Coronary artery disease with history of CABG and PCI Hypertension Hyperlipidemia Dementia DVT prophylaxis patient is currently on Coumadin Leukopenia secondary to infection Patient Condition at Discharge: Fair Plan - Discharge Summary Discharge Rx Participant: No New Discharge Prescriptions: New Amoxic-Pot Clav 875-125Mg [Augmentin 875-125] 1 tab PO Q12HR #14 tablet Levofloxacin [Levaquin] 500 mg PO DAILY 3 Days #5 tab Continue Latanoprost [Xalatan 0.005%] 1 drop BOTH EYES HS Atorvastatin [Lipitor] 20 mg PO HS Digoxin [Lanoxin] 125 mcg PO DAILY Spironolactone [Aldactone] 25 mg PO DAILY #30 tab Ferrous Sulfate [Iron (65 MG Elemental)] 325 mg PO W/LUNCH tab Metoprolol Tartrate [Lopressor] 25 mg PO BID tab Nitroglycerin Sl Tabs [Nitrostat] 0.4 mg SUBLINGUAL Q5M PRN tab PRN Reason: Chest Pain Warfarin [Coumadin] 2 mg PO SUWE Warfarin [Coumadin] 4 mg PO MOTUTHFRSA Promethazine [Phenergan] 12.5 mg PO Q6HR PRN PRN Reason: Nausea Losartan [Cozaar] 12.5 mg PO DAILY Omeprazole 20 mg PO DAILY Folic Acid 1 mg PO DAILY Cyanocobalamin [Vitamin B-12 Injection] 1,000 mcg IM Q7D Tamsulosin HCl [Flomax] 0.4 mg PO DAILY Docusate [Colace] 100 mg PO BID PRN PRN Reason: Constipation Aspirin 81 mg PO DAILY Discharge Medication List Atorvastatin [Lipitor] 20 mg PO HS 12/06/17 [History] Digoxin [Lanoxin] 125 mcg PO DAILY 12/06/17 [History] Latanoprost [Xalatan 0.005%] 1 drop BOTH EYES HS 12/06/17 [History] Spironolactone [Aldactone] 25 mg PO DAILY #30 tab 12/11/17 [Rx] Ferrous Sulfate [Iron (65 MG Elemental)] 325 mg PO W/LUNCH tab 12/17/17 [Rx] Metoprolol Tartrate [Lopressor] 25 mg PO BID tab 12/17/17 [Rx] Nitroglycerin Sl Tabs [Nitrostat] 0.4 mg SUBLINGUAL Q5M PRN tab 12/17/17 [Rx] Warfarin [Coumadin] 2 mg PO SUWE 12/17/17 [History] Warfarin [Coumadin] 4 mg PO MOTUTHFRSA 12/17/17 [History] Cyanocobalamin [Vitamin B-12 Injection] 1,000 mcg IM Q7D 01/17/18 [History] Folic Acid 1 mg PO DAILY 01/17/18 [History] Losartan [Cozaar] 12.5 mg PO DAILY 01/17/18 [History] Omeprazole 20 mg PO DAILY 01/17/18 [History] Promethazine [Phenergan] 12.5 mg PO Q6HR PRN 01/17/18 [History] Aspirin 81 mg PO DAILY 01/18/18 [History] Docusate [Colace] 100 mg PO BID PRN 01/18/18 [History] Tamsulosin HCl [Flomax] 0.4 mg PO DAILY 01/18/18 [History] Amoxic-Pot Clav 875-125Mg [Augmentin 875-125] 1 tab PO Q12HR #14 tablet [Rx] Levofloxacin [Levaquin] 500 mg PO DAILY 3 Days #5 tab 01/20/18 [Rx] Follow up Appointment(s)/Referral(s): Zaina Gilliland MD [STAFF PHYSICIAN] - 2 Weeks Britney Clark DO [Primary Care Provider] - 1 Week Discharge Disposition: TRANSFER TO SNF/ECF
[2018-01-20 15:22] VITALS: BMI 16.9
[2018-01-20 15:48] VITALS: BP 105/59; PULSE 90; RESP 19; TEMP 96.9
[2018-01-20] MEDS ORDERED: WARFARIN 2 MG TAB PO SCH (18:00)
[2018-01-24] MEDS ORDERED: CYANOCOBALAMIN 1,000 MCG/ML 1 ML VIAL IM SCH (09:00)
== END 2018-01-20 17:45 | disposition home health service (06) | DRG 309 ==
LOC: EC 20:36 → 6SEL 22:50 → 4MS4W 01-19 21:40
PROVIDERS: ADMIT Hospitalist; ATTEND Hospitalist
DX: I48.0 Paroxysmal atrial fibrillation (principal); T83.511A Infection and inflammatory reaction due to indwelling urethral catheter, initial encounter; N39.0 Urinary tract infection, site not specified; D61.818 Other pancytopenia; B95.2 Enterococcus as the cause of diseases classified elsewhere; E78.5 Hyperlipidemia, unspecified; F03.90 Unspecified dementia, unspecified severity, without behavioral disturbance, psychotic disturbance, mood disturbance, and anxiety; I10 Essential (primary) hypertension; I25.10 Atherosclerotic heart disease of native coronary artery without angina pectoris; I25.2 Old myocardial infarction; I25.5 Ischemic cardiomyopathy; J44.9 Chronic obstructive pulmonary disease, unspecified; R09.02 Hypoxemia; R79.1 Abnormal coagulation profile; Y84.8 Other medical procedures as the cause of abnormal reaction of the patient, or of later complication, without mention of misadventure at the time of the procedure; Z79.01 Long term (current) use of anticoagulants; Z79.82 Long term (current) use of aspirin; Z79.899 Other long term (current) drug therapy; Z87.891 Personal history of nicotine dependence; Z95.1 Presence of aortocoronary bypass graft; Z95.5 Presence of coronary angioplasty implant and graft; Z95.810 Presence of automatic (implantable) cardiac defibrillator
CPT/HCPCS: 36415; 71046; 80048; 80053; 80061; 80162; 81001; 82550; 82553; 83880; 84484; 85025; 85027; 85610; 85730; 87040; 87077; 87086; 87186; 93005; 94640; 96365; 96366; 96375; 99285

== ENCOUNTER 2018-01-26 12:17 | Inpatient (IN) | payer MEDICARE ==
[2018-01-26] MEDS ORDERED: IPRATROPIUM-ALBUTEROL 3 ML NEB INHALATION STA (13:02)
--- NOTE | 2018-01-26 13:05 | ED ---
General Adult HPI - General Chief complaint: Shortness of Breath Stated complaint: weakness Time Seen by Provider: 01/26/18 12:28 Source: patient, EMS, RN notes reviewed, old records reviewed Mode of arrival: EMS Limitations: no limitations - History of Present Illness Initial comments: 87-year-old male presenting for evaluation of dyspnea. Patient states over the past several days he has had worsening shortness of breath. He states he's had a mild cough which is productive of white sputum. No fever or chills. He had recent admission to the hospital dyspnea and congestive heart failure.. He does have an indwelling Escudero catheter which according to family has been good urine output which is clear yellow. Denies any abdominal pain, nausea, vomiting. Denies chest pain. He has remote history of tobacco use, no formal diagnosis of asthma or COPD he denies lower extremity pain or swelling. No history of heart failure according to patient. - Related Data Home Medications Medication Instructions Recorded Confirmed Atorvastatin [Lipitor] 20 mg PO HS 12/06/17 01/26/18 Digoxin [Lanoxin] 125 mcg PO DAILY 12/06/17 01/26/18 Latanoprost [Xalatan 0.005%] 1 drop BOTH EYES HS 12/06/17 01/26/18 Warfarin [Coumadin] 2 mg PO SUMOTUWETHSA 12/17/17 01/26/18 Warfarin [Coumadin] 4 mg PO FR 12/17/17 01/26/18 Cyanocobalamin [Vitamin B-12 1,000 mcg IM FR 01/17/18 01/26/18 Injection] Folic Acid 1 mg PO DAILY 01/17/18 01/26/18 Losartan [Cozaar] 25 mg PO DAILY 01/17/18 01/26/18 Omeprazole 20 mg PO DAILY 01/17/18 01/26/18 Promethazine [Phenergan] 12.5 mg PO Q6HR PRN 01/17/18 01/26/18 Tamsulosin HCl [Flomax] 0.4 mg PO HS 01/18/18 01/26/18 Previous Rx's Medication Instructions Recorded Spironolactone [Aldactone] 25 mg PO DAILY #30 tab 12/11/17 Ferrous Sulfate [Iron (65 MG 325 mg PO W/LUNCH tab 12/17/17 Elemental)] Metoprolol Tartrate [Lopressor] 25 mg PO BID tab 12/17/17 Nitroglycerin Sl Tabs [Nitrostat] 0.4 mg SUBLINGUAL Q5M PRN tab 12/17/17 Allergies Allergy/AdvReac Type Severity Reaction Status Date / Time No Known Allergies Allergy Verified 01/26/18 13:26 Review of Systems ROS Statement: Those systems with pertinent positive or pertinent negative responses have been documented in the HPI. ROS Other: All systems not noted in ROS Statement are negative. Past Medical History Past Medical History: Atrial Fibrillation, Coronary Artery Disease (CAD), Chest Pain / Angina, Hypertension Additional Past Medical History / Comment(s): [place] in 1991 with two stents placed. Last Myocardial Infarction Date:: 1991 History of Any Multi-Drug Resistant Organisms: None Reported Past Surgical History: AICD, Coronary Bypass/CABG, Pacemaker Additional Past Surgical History / Comment(s): CABG x3. Past Anesthesia/Blood Transfusion Reactions: No Reported Reaction Type of Cardiac Device: Permanent Pacemaker Device Placement Date:: 2012 Past Psychological History: No Psychological Hx Reported Smoking Status: Former smoker Past Alcohol Use History: None Reported Past Drug Use History: None Reported - Past Family History Father History Unknown: Yes Mother History Unknown: Yes General Exam Limitations: no limitations General appearance: alert, cachectic Head exam: Present: atraumatic, normocephalic Eye exam: Present: normal appearance. Absent: PERRL, EOMI ENT exam: Present: normal exam Neck exam: Present: normal inspection, tenderness Respiratory exam: Present: rales, decreased breath sounds Cardiovascular Exam: Present: regular rate, irregular rhythm GI/Abdominal exam: Present: soft. Absent: distended, tenderness Extremities exam: Present: normal inspection, normal capillary refill. Absent: pedal edema, calf tenderness Neurological exam: Present: alert, oriented X3, CN II-XII intact. Absent: motor sensory deficit Psychiatric exam: Present: normal affect, normal mood Skin exam: Present: warm, dry, intact. Absent: cyanosis, diaphoretic Course Vital Signs 01/26/18 01/26/18 01/26/18 12:27 13:30 13:43 Temperature 98.2 F Pulse Rate 65 90 76 Respiratory 20 18 16 Rate Blood Pressure 104/55 100/55 O2 Sat by Pulse 95 97 Oximetry 01/26/18 14:27 Temperature Pulse Rate 99 Respiratory 18 Rate Blood Pressure 92/51 O2 Sat by Pulse 98 Oximetry EKG Findings - EKG Comments: EKG Findings:: EKG: Atrial fibrillation with PVC low-voltage rate of 92, QRS duration 92, QTC 408 ST segment depression in the lateral precordium Medical Decision Making - Medical Decision Making 87-year-old male presenting with worsening dyspnea. Medical record is reviewed , patient does have congestive heart failure with low EF at 20%. He has a defibrillator placed. Laboratory studies reveal white blood cell count which is 1.4 which appears chronic for this patient. Hemoglobin 11 3. INR is therapeutic at 2.7. BNP is significantly elevated at 3500. Chest x-ray shows cardiomegaly, bilateral pleural effusions on the background of COPD. The heart size has worsened and EKG is low-voltage. Repeat echo will be obtained for concern of pericardial effusion. Patient will be admitted for IV diuresis. - Lab Data Result diagrams: 01/26/18 12:36 01/26/18 12:36 Lab Results 01/26/18 01/26/18 01/26/18 Range/Units 12:36 12:36 12:36 WBC 1.4 L* (3.8-10.6) k/uL RBC 3.72 L (4.30-5.90) m/uL Hgb 11.3 L (13.0-17.5) gm/dL Hct 35.2 L (39.0-53.0) % MCV 94.7 (80.0-100.0) fL MCH 30.4 (25.0-35.0) pg MCHC 32.1 (31.0-37.0) g/dL RDW 18.5 H (11.5-15.5) % Plt Count 101 L (150-450) k/uL Neutrophils % (Manual) 77 % Lymphocytes % (Manual) 12 % Monocytes % (Manual) 10 % Basophils % (Manual) 1 % Neutrophils # (Manual) 1.08 L (1.3-7.7) k/uL Lymphocytes # (Manual) 0.17 L (1.0-4.8) k/uL Monocytes # (Manual) 0.14 (0-1.0) k/uL Basophils # (Manual) 0.01 (0-0.2) k/uL Nucleated RBCs 0 (0-0) /100 WBC Manual Slide Review Performed Hypochromasia Slight Poikilocytosis Slight Anisocytosis Slight Spherocytes Present Fragmented RBCs Present PT (9.0-12.0) sec INR (<1.2) APTT (22.0-30.0) sec Sodium 131 L (137-145) mmol/L Potassium 4.4 (3.5-5.1) mmol/L Chloride 97 L (98-107) mmol/L Carbon Dioxide 25 (22-30) mmol/L Anion Gap 9 mmol/L BUN 11 (9-20) mg/dL Creatinine 0.60 L (0.66-1.25) mg/dL Est GFR (CKD-EPI)AfAm >90 (>60 ml/min/1.73 sqM) Est GFR (CKD-EPI)NonAf >90 (>60 ml/min/1.73 sqM) Glucose 103 H (74-99) mg/dL Calcium 7.9 L (8.4-10.2) mg/dL Magnesium 1.8 (1.6-2.3) mg/dL Total Bilirubin 0.5 (0.2-1.3) mg/dL AST 19 (17-59) U/L ALT 29 (21-72) U/L Alkaline Phosphatase 118 (38-126) U/L Total Creatine Kinase <20 L (55-170) U/L CK-MB (CK-2) 0.4 (0.0-2.4) ng/mL CK-MB (CK-2) Rel Index Troponin I 0.015 (0.000-0.034) ng/mL NT-Pro-B Natriuret Pep pg/mL Total Protein 5.5 L (6.3-8.2) g/dL Albumin 2.7 L (3.5-5.0) g/dL 01/26/18 01/26/18 Range/Units 12:36 12:36 WBC (3.8-10.6) k/uL RBC (4.30-5.90) m/uL Hgb (13.0-17.5) gm/dL Hct (39.0-53.0) % MCV (80.0-100.0) fL MCH (25.0-35.0) pg MCHC (31.0-37.0) g/dL RDW (11.5-15.5) % Plt Count (150-450) k/uL Neutrophils % (Manual) % Lymphocytes % (Manual) % Monocytes % (Manual) % Basophils % (Manual) % Neutrophils # (Manual) (1.3-7.7) k/uL Lymphocytes # (Manual) (1.0-4.8) k/uL Monocytes # (Manual) (0-1.0) k/uL Basophils # (Manual) (0-0.2) k/uL Nucleated RBCs (0-0) /100 WBC Manual Slide Review Hypochromasia Poikilocytosis Anisocytosis Spherocytes Fragmented RBCs PT 24.0 H (9.0-12.0) sec INR 2.7 H (<1.2) APTT 31.3 H (22.0-30.0) sec Sodium (137-145) mmol/L Potassium (3.5-5.1) mmol/L Chloride (98-107) mmol/L Carbon Dioxide (22-30) mmol/L Anion Gap mmol/L BUN (9-20) mg/dL Creatinine (0.66-1.25) mg/dL Est GFR (CKD-EPI)AfAm (>60 ml/min/1.73 sqM) Est GFR (CKD-EPI)NonAf (>60 ml/min/1.73 sqM) Glucose (74-99) mg/dL Calcium (8.4-10.2) mg/dL Magnesium (1.6-2.3) mg/dL Total Bilirubin (0.2-1.3) mg/dL AST (17-59) U/L ALT (21-72) U/L Alkaline Phosphatase (38-126) U/L Total Creatine Kinase (55-170) U/L CK-MB (CK-2) (0.0-2.4) ng/mL CK-MB (CK-2) Rel Index Troponin I (0.000-0.034) ng/mL NT-Pro-B Natriuret Pep 3530 pg/mL Total Protein (6.3-8.2) g/dL Albumin (3.5-5.0) g/dL Disposition Clinical Impression: Congestive heart failure Disposition: ADMITTED IP TO THIS [facility] Condition: Serious Is patient prescribed a controlled substance at d/c from ED?: No Referrals: Britney Clark DO [Primary Care Provider] - 1-2 days Decision to Admit Reason: Admit from EC Decision Date: 01/26/18 Decision Time: 14:54
[2018-01-26 13:16] LABS: Anisocytosis Slight; HCT 35.2 % (39.0-53.0); HGB 11.3 gm/dL (13.0-17.5); Hypochromasia Slight; MCH 30.4 pg (25.0-35.0); MCHC 32.1 g/dL (31.0-37.0); MCV 94.7 fL (80.0-100.0); Mean Platelet Volume 10.6; Platelet Count 101 k/uL (150-450); Poikilocytosis Slight; RBC 3.72 m/uL (4.30-5.90); RDW 18.5 % (11.5-15.5)
[2018-01-26 13:25] LABS: ALT 29 U/L (21-72); AST 19 U/L (17-59); Albumin 2.7 g/dL (3.5-5.0); Alkaline Phosphatase 118 U/L (38-126); Anion Gap 9 mmol/L; Blood Urea Nitrogen 11 mg/dL (9-20); Calcium 7.9 mg/dL (8.4-10.2); Carbon Dioxide 25 mmol/L (22-30); Chloride 97 mmol/L (98-107); Glucose 103 mg/dL (74-99); INR 2.7 (<1.2); Magnesium 1.8 mg/dL (1.6-2.3); Partial Thromboplastin Time 31.3 sec (22.0-30.0); Potassium 4.4 mmol/L (3.5-5.1); Sodium 131 mmol/L (137-145); Total Bilirubin 0.5 mg/dL (0.2-1.3); Total Protein 5.5 g/dL (6.3-8.2)
[2018-01-26 13:28] LABS: WBC 1.4 k/uL (3.8-10.6)
--- NOTE | 2018-01-26 13:33 | XR ---
EXAMINATION TYPE: XR chest 2V DATE OF EXAM: 01/26/2018 COMPARISON: Chest x-ray January 17, 2018. CTA chest December 05, 2017. HISTORY: Difficulty in breathing. TECHNIQUE: Frontal and lateral views of the chest are obtained. FINDINGS: Overlying sternal wires are redemonstrated. Cardiac silhouette size is more prominent and u pper limits of normal. There are slightly larger small bilateral pleural effusions on current study. Background chronic emphysematous change is seen. There is redemonstration of dual-lead pacemaker/AICD . Osseous structures are intact. IMPRESSION: Correlate for worsening CHF exacerbation on background of chronic emphysematous change a s there is increasing cardiac silhouette prominence and small bilateral pleural effusions noted.
[2018-01-26 13:42] LABS: Creatine Kinase <20 U/L (55-170)
[2018-01-26 13:52] LABS: Basophils # (M) 0.01 k/uL (0-0.2); Lymphocytes # (M) 0.17 k/uL (1.0-4.8); Monocytes # (M) 0.14 k/uL (0-1.0); Neutrophils # (M) 1.08 k/uL (1.3-7.7); Neutrophils % (M) 77 %; Nucleated Red Blood Cells 0 /100 WBC (0-0); Total Cells Counted 100
[2018-01-26 13:53] LABS: RBC Fragments Present; Spherocytes Present
[2018-01-26 13:55] LABS: Creatine Kinase MB 0.4 ng/mL (0.0-2.4); Troponin I 0.015 ng/mL (0.000-0.034)
[2018-01-26] MEDS ORDERED: FUROSEMIDE 10 MG/ML 2 ML VIAL IV STA (14:10)
[2018-01-26] MEDS ORDERED: NALOXONE 0.4 MG/ML 1 ML VIAL IV PRN (14:49)
[2018-01-26] MEDS ORDERED: ACETAMINOPHEN TAB 325 MG TAB PO PRN (14:49)
[2018-01-26] MEDS ORDERED: PROMETHAZINE 25 MG TAB PO PRN (17:10)
[2018-01-26] MEDS ORDERED: NITROGLYCERIN SL TABS 0.4 MG TAB SUBLINGUAL PRN (17:10)
--- NOTE | 2018-01-26 17:28 | P.HPIM ---
History of Present Illness 85-year-old the male came in with complaints of shortness of breath patient is known patient to me from his last hospitalization. Patient has ejection fraction of 20% has an AICD in place patient was admitted for non-ST elevation microinfarction during his last hospitalization. This time he comes in his shortness of breath and orthopnea unsure about proximal nocturnal dyspnea. Patient doesn't use oxygen at home is on 3 L of oxygen now. Patient is admitted for acute respiratory failure secondary to congestive heart failure exacerbation. During his last hospitalization patient did not require any Lasix patient was not discharged on Lasix although patient was discharged on potassium sparing diuretic and lisinopril at that time. Patient was also treated for urinary tract infection for a cath-related patient had E. coli and Serratia at that time patient was discharged on 2 antibiotics he is done with antibiotic and patient is still up with Augmentin for couple more days which she will be restarted back and patient does have history of atrial fibrillation on Coumadin which will be resumed and patient the INR is therapeutic at this time. Patient does have elevated BNP does have minimally elevated JVD mild pulmonary edema on the chest x-ray along with bilateral pleural effusions. Review of Systems REVIEW OF SYSTEMS: CONSTITUTIONAL: No fever, no malaise, no fatigue. HEENT: No recent visual problems or hearing problems. Denied any sore throat. CARDIOVASCULAR: No chest pain,, no palpitations, no syncope. PULMONARY: no cough, no hemoptysis. GASTROINTESTINAL: No diarrhea, no nausea, no vomiting, no abdominal pain. Normoactive bowel sounds. NEUROLOGICAL: No headaches, no weakness, no numbness. HEMATOLOGICAL: Denies any bleeding or petechiae. GENITOURINARY: Denies any burning micturition, frequency, or urgency. MUSCULOSKELETAL/RHEUMATOLOGICAL: Denies any joint pain, swelling, or any muscle pain. ENDOCRINE: Denies any polyuria or polydipsia. The rest of the 14-point review of systems is negative. Past Medical History Past Medical History: Atrial Fibrillation, Coronary Artery Disease (CAD), Chest Pain / Angina, Hypertension Additional Past Medical History / Comment(s): [place] in 1991 with two stents placed. Last Myocardial Infarction Date:: 1991 History of Any Multi-Drug Resistant Organisms: None Reported Past Surgical History: AICD, Coronary Bypass/CABG, Pacemaker Additional Past Surgical History / Comment(s): CABG x3. Past Anesthesia/Blood Transfusion Reactions: No Reported Reaction Type of Cardiac Device: Permanent Pacemaker Device Placement Date:: 2012 Past Psychological History: No Psychological Hx Reported Smoking Status: Former smoker Past Alcohol Use History: None Reported Past Drug Use History: None Reported - Past Family History Father History Unknown: Yes Mother History Unknown: Yes Medications and Allergies Home Medications Medication Instructions Recorded Confirmed Type Atorvastatin [Lipitor] 20 mg PO HS 12/06/17 01/26/18 History Digoxin [Lanoxin] 125 mcg PO DAILY 12/06/17 01/26/18 History Latanoprost [Xalatan 0.005%] 1 drop BOTH EYES HS 12/06/17 01/26/18 History Spironolactone [Aldactone] 25 mg PO DAILY #30 tab 12/11/17 01/26/18 Rx Ferrous Sulfate [Iron (65 MG 325 mg PO W/LUNCH tab 12/17/17 01/26/18 Rx Elemental)] Metoprolol Tartrate [Lopressor] 25 mg PO BID tab 12/17/17 01/26/18 Rx Nitroglycerin Sl Tabs [Nitrostat] 0.4 mg SUBLINGUAL Q5M PRN tab 12/17/17 Rx Warfarin [Coumadin] 2 mg PO SUMOTUWETHSA 12/17/17 01/26/18 History Warfarin [Coumadin] 4 mg PO FR 12/17/17 01/26/18 History Cyanocobalamin [Vitamin B-12 1,000 mcg IM FR 01/17/18 01/26/18 History Injection] Folic Acid 1 mg PO DAILY 01/17/18 01/26/18 History Losartan [Cozaar] 25 mg PO DAILY 01/17/18 01/26/18 History Omeprazole 20 mg PO DAILY 01/17/18 01/26/18 History Promethazine [Phenergan] 12.5 mg PO Q6HR PRN 01/17/18 01/26/18 History Tamsulosin HCl [Flomax] 0.4 mg PO HS 01/18/18 01/26/18 History Allergies Allergy/AdvReac Type Severity Reaction Status Date / Time No Known Allergies Allergy Verified 01/26/18 13:26 Physical Exam Vitals: Vital Signs Temp Pulse Resp BP Pulse Ox 01/26/18 15:51 98.2 F 98 18 112/71 97 01/26/18 14:27 99 18 92/51 98 01/26/18 13:43 76 16 01/26/18 13:30 90 18 100/55 97 01/26/18 12:27 98.2 F 65 20 104/55 95 Intake and Output 01/26/18 01/26/18 01/26/18 06:59 14:59 22:59 Other: Weight 63.503 kg PHYSICAL EXAMINATION: GENERAL: The patient is alert and oriented x3, not in any acute distress. Thin built. HEENT: Pupils are round and equally reacting to light. EOMI. No scleral icterus. No conjunctival pallor. Normocephalic, atraumatic. No pharyngeal erythema. No thyromegaly. CARDIOVASCULAR: S1 and S2 present. No murmurs, rubs, or gallops. Minimally elevated JVD does have S3 PULMONARY: Chest is clear to auscultation, no wheezing or crackles. ABDOMEN: Soft, nontender, nondistended, normoactive bowel sounds. No palpable organomegaly. MUSCULOSKELETAL: No joint swelling or deformity. EXTREMITIES: No cyanosis, clubbing, or pedal edema. NEUROLOGICAL: Gross neurological examination did not reveal any focal deficits. SKIN: No rashes. Results CBC & Chem 7: 01/26/18 12:36 01/26/18 12:36 Labs: Abnormal Lab Results - Last 24 Hours (Table) 01/26/18 01/26/18 01/26/18 Range/Units 12:36 12:36 12:36 WBC 1.4 L* (3.8-10.6) k/uL RBC 3.72 L (4.30-5.90) m/uL Hgb 11.3 L (13.0-17.5) gm/dL Hct 35.2 L (39.0-53.0) % RDW 18.5 H (11.5-15.5) % Plt Count 101 L (150-450) k/uL Neutrophils # (Manual) 1.08 L (1.3-7.7) k/uL Lymphocytes # (Manual) 0.17 L (1.0-4.8) k/uL PT (9.0-12.0) sec INR (<1.2) APTT (22.0-30.0) sec Sodium 131 L (137-145) mmol/L Chloride 97 L (98-107) mmol/L Creatinine 0.60 L (0.66-1.25) mg/dL Glucose 103 H (74-99) mg/dL Calcium 7.9 L (8.4-10.2) mg/dL Total Creatine Kinase <20 L (55-170) U/L Total Protein 5.5 L (6.3-8.2) g/dL Albumin 2.7 L (3.5-5.0) g/dL 01/26/18 Range/Units 12:36 WBC (3.8-10.6) k/uL RBC (4.30-5.90) m/uL Hgb (13.0-17.5) gm/dL Hct (39.0-53.0) % RDW (11.5-15.5) % Plt Count (150-450) k/uL Neutrophils # (Manual) (1.3-7.7) k/uL Lymphocytes # (Manual) (1.0-4.8) k/uL PT 24.0 H (9.0-12.0) sec INR 2.7 H (<1.2) APTT 31.3 H (22.0-30.0) sec Sodium (137-145) mmol/L Chloride (98-107) mmol/L Creatinine (0.66-1.25) mg/dL Glucose (74-99) mg/dL Calcium (8.4-10.2) mg/dL Total Creatine Kinase (55-170) U/L Total Protein (6.3-8.2) g/dL Albumin (3.5-5.0) g/dL Assessment and Plan Plan: -Acute hypoxic respiratory failure: Secondary to congestive heart failure chronic systolic dysfunction with acute exacerbation patient that Lasix dose will be increased to 40 IV daily. Patient may require 20 oral daily of Lasix I' m expecting improvement in his respiratory status by tomorrow cardiology was consulted. -Chronic congestive heart failure with acute exacerbation patient has an AICD in place. Losartan will be continued aldactone will be continued. Atrial fibrillation: Rate controlled at this time digoxin will be continued digoxin level will be obtained and the continue with Coumadin at present dose and patient is therapeutic on anticoagulation -Gastroesophageal reflux disease -Chronic Escudero catheter secondary to benign prostatic hypertrophy on tamsulosin supposed to follow-up with urology as an outpatient on Thursday hopefully he can be discharged by them -Generalized deconditioning PT and OT consultation -Hyperlipidemia continue with Lipitor. -Coronary artery disease medical management was recommended during his previous hospitalization when he was admitted for non-ST elevation microinfarction.
[2018-01-26] MEDS ORDERED: WARFARIN 2 MG TAB PO SCH (18:00)
[2018-01-26] MEDS ORDERED: FUROSEMIDE 10 MG/ML 2 ML VIAL IV SCH (21:00)
[2018-01-26] MEDS: ATORVASTATIN 20 MG TAB PO SCH (21:19)
[2018-01-26] MEDS: METOPROLOL TARTRATE 25 MG TAB PO SCH (21:19)
[2018-01-26] MEDS: TAMSULOSIN 0.4 MG CAP.ER.24H PO SCH (21:28)
[2018-01-26] MEDS: FUROSEMIDE 10 MG/ML 4 ML VIAL IV SCH (21:28)
[2018-01-26] MEDS: LATANOPROST 0.005% OPHTH DROPS 2.5 ML BTL BOTH EYES SCH (23:12)
[2018-01-26] MEDS: AMOXIC-POT CLAV 875-125MG 1 EACH TAB PO SCH (23:12)
[2018-01-27] MEDS: PANTOPRAZOLE 40 MG TABLET PO SCH (06:08)
[2018-01-27 06:17] LABS: Prothrombin Time 35.6 sec (9.0-12.0)
[2018-01-27 06:35] LABS: Anion Gap 7 mmol/L; Blood Urea Nitrogen 12 mg/dL (9-20); Carbon Dioxide 29 mmol/L (22-30); Chloride 96 mmol/L (98-107); Glucose 78 mg/dL (74-99); Potassium 4.1 mmol/L (3.5-5.1); Sodium 132 mmol/L (137-145)
[2018-01-27] MEDS ORDERED: DIGOXIN 125 MCG TAB PO SCH (09:00)
[2018-01-27] MEDS: AMOXIC-POT CLAV 875-125MG 1 EACH TAB PO SCH (10:49)
[2018-01-27] MEDS: LOSARTAN 25 MG TAB PO SCH (10:49)
[2018-01-27] MEDS: FUROSEMIDE 10 MG/ML 4 ML VIAL IV SCH ×2 (10:49→20:36)
[2018-01-27] MEDS: FOLIC ACID 1 MG TAB PO SCH (10:49)
[2018-01-27] MEDS: SPIRONOLACTONE 25 MG TAB PO SCH (10:49)
[2018-01-27] MEDS: METOPROLOL TARTRATE 25 MG TAB PO SCH ×4 (12:38→20:36)
--- NOTE | 2018-01-27 14:06 | P.CRDCN ---
History of Present Illness Consult date: 01/27/18 Requesting physician: Zhao Tineo Consult reason: shortness of breath Chief complaint: Shortness of breath History of present illness: This is a pleasant 87-year-old female with known history of coronary artery disease and prior bypass surgery, prior PCI's, ischemic cardiomyopathy with prior AICD, paroxysmal atrial fibrillation on Coumadin for anticoagulation , hypertension, hyperlipidemia, COPD, who follows with Dr. Enrike Gilliland in the office, presents to the hospital with symptoms of progressively worsening shortness of breath. Echocardiogram with Doppler study was performed in November which revealed severe global hypokinesia with an ejection fraction of 20-25%. At that same time patient was in the hospital with a non-Q-wave myocardial infarction. Patient was just recently discharged from the hospital on the of this month, readmitted now with congestive cardiac failure. Chest x-ray shows worsening CHF exacerbation on the background of chronic emphysema changes. Small bilateral pleural effusions noted. EKG on admission showed atrial fibrillation with a controlled ventricular response, occasional PVCs. Blood pressure 105/56, heart rate in the 70s. White blood cell count 1.4, hemoglobin 11.3, platelet count 101. PTT 35.6 with an INR of 4.0. Sodium 132, potassium 4.1, BUN 12, creatinine 0.6. Mag level I.8. Troponin 0.015. BNP level 3530. Patient was initiated on IV Lasix in the emergency room and has diuresed well through the night last night. Weight is down significantly from admission. Past Medical History Past Medical History: Atrial Fibrillation, Coronary Artery Disease (CAD), Chest Pain / Angina, Hypertension Additional Past Medical History / Comment(s): [place] in 1991 with two stents placed. Last Myocardial Infarction Date:: 1991 History of Any Multi-Drug Resistant Organisms: None Reported Past Surgical History: AICD, Coronary Bypass/CABG, Pacemaker Additional Past Surgical History / Comment(s): CABG x3. Past Anesthesia/Blood Transfusion Reactions: No Reported Reaction Type of Cardiac Device: Permanent Pacemaker Device Placement Date:: 2012 Past Psychological History: No Psychological Hx Reported Smoking Status: Former smoker Past Alcohol Use History: None Reported Past Drug Use History: None Reported - Past Family History Father History Unknown: Yes Mother History Unknown: Yes Medications and Allergies Home Medications Medication Instructions Recorded Confirmed Type Atorvastatin [Lipitor] 20 mg PO HS 12/06/17 01/26/18 History Digoxin [Lanoxin] 125 mcg PO DAILY 12/06/17 01/26/18 History Latanoprost [Xalatan 0.005%] 1 drop BOTH EYES HS 12/06/17 01/26/18 History Spironolactone [Aldactone] 25 mg PO DAILY #30 tab 12/11/17 01/26/18 Rx Ferrous Sulfate [Iron (65 MG 325 mg PO W/LUNCH tab 12/17/17 01/26/18 Rx Elemental)] Metoprolol Tartrate [Lopressor] 25 mg PO BID tab 12/17/17 01/26/18 Rx Nitroglycerin Sl Tabs [Nitrostat] 0.4 mg SUBLINGUAL Q5M PRN tab 12/17/17 Rx Warfarin [Coumadin] 2 mg PO SUMOTUWETHSA 12/17/17 01/26/18 History Warfarin [Coumadin] 4 mg PO FR 12/17/17 01/26/18 History Cyanocobalamin [Vitamin B-12 1,000 mcg IM FR 01/17/18 01/26/18 History Injection] Folic Acid 1 mg PO DAILY 01/17/18 01/26/18 History Losartan [Cozaar] 25 mg PO DAILY 01/17/18 01/26/18 History Omeprazole 20 mg PO DAILY 01/17/18 01/26/18 History Promethazine [Phenergan] 12.5 mg PO Q6HR PRN 01/17/18 01/26/18 History Tamsulosin HCl [Flomax] 0.4 mg PO HS 01/18/18 01/26/18 History Allergies Allergy/AdvReac Type Severity Reaction Status Date / Time No Known Allergies Allergy Verified 01/26/18 13:26 Physical Exam Vitals: Vital Signs Temp Pulse Pulse Pulse Resp BP BP 01/27/18 11:03 78 18 105/55 01/27/18 10:00 104/55 01/27/18 08:00 79 18 82/45 01/27/18 04:00 96.6 F L 72 18 97/48 01/26/18 23:32 97.0 F L 71 16 93/53 01/26/18 20:00 97.3 F L 78 16 102/43 01/26/18 17:46 18 01/26/18 15:51 98.2 F 98 18 112/71 01/26/18 15:29 97 F L 84 16 88/51 01/26/18 14:27 99 18 92/51 01/26/18 13:43 76 16 01/26/18 13:30 90 18 100/55 01/26/18 12:27 98.2 F 65 20 104/55 Pulse Ox 01/27/18 11:03 97 01/27/18 10:00 01/27/18 08:00 95 01/27/18 04:00 95 01/26/18 23:32 96 01/26/18 20:00 97 01/26/18 17:46 01/26/18 15:51 97 01/26/18 15:29 100 01/26/18 14:27 98 01/26/18 13:43 01/26/18 13:30 97 01/26/18 12:27 95 Intake and Output 01/26/18 01/27/18 01/27/18 22:59 06:59 14:59 Intake Total 240 120 Output Total 2100 1200 Balance -1860 -1200 120 Intake: Oral 240 120 Output: Urine 2100 1200 Other: Voiding Method Indwelling Catheter Indwelling Catheter Indwelling Catheter Weight 55.5 kg 55.5 kg PHYSICAL EXAMINATION: GENERAL: HEENT: Head is atraumatic, normocephalic. Pupils equal, round. Sclera anicteric. Conjunctiva are clear. Mucous membranes of the mouth are moist. Neck is supple. There is no elevated jugular venous pressure.] bruit is heard. HEART EXAMINATION: Heart S1 and S2 irregularly irregular CHEST EXAMINATION: Lungs are clear to with diminished air entry to bilateral bases. No chest wall tenderness is noted on palpation or with deep breathing. ABDOMEN: Soft, nontender. Bowel sounds are heard. No organomegaly noted. EXTREMITIES: 2+ peripheral pulses with no evidence of peripheral edema and no calf tenderness noted. NEUROLOGIC patient is awake, alert and oriented -3. . Results 01/26/18 12:36 01/27/18 05:39 Cardiac Enzymes 01/26/18 01/26/18 Range/Units 12:36 12:36 AST 19 (17-59) U/L CK-MB (CK-2) 0.4 (0.0-2.4) ng/mL Troponin I 0.015 (0.000-0.034) ng/mL Coagulation 01/26/18 01/27/18 Range/Units 12:36 05:39 PT 24.0 H 35.6 H (9.0-12.0) sec APTT 31.3 H (22.0-30.0) sec CBC 01/26/18 Range/Units 12:36 WBC 1.4 L* (3.8-10.6) k/uL RBC 3.72 L (4.30-5.90) m/uL Hgb 11.3 L (13.0-17.5) gm/dL Hct 35.2 L (39.0-53.0) % Plt Count 101 L (150-450) k/uL Comprehensive Metabolic Panel 01/26/18 01/27/18 Range/Units 12:36 05:39 Sodium 131 L 132 L (137-145) mmol/L Potassium 4.4 4.1 (3.5-5.1) mmol/L Chloride 97 L 96 L (98-107) mmol/L Carbon Dioxide 25 29 (22-30) mmol/L BUN 11 12 (9-20) mg/dL Creatinine 0.60 L 0.67 (0.66-1.25) mg/dL Glucose 103 H 78 (74-99) mg/dL Calcium 7.9 L 8.0 L (8.4-10.2) mg/dL AST 19 (17-59) U/L ALT 29 (21-72) U/L Alkaline Phosphatase 118 (38-126) U/L Total Protein 5.5 L (6.3-8.2) g/dL Albumin 2.7 L (3.5-5.0) g/dL Current Medications Generic Name Dose Route Start Last Admin Trade Name Freq PRN Reason Stop Dose Admin Acetaminophen 650 mg 01/26/18 14:49 Tylenol Tab PO Q6HR PRN Mild Pain or Fever > 100.5 Atorvastatin Calcium 20 mg 01/26/18 21:00 01/26/18 21:19 Lipitor PO 20 mg HS MARCIA Administration Cyanocobalamin 1,000 mcg 01/29/18 12:00 Vitamin B-12 IM FR MARCIA Digoxin 125 mcg 01/27/18 09:00 01/27/18 10:49 Lanoxin PO 125 mcg DAILY MARCIA Administration Ferrous Sulfate 325 mg 01/27/18 12:30 Feosol PO W/LUNCH MARCIA Folic Acid 1 mg 01/27/18 09:00 01/27/18 10:49 Folic Acid PO 1 mg DAILY [facility] Administration Furosemide 40 mg 01/26/18 21:00 01/27/18 10:49 Lasix IV 40 mg Q12HR [facility] Administration Latanoprost 1 drops 01/26/18 21:00 01/26/18 23:12 Xalatan 0.005% BOTH EYES 1 drops HS [facility] Administration Losartan Potassium 25 mg 01/27/18 09:00 01/27/18 10:49 Cozaar PO 25 mg DAILY [facility] Administration Metoprolol Tartrate 25 mg 01/27/18 16:00 Lopressor PO TID MARCIA Naloxone HCl 0.2 mg 01/26/18 14:49 Narcan IV Q2M PRN Opioid Reversal Nitroglycerin 0.4 mg 01/26/18 17:10 Nitrostat SUBLINGUAL Q5M PRN Chest Pain Pantoprazole Sodium 40 mg 01/27/18 07:30 01/27/18 06:08 Protonix PO 40 mg [id number] [facility] Administration Promethazine HCl 12.5 mg 01/26/18 17:10 Phenergan PO Q6HR PRN Nausea Spironolactone 25 mg 01/27/18 09:00 01/27/18 10:49 Aldactone PO 25 mg DAILY [facility] Administration Tamsulosin HCl 0.4 mg 01/26/18 21:00 01/26/18 21:28 Flomax PO 0.4 mg HS [facility] Administration Warfarin Sodium 2 mg 01/26/18 18:00 01/26/18 18:46 Coumadin PO 2 mg SUMOTUWETHSA [facility] Administration Warfarin Sodium 4 mg 01/29/18 18:00 Coumadin PO FR [facility] Intake and Output 01/26/18 01/27/18 01/27/18 22:59 06:59 14:59 Intake Total 240 120 Output Total 2100 1200 Balance -1860 -1200 120 Intake: Oral 240 120 Output: Urine 2100 1200 Other: Voiding Method Indwelling Catheter Indwelling Catheter Indwelling Catheter Weight 55.5 kg 55.5 kg Patient Weight 01/28/18 06:59 Weight 55.5 kg 01/26/18 12:36 01/27/18 05:39 EKG Interpretations (text) EKG shows atrial fibrillation with occasional PVCs, controlled ventricular response Assessment and Plan Plan: Assessment and plan #1 systolic congestive heart failure acute on chronic #2 known history of coronary artery disease with prior bypass surgery and PCI, most recently in November patient was in the hospital with a non-Q-wave ID and subsequent GI bleeding #3 ischemic cardiomyopathy with prior AICD implant. AICD was interrogated in November and is functioning appropriately. #4 hypertension #5 hyperlipidemia #6 pancytopenia #7 chronic persistent atrial fibrillation Plan From cardiology's perspective, we will continue current dose of IV Lasix. We will hold Coumadin today as he INR is 4.0. Continue to monitor intake and output along with daily weights and daily lytes BUN and creatinine. Patient did have an echocardiogram with Doppler study performed in November which revealed an ejection fraction of 20-25%. We will increase the dose of metoprolol to 3 times a day. Further recommendations to follow. DNP note has been reviewed, I agree with a documented findings and plan of care. Patient was seen and examined.
--- NOTE | 2018-01-27 17:10 | P.PN ---
Subjective Patient was admitted for recurrent start failure chronic systolic dysfunction with acute exacerbation patient on 40 IV twice a day of Lasix patient is clinically doing well today although blood pressures on the low normal side. Respiratory status significant improved patient is off oxygen today Constitutional: Denied any fatigue denied any fever. Cardio vascular: denied any chest pain, palpitations Gastrointestinal denied any nausea vomiting Pulmonary: Denied any shortness of breath cough Neurologic denied any new focal deficits Objective - Vital Signs Vital signs: Vital Signs Temp 96.6 F L 01/27/18 04:00 Pulse 91 01/27/18 15:18 Resp 18 01/27/18 15:18 BP 81/44 01/27/18 15:18 Pulse Ox 96 01/27/18 15:18 Intake & Output 01/26/18 01/27/18 01/27/18 18:59 06:59 18:59 Intake Total 240 360 Output Total 800 2500 500 Balance -560 -2500 -140 Weight 63.503 kg 55.5 kg 55.5 kg Intake: Oral 240 360 Output: Urine 800 2500 500 Other: Voiding Method Indwelling Catheter Indwelling Catheter Indwelling Catheter - Exam PHYSICAL EXAMINATION: GENERAL: The patient is alert and oriented x3, not in any acute distress. Thin built. HEENT: Pupils are round and equally reacting to light. EOMI. No scleral icterus. No conjunctival pallor. Normocephalic, atraumatic. No pharyngeal erythema. No thyromegaly. CARDIOVASCULAR: S1 and S2 present. No murmurs, rubs, or gallops. Minimally elevated JVD does have S3 PULMONARY: Chest is clear to auscultation, no wheezing or crackles. ABDOMEN: Soft, nontender, nondistended, normoactive bowel sounds. No palpable organomegaly. MUSCULOSKELETAL: No joint swelling or deformity. EXTREMITIES: No cyanosis, clubbing, or pedal edema. NEUROLOGICAL: Gross neurological examination did not reveal any focal deficits. SKIN: No rashes. - Labs CBC & Chem 7: 01/26/18 12:36 01/27/18 05:39 Labs: Abnormal Lab Results - Last 24 Hours (Table) 01/27/18 01/27/18 Range/Units 05:39 05:39 PT 35.6 H (9.0-12.0) sec INR 4.0 H (<1.2) Sodium 132 L (137-145) mmol/L Chloride 96 L (98-107) mmol/L Calcium 8.0 L (8.4-10.2) mg/dL Microbiology - Last 24 Hours (Table) 01/26/18 12:36 Blood Culture - Preliminary Blood No Growth after 24 hours Assessment and Plan Plan: -Acute hypoxic respiratory failure: Secondary to congestive heart failure chronic systolic dysfunction with acute exacerbation patient patient to moderate 40 IV twice a day of Lasix. -Chronic congestive heart failure with acute exacerbation patient has an AICD in place. Losartan will be continued aldactone will be continued. Atrial fibrillation: Rate controlled, patient's levels are elevated digoxin will be discontinued, patient's INR is 4 today hold off on Coumadin -Gastroesophageal reflux disease -Chronic Escudero catheter secondary to benign prostatic hypertrophy on tamsulosin supposed to follow-up with urology as an outpatient on Thursday hopefully he can be discharged by them -Generalized deconditioning PT and OT consultation -Hyperlipidemia continue with Lipitor. -Coronary artery disease medical management was recommended during his previous hospitalization when he was admitted for non-ST elevation myocardial infarction
[2018-01-27] MEDS: FERROUS SULFATE 325 MG TAB PO SCH (17:56)
[2018-01-27] MEDS: ATORVASTATIN 20 MG TAB PO SCH (20:35)
[2018-01-27] MEDS: LATANOPROST 0.005% OPHTH DROPS 2.5 ML BTL BOTH EYES SCH (20:36)
[2018-01-27] MEDS: TAMSULOSIN 0.4 MG CAP.ER.24H PO SCH (20:36)
[2018-01-28] MEDS: PANTOPRAZOLE 40 MG TABLET PO SCH (06:46)
[2018-01-28 07:15] LABS: Anion Gap 8 mmol/L; Blood Urea Nitrogen 17 mg/dL (9-20); Calcium 8.2 mg/dL (8.4-10.2); Carbon Dioxide 31 mmol/L (22-30); Chloride 94 mmol/L (98-107); Glucose 89 mg/dL (74-99); Potassium 3.7 mmol/L (3.5-5.1); Sodium 133 mmol/L (137-145)
[2018-01-28 07:20] LABS: INR 3.5 (<1.2); Prothrombin Time 31.1 sec (9.0-12.0)
[2018-01-28] MEDS: FUROSEMIDE 10 MG/ML 4 ML VIAL IV SCH ×2 (08:31→20:30)
--- NOTE | 2018-01-28 10:17 | FL ---
EXAMINATION TYPE: FL barium swallow w video DATE OF EXAM: 01/28/2018 COMPARISON: NONE HISTORY: Abnormal bedside evaluation TECHNIQUE: Fluoroscopy. FINDINGS: Fluoroscopic guidance was provided for the procedure performed in conjunction with the [facility] pathology department. Please see complete report forthcoming from the Speech Pathology departmen t. Various consistencies from thin liquid to solids were administered. Fluoroscopy time 3 minutes 5 seconds Number of images: 0. There is a large collection of retention within the vallecula extending into the piriform sinuses. While clearing the vallecula of retained debris within liquids there was gross aspiration with sponta neous coughing. No aspiration occurred with thin liquids. Note was made of transient penetration with honey thick consistency. IMPRESSION: 1. Aspiration of retained products from the vallecula with thin liquids. 2. Swallowing improved with chin tuck method and diminished debris within the vallecula. 3. Transient penetration with honey thick consistency
[2018-01-28] MEDS: LOSARTAN 25 MG TAB PO SCH (11:05)
[2018-01-28] MEDS: SPIRONOLACTONE 25 MG TAB PO SCH (11:05)
[2018-01-28] MEDS: FOLIC ACID 1 MG TAB PO SCH (11:05)
[2018-01-28] MEDS: METOPROLOL TARTRATE 25 MG TAB PO SCH ×3 (11:05→23:25)
[2018-01-28 11:57] LABS: Anisocytosis Slight; HCT 32.2 % (39.0-53.0); HGB 10.3 gm/dL (13.0-17.5); Hypochromasia Slight; MCH 30.4 pg (25.0-35.0); MCHC 31.8 g/dL (31.0-37.0); MCV 95.6 fL (80.0-100.0); Macrocytosis Slight; Mean Platelet Volume 11.7; Platelet Count 108 k/uL (150-450); RBC 3.37 m/uL (4.30-5.90); RDW 18.6 % (11.5-15.5)
[2018-01-28 12:20] LABS: Lymphocytes # (M) 0.43 k/uL (1.0-4.8); Monocytes # (M) 0.13 k/uL (0-1.0); Myelocytes # (M) 0.01 k/uL (0); Myelocytes % 1 %; Neutrophils # (M) 0.43 k/uL (1.3-7.7); Neutrophils % (M) 43 %; Nucleated Red Blood Cells 0 /100 WBC (0-0); Total Cells Counted 100
[2018-01-28 12:21] LABS: Poikilocytosis (M) Present
[2018-01-28] MEDS: FERROUS SULFATE 325 MG TAB PO SCH (13:15)
--- NOTE | 2018-01-28 13:45 | P.PN ---
Subjective Patient was admitted for recurrent start failure chronic systolic dysfunction with acute exacerbation patient on 40 IV twice a day of Lasix patient is clinically doing well today although blood pressures on the low normal side. Respiratory status significant improved . 01/28/2018 Patient was pretty status did improve but the patient failed follow evaluation and the speech therapy is recommending a thick liquid. Patient's overall prognosis is externally poor considering his extremity poor ejection fraction severe coronary disease multiple hospitalizations. I did discuss with the patient regarding his overall goals of care and hospice and comfort care, patient did understand some of it but unsure of his decision. We'll discuss with the family members and daughter regarding his oral goals of care. The other option is PEG tube placement which will be a futile care. Constitutional: Denied any fatigue denied any fever. Cardio vascular: denied any chest pain, palpitations Gastrointestinal denied any nausea vomiting Pulmonary: Denied any shortness of breath cough Neurologic denied any new focal deficits Objective - Vital Signs Vital signs: Vital Signs Temp 97 F L 01/28/18 08:00 Pulse 60 01/28/18 12:00 Resp 16 01/28/18 12:00 BP 110/44 01/28/18 12:00 Pulse Ox 93 L 01/28/18 12:00 Intake & Output 01/27/18 01/28/18 01/28/18 18:59 06:59 18:59 Intake Total 360 150 0 Output Total 500 600 Balance -140 -450 0 Weight 55.5 kg 55 kg Intake: Oral 360 150 0 Output: Urine 500 600 Other: Voiding Method Indwelling Catheter Indwelling Catheter Indwelling Catheter # Bowel Movements 1 - Exam PHYSICAL EXAMINATION: GENERAL: The patient is alert and oriented x3, not in any acute distress. Thin built. HEENT: Pupils are round and equally reacting to light. EOMI. No scleral icterus. No conjunctival pallor. Normocephalic, atraumatic. No pharyngeal erythema. No thyromegaly. CARDIOVASCULAR: S1 and S2 present. No murmurs, rubs, or gallops. Minimally elevated JVD does have S3 PULMONARY: Chest is clear to auscultation, no wheezing or crackles. ABDOMEN: Soft, nontender, nondistended, normoactive bowel sounds. No palpable organomegaly. MUSCULOSKELETAL: No joint swelling or deformity. EXTREMITIES: No cyanosis, clubbing, or pedal edema. NEUROLOGICAL: Gross neurological examination did not reveal any focal deficits. SKIN: No rashes. - Labs CBC & Chem 7: 01/28/18 06:22 01/28/18 06:22 Labs: Abnormal Lab Results - Last 24 Hours (Table) 01/28/18 01/28/18 01/28/18 Range/Units 06:22 06:22 06:22 WBC 1.0 L* (3.8-10.6) k/uL RBC 3.37 L (4.30-5.90) m/uL Hgb 10.3 L (13.0-17.5) gm/dL Hct 32.2 L (39.0-53.0) % RDW 18.6 H (11.5-15.5) % Plt Count 108 L (150-450) k/uL Neutrophils # (Manual) 0.43 L (1.3-7.7) k/uL Lymphocytes # (Manual) 0.43 L (1.0-4.8) k/uL Myelocytes # (Manual) 0.01 H (0) k/uL PT 31.1 H (9.0-12.0) sec INR 3.5 H (<1.2) Sodium 133 L (137-145) mmol/L Chloride 94 L (98-107) mmol/L Carbon Dioxide 31 H (22-30) mmol/L Calcium 8.2 L (8.4-10.2) mg/dL Microbiology - Last 24 Hours (Table) 01/26/18 12:36 Blood Culture - Preliminary Blood No Growth after 24 hours Assessment and Plan Plan: -Acute hypoxic respiratory failure: Secondary to congestive heart failure chronic systolic dysfunction with acute exacerbation patient patient to moderate 40 IV twice a day of Lasix. -Chronic congestive heart failure with acute exacerbation patient has an AICD in place. Losartan will be continued aldactone will be continued. Atrial fibrillation: Rate controlled, patient's levels are elevated digoxin will be discontinued, patient's INR is 3 today hold off on Coumadin -Gastroesophageal reflux disease -Chronic Escudero catheter secondary to benign prostatic hypertrophy on tamsulosin supposed to follow-up with urology as an outpatient on Thursday hopefully he can be discharged by them -Generalized deconditioning -Hyperlipidemia continue with Lipitor. -Coronary artery disease medical management was recommended during his previous hospitalization when he was admitted for non-ST elevation myocardial infarction -Dysphagia due to generalized weakness advanced age.
--- NOTE | 2018-01-28 15:17 | P.PN ---
Subjective Progress Note Date: 01/28/18 This is a pleasant 61-year-old male who follows regularly with Dr. Salguero in the office. She has a known history of hypertension, family history of premature coronary artery, who had a myocardial infarction 60s, she is nondiabetic, nonsmoker, no hyperlipidemia. Patient states she recently had a stress test in the office with Dr. Salguero in August which was reported to be normal. Patient also states that over 10 years ago she had a heart catheterization which was reported to be normal. She presents to the hospital on this occasion with symptoms of chest pressure and heaviness. According to the patient, she was quite angry and frustrated yesterday had to walk out to the road have a truck and boat move out of blocking a driveway, on return to the office, patient then received a phone call that her [id number] had just . Just prior to walking out to the road, patient states that she noticed a pressure and heaviness sensation in her chest, this sensation continue to worsen and became quite severe, she was nauseated and diaphoretic. She called her daughter who stopped in the EMS was then called and patient was to the emergency room for further evaluation. Her blood pressure on arrival here 152/78, heart rate 90, 100% on room air. Temperature 98.0. White blood cell count normal, hemoglobin 16.1, platelet count 259. Sodium 141, potassium 4.4, BUN 15, creatinine 0.9. Troponins 0.766 and 2.3. Magnesium level 2.0. EKG on arrival here showed normal sinus rhythm with PVCs, no acute changes noted. Chest x-ray shows cardiomegaly. Subsequent EKG shows normal sinus rhythm with PVCs, no acute changes noted. At the time of my examination this morning, patient continues to have pressure in her chest, we will apply oxygen and repeat an EKG this morning. Stat echocardiogram with Doppler study will be obtained. Patient is currently on heparin drip along with aspirin, Lipitor 80, lisinopril 10 mg daily, Toprol 150 mg daily. 01/28/2018 Patient was seen and examined this morning, the decision has been made to proceed with hospice. At pressure 110/40 with a heart rate in the 60s, 93% on 2 L of oxygen. Blood cell count 1.0, hemoglobin 10.3, platelet count 108. Pro time 31.1 with an INR of 3.5. Sodium 133, potassium 3.7, BUN 17, creatinine 0.7. Objective - Vital Signs Vital signs: Vital Signs Temp 97 F L 01/28/18 08:00 Pulse 60 01/28/18 12:00 Resp 16 01/28/18 12:00 BP 110/44 01/28/18 12:00 Pulse Ox 93 L 01/28/18 12:00 Intake & Output 01/27/18 01/28/18 01/28/18 18:59 06:59 18:59 Intake Total 360 150 0 Output Total 500 600 Balance -140 -450 0 Weight 55.5 kg 55 kg Intake: Oral 360 150 0 Output: Urine 500 600 Other: Voiding Method Indwelling Catheter Indwelling Catheter Indwelling Catheter # Bowel Movements 1 - Exam GENERAL: HEENT: Head is atraumatic, normocephalic. Pupils equal, round. Sclera anicteric. Conjunctiva are clear. Mucous membranes of the mouth are moist. Neck is supple. There is no elevated jugular venous pressure.] bruit is heard. HEART EXAMINATION: Heart S1 and S2 irregularly irregular CHEST EXAMINATION: Lungs are clear to with diminished air entry to bilateral bases. No chest wall tenderness is noted on palpation or with deep breathing. ABDOMEN: Soft, nontender. Bowel sounds are heard. No organomegaly noted. EXTREMITIES: 2+ peripheral pulses with no evidence of peripheral edema and no calf tenderness noted. NEUROLOGIC patient is awake, . - Labs CBC & Chem 7: 01/28/18 06:22 01/28/18 06:22 Labs: Abnormal Lab Results - Last 24 Hours (Table) 01/28/18 01/28/18 01/28/18 Range/Units 06:22 06:22 06:22 WBC 1.0 L* (3.8-10.6) k/uL RBC 3.37 L (4.30-5.90) m/uL Hgb 10.3 L (13.0-17.5) gm/dL Hct 32.2 L (39.0-53.0) % RDW 18.6 H (11.5-15.5) % Plt Count 108 L (150-450) k/uL Neutrophils # (Manual) 0.43 L (1.3-7.7) k/uL Lymphocytes # (Manual) 0.43 L (1.0-4.8) k/uL Myelocytes # (Manual) 0.01 H (0) k/uL PT 31.1 H (9.0-12.0) sec INR 3.5 H (<1.2) Sodium 133 L (137-145) mmol/L Chloride 94 L (98-107) mmol/L Carbon Dioxide 31 H (22-30) mmol/L Calcium 8.2 L (8.4-10.2) mg/dL Microbiology - Last 24 Hours (Table) 01/26/18 12:36 Blood Culture - Preliminary Blood No Growth after 48 hours Assessment and Plan Plan: Assessment and plan #1 systolic congestive heart failure acute on chronic #2 known history of coronary artery disease with prior bypass surgery and PCI, most recently in November patient was in the hospital with a non-Q-wave WI and subsequent GI bleeding #3 ischemic cardiomyopathy with prior AICD implant. AICD was interrogated in November and is functioning appropriately. #4 hypertension #5 hyperlipidemia #6 pancytopenia #7 chronic persistent atrial fibrillation Plan From cardiology's perspective, we'll follow this patient with you now on an as- needed basis only, decision has been made regarding hospice. He will be transferred to the medical surgical unit. DNP note has been reviewed, I agree with a documented findings and plan of care. Patient was seen and examined.
[2018-01-28] MEDS: ATORVASTATIN 20 MG TAB PO SCH (20:30)
[2018-01-28] MEDS: TAMSULOSIN 0.4 MG CAP.ER.24H PO SCH (20:31)
[2018-01-28] MEDS: LATANOPROST 0.005% OPHTH DROPS 2.5 ML BTL BOTH EYES SCH (21:55)
[2018-01-29 05:58] LABS: Glucose,Whole Blood 85 mg/dL (75-99)
[2018-01-29 07:06] LABS: Anisocytosis Slight; HGB 9.9 gm/dL (13.0-17.5); Hypochromasia Slight; MCH 29.9 pg (25.0-35.0); MCHC 32.1 g/dL (31.0-37.0); MCV 93.3 fL (80.0-100.0); Mean Platelet Volume 11.7; Poikilocytosis Slight; RBC 3.32 m/uL (4.30-5.90); RDW 18.7 % (11.5-15.5)
[2018-01-29 07:19] LABS: Anion Gap 8 mmol/L; Blood Urea Nitrogen 18 mg/dL (9-20); Calcium 8.2 mg/dL (8.4-10.2); Carbon Dioxide 30 mmol/L (22-30); Chloride 93 mmol/L (98-107); Glucose 78 mg/dL (74-99); Potassium 3.6 mmol/L (3.5-5.1); Sodium 131 mmol/L (137-145); WBC 0.9 k/uL (3.8-10.6)
[2018-01-29 07:34] LABS: INR 2.4 (<1.2); Prothrombin Time 21.6 sec (9.0-12.0)
[2018-01-29 07:53] LABS: Platelet Count 87 k/uL (150-450)
[2018-01-29] MEDS ORDERED: FUROSEMIDE 40 MG TAB PO SCH (09:00)
[2018-01-29] MEDS: PANTOPRAZOLE 40 MG TABLET PO SCH (09:13)
[2018-01-29] MEDS: SPIRONOLACTONE 25 MG TAB PO SCH (09:13)
[2018-01-29] MEDS: FOLIC ACID 1 MG TAB PO SCH (09:13)
[2018-01-29] MEDS: LOSARTAN 25 MG TAB PO SCH (09:14)
[2018-01-29] MEDS: METOPROLOL TARTRATE 25 MG TAB PO SCH (09:14)
[2018-01-29] MEDS ORDERED: DIGOXIN 250 MCG/ML 2 ML AMP IVP ONE (10:04)
[2018-01-29] MEDS ORDERED: CYANOCOBALAMIN 1,000 MCG/ML 1 ML VIAL IM SCH (12:00)
[2018-01-29 13:41] VITALS: BMI 16.7
[2018-01-29] MEDS: FERROUS SULFATE 325 MG TAB PO SCH (13:47)
[2018-01-29 14:42] VITALS: BP 90/52; RESP 16; TEMP 97
--- NOTE | 2018-01-29 15:42 | PN ---
PROGRESS NOTE Mr. Bernstein is an 87-year-old gentleman with ischemic cardiomyopathy and ICD. He is having some hoarseness of voice, unable to swallow. I have requested ENT consultation for this patient. Vital signs are stable. He is unable to eat . S1-S2 heard normally. Lungs reveal diminished air entry. Abdomen and lower extremity exam is unchanged. Plan is to continue current medical regimen. Prognosis remains poor. We will seek input from ENT and see how he does. MMODL / IJN: [id number] /
--- NOTE | 2018-01-29 15:51 | P.PN ---
Progress Note - Text Progress Note Date: 01/29/18 Consult was placed For pancytopenia, for which the patient has been seen previously. Based on the workup, this appears to be multifactorial. It is suspected that the patient has an underlying myelodysplasia. In addition he also has iron deficiency and B12 deficiency. During his admission in 12/16 he received IV iron, and was started on IM B12. His counts do tend to decline with any additional stress. During this admission, hemoglobin and platelets are actually improved compared to 12/16. White blood count has declined again likely due to current acute illness. The patient has decided to sign on for hospice. Therefore formal consult is not required. Case discussed with the hospice nurse. Patient will continue B12 as an outpatient. I will give him a couple of doses of Neupogen while here to improve his white count.
[2018-01-29 15:52] VITALS: PULSE 56
[2018-01-29] MEDS ORDERED: FILGRASTIM-SNDZ 480 MCG/0.8 ML SYRINGE SQ SCH (16:00)
--- NOTE | 2018-01-29 16:02 | P.PN ---
Subjective Patient was admitted for recurrent start failure chronic systolic dysfunction with acute exacerbation patient on 40 IV twice a day of Lasix patient is clinically doing well today although blood pressures on the low normal side. Respiratory status significant improved . 01/28/2018 Patient was pretty status did improve but the patient failed follow evaluation and the speech therapy is recommending a thick liquid. Patient's overall prognosis is externally poor considering his extremity poor ejection fraction severe coronary disease multiple hospitalizations. I did discuss with the patient regarding his overall goals of care and hospice and comfort care, patient did understand some of it but unsure of his decision. We'll discuss with the family members and daughter regarding his oral goals of care. The other option is PEG tube placement which will be a futile care. 01/29/2018 I had extensive discussion with the patient and family members today again after which a of decision of hospice was made. Patient probably will be discharged as hospice today or tomorrow depending on hospice services evaluation and arrangements at home for home hospice. Family prefers home hospice. Objective - Vital Signs Vital signs: Vital Signs Temp 97 F L 01/29/18 12:00 Pulse 56 L 01/29/18 15:50 Resp 16 01/29/18 15:50 BP 90/52 01/29/18 12:00 Pulse Ox 93 L 01/29/18 12:00 Intake & Output 01/28/18 01/29/18 01/29/18 18:59 06:59 18:59 Intake Total 240 200 Output Total 475 550 Balance -235 -350 Weight 54.5 kg 54.5 kg Intake: Oral 240 200 Output: Urine 475 550 Other: Voiding Method Indwelling Catheter Indwelling Catheter Indwelling Catheter # Voids 1 # Bowel Movements 0 - Exam PHYSICAL EXAMINATION: GENERAL: The patient is alert and oriented x3, not in any acute distress. Thin built. HEENT: Pupils are round and equally reacting to light. EOMI. No scleral icterus. No conjunctival pallor. Normocephalic, atraumatic. No pharyngeal erythema. No thyromegaly. CARDIOVASCULAR: S1 and S2 present. No murmurs, rubs, or gallops. Minimally elevated JVD does have S3 PULMONARY: Chest is clear to auscultation, no wheezing or crackles. ABDOMEN: Soft, nontender, nondistended, normoactive bowel sounds. No palpable organomegaly. MUSCULOSKELETAL: No joint swelling or deformity. EXTREMITIES: No cyanosis, clubbing, or pedal edema. NEUROLOGICAL: Gross neurological examination did not reveal any focal deficits. SKIN: No rashes. - Labs CBC & Chem 7: 01/29/18 06:41 01/29/18 06:41 Labs: Abnormal Lab Results - Last 24 Hours (Table) 01/29/18 01/29/18 01/29/18 Range/Units 06:41 06:41 06:41 WBC 0.9 L* (3.8-10.6) k/uL RBC 3.32 L (4.30-5.90) m/uL Hgb 9.9 L (13.0-17.5) gm/dL Hct 31.0 L (39.0-53.0) % RDW 18.7 H (11.5-15.5) % Plt Count 87 L (150-450) k/uL PT 21.6 H (9.0-12.0) sec INR 2.4 H (<1.2) Sodium 131 L (137-145) mmol/L Chloride 93 L (98-107) mmol/L Calcium 8.2 L (8.4-10.2) mg/dL Microbiology - Last 24 Hours (Table) 01/26/18 12:36 Blood Culture - Preliminary Blood No Growth after 72 hours Assessment and Plan Plan: -Acute hypoxic respiratory failure: Secondary to congestive heart failure chronic systolic dysfunction with acute exacerbation patient was switched to oral Lasix. -Pancytopenia: Secondary to B12 deficiency and mild dysplastic syndrome, most probably no further intervention as patient is going to be hospice -Chronic congestive heart failure with acute exacerbation patient has an AICD in place. Losartan will be continued aldactone will be continued. Atrial fibrillation: Rate controlled, patient's levels are elevated digoxin will be discontinued, patient's INR is 3 today hold off on Coumadin, may not require anticoagulation down the line as patient mostly will be home hospice -Gastroesophageal reflux disease -Chronic Escudero catheter secondary to benign prostatic hypertrophy on tamsulosin -Generalized deconditioning -Hyperlipidemia continue with Lipitor. -Coronary artery disease medical management was recommended during his previous hospitalization when he was admitted for non-ST elevation myocardial infarction -Dysphagia due to generalized weakness advanced age.
--- NOTE | 2018-01-29 17:17 | P.DS ---
Providers Date of admission: 01/26/18 14:49 Attending physician: Zhao Tineo Consults: 01/26/18 14:54 Consult Physician Routine Consulting Provider: Zaina Gilliland Consult Reason/Comments: CHF Do you want consulting provider notified?: Yes 01/29/18 08:42 Consult Physician Routine Consulting Provider: Lalo Fay Consult Reason/Comments: Myelodysplastic syndrome per Dr. Gilliland Do you want consulting provider notified?: Yes 01/29/18 10:05 Consult Physician Routine Consulting Provider: Julio Manley Consult Reason/Comments: Hoarseness, difficulty swallowing Do you want consulting provider notified?: Yes Primary care physician: Britney Clark Hospital Course: Patient was discharged to hospice. Please refer to medication a progress note for further details Patient Condition at Discharge: Serious Plan - Discharge Summary Discharge Rx Participant: No New Discharge Prescriptions: No Action Latanoprost [Xalatan 0.005%] 1 drop BOTH EYES HS Atorvastatin [Lipitor] 20 mg PO HS Digoxin [Lanoxin] 125 mcg PO DAILY Spironolactone [Aldactone] 25 mg PO DAILY #30 tab Ferrous Sulfate [Iron (65 MG Elemental)] 325 mg PO W/LUNCH tab Metoprolol Tartrate [Lopressor] 25 mg PO BID tab Nitroglycerin Sl Tabs [Nitrostat] 0.4 mg SUBLINGUAL Q5M PRN tab PRN Reason: Chest Pain Warfarin [Coumadin] 2 mg PO SUMOTUWETHSA Warfarin [Coumadin] 4 mg PO FR Promethazine [Phenergan] 12.5 mg PO Q6HR PRN PRN Reason: Nausea Losartan [Cozaar] 25 mg PO DAILY Omeprazole 20 mg PO DAILY Folic Acid 1 mg PO DAILY Cyanocobalamin [Vitamin B-12 Injection] 1,000 mcg IM FR Tamsulosin HCl [Flomax] 0.4 mg PO HS Discharge Medication List Atorvastatin [Lipitor] 20 mg PO HS 12/06/17 [History] Digoxin [Lanoxin] 125 mcg PO DAILY 12/06/17 [History] Latanoprost [Xalatan 0.005%] 1 drop BOTH EYES HS 12/06/17 [History] Spironolactone [Aldactone] 25 mg PO DAILY #30 tab 12/11/17 [Rx] Ferrous Sulfate [Iron (65 MG Elemental)] 325 mg PO W/LUNCH tab 12/17/17 [Rx] Metoprolol Tartrate [Lopressor] 25 mg PO BID tab 12/17/17 [Rx] Nitroglycerin Sl Tabs [Nitrostat] 0.4 mg SUBLINGUAL Q5M PRN tab 12/17/17 [Rx] Warfarin [Coumadin] 2 mg PO SUMOTUWETHSA 12/17/17 [History] Warfarin [Coumadin] 4 mg PO FR 12/17/17 [History] Cyanocobalamin [Vitamin B-12 Injection] 1,000 mcg IM FR 01/17/18 [History] Folic Acid 1 mg PO DAILY 01/17/18 [History] Losartan [Cozaar] 25 mg PO DAILY 01/17/18 [History] Omeprazole 20 mg PO DAILY 01/17/18 [History] Promethazine [Phenergan] 12.5 mg PO Q6HR PRN 01/17/18 [History] Tamsulosin HCl [Flomax] 0.4 mg PO HS 01/18/18 [History] Follow up Appointment(s)/Referral(s): Zaina Gilliland MD [STAFF PHYSICIAN] - 02/02/18 4:30 pm Britney Clark DO [Primary Care Provider] - 1-2 days Patient Instructions/Handouts: Heart Failure (DC), Heart Healthy Diet (DC) Discharge Disposition: DISCH TO [facility]
[2018-01-29] MEDS ORDERED: WARFARIN 2 MG TAB PO SCH (18:00)
[2018-01-29] MEDS ORDERED: WARFARIN 1 MG TAB PO SCH (18:00)
== END 2018-01-29 15:51 | disposition hospice, inpatient (51) | DRG 291 ==
LOC: EC 12:17 → OBSVTOIN 14:49 → 6SEL 14:49
PROVIDERS: ADMIT Hospitalist; ATTEND Hospitalist
DX: I11.0 Hypertensive heart disease with heart failure (principal); J96.01 Acute respiratory failure with hypoxia; D61.818 Other pancytopenia; I50.23 Acute on chronic systolic (congestive) heart failure; I25.10 Atherosclerotic heart disease of native coronary artery without angina pectoris; Z95.1 Presence of aortocoronary bypass graft; I48.2 Chronic atrial fibrillation; I25.5 Ischemic cardiomyopathy; K21.9 Gastro-esophageal reflux disease without esophagitis; N40.0 Benign prostatic hyperplasia without lower urinary tract symptoms; E78.5 Hyperlipidemia, unspecified; D46.9 Myelodysplastic syndrome, unspecified; E53.8 Deficiency of other specified B group vitamins; E61.1 Iron deficiency; I49.3 Ventricular premature depolarization; J43.9 Emphysema, unspecified; R13.10 Dysphagia, unspecified; R49.0 Dysphonia; Z87.891 Personal history of nicotine dependence; Z79.01 Long term (current) use of anticoagulants; Z95.810 Presence of automatic (implantable) cardiac defibrillator; I25.2 Old myocardial infarction; Z82.49 Family history of ischemic heart disease and other diseases of the circulatory system; Z79.899 Other long term (current) drug therapy; Z95.5 Presence of coronary angioplasty implant and graft; Z87.440 Personal history of urinary (tract) infections
CPT/HCPCS: 36415; 71046; 74230; 80048; 80053; 80162; 82550; 82553; 83735; 83880; 84484; 85025; 85610; 85730; 87040; 93005; 94640; 94760; 96374; 99285

== ENCOUNTER 2018-01-29 13:16 | Inpatient (IN) | payer MEDICAID ==
[2018-01-29] MEDS ORDERED: ACETAMINOPHEN TAB 325 MG TAB PO PRN (15:54)
[2018-01-29] MEDS ORDERED: WARFARIN 1 MG TAB PO SCH (18:00)
[2018-01-29] MEDS ORDERED: WARFARIN 2 MG TAB PO SCH (18:00)
[2018-01-29] MEDS ORDERED: TAMSULOSIN 0.4 MG CAP.ER.24H PO SCH (18:30)
[2018-01-29] MEDS: METOPROLOL TARTRATE 25 MG TAB PO SCH ×2 (18:43→21:30)
[2018-01-29] MEDS ORDERED: LATANOPROST 0.005% OPHTH DROPS 2.5 ML BTL BOTH EYES SCH (21:00)
[2018-01-30 04:36] VITALS: TEMP 97
[2018-01-30] MEDS ORDERED: PANTOPRAZOLE 40 MG TABLET PO SCH (07:30)
[2018-01-30] MEDS: METOPROLOL TARTRATE 25 MG TAB PO SCH (07:40)
[2018-01-30] MEDS ORDERED: FUROSEMIDE 40 MG TAB PO SCH (09:00)
[2018-01-30] MEDS ORDERED: SPIRONOLACTONE 25 MG TAB PO SCH (09:00)
[2018-01-30 12:17] VITALS: BP 100/53; PULSE 66; RESP 17
--- NOTE | 2018-01-30 14:29 | P.DS ---
Providers Date of admission: 01/29/18 13:16 Attending physician: Zhao Tineo Primary care physician: Stated None Hospital Course: Patient is being discharged home with home hospice. Please refer to dictation of my discharge summary from yesterday as well as progress note from yesterday for further details Plan - Discharge Summary New Discharge Prescriptions: Discontinued Atorvastatin [Lipitor] 20 mg PO HS Digoxin [Lanoxin] 125 mcg PO DAILY Spironolactone [Aldactone] 25 mg PO DAILY #30 tab Ferrous Sulfate [Iron (65 MG Elemental)] 325 mg PO W/LUNCH tab Metoprolol Tartrate [Lopressor] 25 mg PO BID tab Warfarin [Coumadin] 2 mg PO SUMOTUWETHSA Warfarin [Coumadin] 4 mg PO FR Losartan [Cozaar] 25 mg PO DAILY Omeprazole 20 mg PO DAILY Folic Acid 1 mg PO DAILY No Action Latanoprost [Xalatan 0.005%] 1 drop BOTH EYES HS Nitroglycerin Sl Tabs [Nitrostat] 0.4 mg SUBLINGUAL Q5M PRN tab PRN Reason: Chest Pain Promethazine [Phenergan] 12.5 mg PO Q6HR PRN PRN Reason: Nausea Cyanocobalamin [Vitamin B-12 Injection] 1,000 mcg IM FR Tamsulosin HCl [Flomax] 0.4 mg PO HS Discharge Medication List Latanoprost [Xalatan 0.005%] 1 drop BOTH EYES HS 12/06/17 [History] Nitroglycerin Sl Tabs [Nitrostat] 0.4 mg SUBLINGUAL Q5M PRN tab 12/17/17 [Rx] Cyanocobalamin [Vitamin B-12 Injection] 1,000 mcg IM FR 01/17/18 [History] Promethazine [Phenergan] 12.5 mg PO Q6HR PRN 01/17/18 [History] Tamsulosin HCl [Flomax] 0.4 mg PO HS 01/18/18 [History] Discharge Disposition: TRANSFER TO PSYCH HOSP/UNIT
== END 2018-01-30 12:57 | disposition hospice, home (50) | DRG 951 ==
LOC: 6SEL 13:16
PROVIDERS: ADMIT Hospitalist; ATTEND Hospitalist
DX: Z51.5 Encounter for palliative care (principal); J96.01 Acute respiratory failure with hypoxia; I50.23 Acute on chronic systolic (congestive) heart failure; I11.0 Hypertensive heart disease with heart failure; I48.91 Unspecified atrial fibrillation; Z66 Do not resuscitate; N40.0 Benign prostatic hyperplasia without lower urinary tract symptoms; K21.9 Gastro-esophageal reflux disease without esophagitis; E78.5 Hyperlipidemia, unspecified; I25.10 Atherosclerotic heart disease of native coronary artery without angina pectoris; I25.2 Old myocardial infarction; Z79.01 Long term (current) use of anticoagulants; Z79.899 Other long term (current) drug therapy; Z99.81 Dependence on supplemental oxygen; Z95.1 Presence of aortocoronary bypass graft; Z95.810 Presence of automatic (implantable) cardiac defibrillator; Z95.5 Presence of coronary angioplasty implant and graft; Z87.891 Personal history of nicotine dependence
CPT/HCPCS: 94760